=== PATIENT | female | born 1935 | race African-American/Black ===

== ENCOUNTER → 2016-07-13 | Outpatient (CLI) | payer MEDICARE, OTHER ==
[2015-10-21 19:17] VITALS: BP 141/78
[~2016-07-13] MED LIST: AMLO5TAB2 PO; AMOX1TAB61 PO; ASPI-482 PO; BUTA1CAP29 PO; CHOL100013 PO; HYDR-2672 PO; Hydrochlorothiazide PO; INFL100V IV; LOSA25TA4 PO; LOSA50TA2 PO; METO25TA9 PO; OMEG300C PO; ONDA4TAB10 PO; TRAM50TA PO
--- NOTE | 2016-07-13 15:04 | RAD ---
Renal ultrasound, 07/14/2016: History: Chronic kidney disease The right kidney measures 9.7 cm in length while the left kidney measures 9.4 cm. There is mild bilateral renal cortical scarring. The renal parenchymal echogenicity is within normal limits. There is no evidence of hydronephrosis or a renal mass. The bladder is poorly distended and well delineated. IMPRESSION: 1. Mild bilateral renal cortical scarring. 2. No evidence of renal obstruction.
[2016-07-13 15:36] LABS: ALBUMIN 3.4 g/dL (3.4-5.0); CALCIUM 9.5 mg/dL (8.5-10.1); CREATININE 1.3 mg/dL (0.6-1.0); GFR 47.5; PHOSPHORUS 3.1 mg/dL (2.6-4.7); POTASSIUM 4.2 mmol/L (3.5-5.1)
[2016-07-14 06:09] LABS: CREAT RD UR 21.5 mg/dL (Not Estab.); MICRO CREAT RATIO <55.8 mg/g creat (0.0-30.0); MICROALB RD UR <12.0 ug/mL (Not Estab.)
== END | disposition home or self-care (01) ==
LOC: US 13:24
PROVIDERS: ATTEND Internal Medicine Nephrology
DX: I12.9 Hypertensive chronic kidney disease with stage 1 through stage 4 chronic kidney disease, or unspecified chronic kidney disease (principal); N18.3 Chronic kidney disease, stage 3 (moderate); D63.1 Anemia in chronic kidney disease; R60.0 Localized edema; E21.3 Hyperparathyroidism, unspecified; N14.0 Analgesic nephropathy; E79.0 Hyperuricemia without signs of inflammatory arthritis and tophaceous disease; E55.9 Vitamin D deficiency, unspecified
CPT/HCPCS: 36415; 76770; 80069; 82043; 82570

== ENCOUNTER 2017-05-13 11:28 | Inpatient (IN) | payer MEDICARE, OTHER ==
[~2017-05-13] VITALS: Ht 157.5 cm; Wt 95.3 kg
[~2017-05-13 11:28] MED LIST changes: -HYDR-2672 PO; +HYDR-2766 PO; +METO-239 PO; -METO25TA9 PO
--- NOTE | 2017-05-13 12:06 | RAD ---
Lumbar spine, 3 views, 05/13/2017: History: Pain The lumbar vertebral heights are well-maintained. No acute fractures identified. There are moderate scattered marginal spurs. There are extensive hypertrophic degenerative changes involving the facet joints bilaterally in the lower lumbar spine. There appears to have been a previous laminectomy at the L5 level. Aortic calcific plaquing is present. IMPRESSION: Moderate multilevel degenerative change with extensive facet joint arthropathy in the lower lumbar spine.
--- NOTE | 2017-05-13 12:11 | PHYS DOC ---
General Chief Complaint: BACK PAIN OR INJURY Stated Complaint: BACK PAIN Time Seen by MD: 11:30 Source: patient, family Exam Limitations: no limitations Problems: History of Present Illness Initial Comments 81 y/o female to ED via EMS with report of 3 days low back pain. Patient states for three days she's had right flank pain and pain across her low back. Denies any falls or injury, has had urinary hesitancy no new leg weakness/incontinence/saddle anesthesia. Pain sharp, 8/10, worse with movement improved with rest. No midline or bony pain, no fever/chills/nausea/vomitting. No chest pain or shortness of breath. History of metastatic melanoma diagnosed 3 years ago follows at , PCP Dr Maldonado. She is s/p excision currently on dabrafenib. Patient is vague historian, once spouse arrives he states patient has had similar symptoms in the past. He says in past pains have been attributed to oral chemotherapy dabrafenib, and cutting that med dose in half has resolved her symptoms. Dosage adjusted yesterday, patient still hurting. He also relays that patient uses a walker at home but with the pain he's had to assist her standing from sitting/stooling, he says the pain/weakness has resolved more quickly in past with dosage adjustment, she also takes oxycodone IR 5mg prn q4hrs. Timing/Duration: other (3 days) Modifying Factors: worse with movement, improves with rest Associated Symptoms: other Allergies: Coded Allergies: No Known Drug Allergies (Unverified , 04/02/14) Past Medical History Medical History: other (metastatic melanoma, hypertension, renal insufficiency , obstructive sleep apnea uses CPAP, osteoarthritis, chronic left lower extremity lymphedema) Surgical History: cancer surgery, other (right Port-A-Cath, bilateral knees, tonsillectomy) Social History Smoker: non-smoker Alcohol: none Drugs: none Review of Systems Constitutional: denies chills, denies diaphoresis, denies fever, denies malaise Respiratory: denies cough, denies shortness of breath, denies wheezing Cardiovascular: denies chest pain, denies palpitations, denies syncope Gastrointestinal: denies abdominal pain, denies diarrhea, denies nausea, denies vomiting Genitourinary: denies dysuria, denies frequency, denies hematuria Musculoskeletal: see HPI Psychiatric/Neurological: see HPI, denies headache, denies numbness, denies paresthesia Hematologic/Lymphatic: denies blood clots, denies easy bleeding, denies easy bruising Physical Exam General Appearance: moderate distress (complaining of pain) Ear, Nose, Throat: hearing grossly normal, normal ENT inspection Neck: full range of motion, supple Respiratory: normal breath sounds, no respiratory distress Cardiovascular: normal peripheral pulses, regular rate, rhythm Gastrointestinal: non tender, soft Back: no vertebral tenderness, CVA tenderness (R) Extremities: non-tender, other (left leg swelling per HPI) 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 PHYSICIAN: TELLY APARICIO DO REASON: R hip and Lumbar spine pain no trauma PROCEDURE: LUMBAR SPINE 2-3V Lumbar spine, 3 views, 05/13/2017: History: Pain The lumbar vertebral heights are well-maintained. No acute fractures identified. There are moderate scattered marginal spurs. There are extensive hypertrophic degenerative changes involving the facet joints bilaterally in the lower lumbar spine. There appears to have been a previous laminectomy at the L5 level. Aortic calcific plaquing is present. IMPRESSION: Moderate multilevel degenerative change with extensive facet joint arthropathy in the lower lumbar spine. DICTATED AND SIGNED BY: TRACY DALY MD DATE: 05/13/17 1201 CC: NELIDA MALDONADO MD; TELLY APARICIO DO ~ PATIENT: WHITNEY FISHER ACCOUNT: [id number] : 1935 LOCATION: ER AGE: 81 SEX: F EXAM STATUS: REG ER ORD. PHYSICIAN: TELLY APARICIO DO REASON: R hip and Lumbar spine pain no trauma PROCEDURE: HIP BILATERAL WITH PELVIS Pelvis with both hips, 5 views, 05/13/2017: History: Pelvic, hip and back pain No fracture or dislocation is identified. No destructive bony lesion is seen. There is mild marginal spurring at both hip joints. Surgical clips are present at the inferior groin level on the left. IMPRESSION: 1. Mild degenerative change at both hip joints 2. No acute bony abnormality is detected. DICTATED AND SIGNED BY: TRACY DALY MD DATE: 05/13/17 1204 CC: NELIDA MALDONADO MD; TELLY APARICIO DO ~ Pain relief quickly with dilaudid 0.5mg IV x 1 on arrival, now 03/31. 1339: Time in department just over two hours, pt pain is much better but she has been unable to produce urine. With +Brandon and immunocompromise need UA, pt is drinking water no new or progressive complaints. 1431: Patient has been pain free, UA negative. Will ambulate to ensure her will be able to handle her at home. 1449: Patient requires two person assist to ambulate, is agreeable for admission. Basic labs initiated, will discuss with hospitalist. Pertinent labs: Sodium 128, BUN 22, creatinine 1.3, AST 61, creatine kinase 643 Patient discussed with transportation coordinator hospitalist Dr. Nash who accepts inpatient MedSurg admission for hydration, serial labs, and analgesia. Impressions: Adverse medication reaction with myalgia and weakness (danafrenib) Hypovolemic hyponatremia Elevated CK Departure Disposition: ADMITTED INPATIENT Condition: IMPROVED Additional Instructions: MedSurg admission Dr. Nash is accepting TELLY APARICIO DO May 13, 2017 12:11
[2017-05-13] MEDS ORDERED: HYDROmorphone PF 1 MG/ML DISP.SYRIN IV ONE (12:15)
[2017-05-13 14:12] LABS: BACTERIA,URINE FEW /HPF (0-FEW); BILIRUBIN,URINE NEG (NEG); CLARITY,URINE HAZY; COLOR,URINE AMBER; GLUCOSE,URINE NEG (NEG); NITRITE,URINE NEG (NEG); SQUAMOUS EPITHELIAL CELL,UR MOD /LPF; UROBILINOGEN,URINE 1 mg/dL (0.2 mg/dL)
[2017-05-13] MEDS ORDERED: IV NORMAL SALINE 1,000ML 1,000 ML IV SCH ×2 (14:41→16:02)
[2017-05-13 15:01] LABS: BASO % 1 % (0-3); EOS % 0 % (0-3); HEMATOCRIT 35.7 % (36.0-47.0); HEMOGLOBIN 12.3 g/dL (12.0-15.5); LYMPH # 0.9 x10^3/uL (1.0-4.8); LYMPH % 21 % (24-48); MEAN CORPUSCULAR HEMOGLOBIN 31 pg (25-35); MEAN CORPUSCULAR HGB CONC 34 g/dL (31-37); MEAN CORPUSCULAR VOLUME 91 fL (79-100); MONO # 0.1 x10^3/uL (0.0-1.1); MONO % 3 % (0-9); NEUT # 3.1 x10^3uL (1.8-7.7); NEUT % 76 % (31-73); PLATELET COUNT 151 x10^3/uL (140-400); RED BLOOD COUNT 3.94 x10^6/uL (3.50-5.40); RED CELL DISTRIBUTION WIDTH 13.1 % (11.5-14.5); WHITE BLOOD COUNT 4.1 x10^3/uL (4.0-11.0)
[2017-05-13 15:14] LABS: ALBUMIN 2.7 g/dL (3.4-5.0); ALBUMIN/GLOBULIN RATIO 0.6 (1.0-1.7); CALCIUM 8.7 mg/dL (8.5-10.1); CREATININE 1.3 mg/dL (0.6-1.0); GFR 47.5; POTASSIUM 3.9 mmol/L (3.5-5.1); TOTAL BILIRUBIN 0.4 mg/dL (0.2-1.0); TOTAL PROTEIN 6.9 g/dL (6.4-8.2)
[2017-05-13] MEDS ORDERED: MORPHINE SULFATE 4 MG/ML DISP.SYRIN. IV PRN (16:15)
[2017-05-13] MEDS ORDERED: ACET325T9 PO (17:52)
[2017-05-13] MEDS ORDERED: LEVO100T5 PO (17:52)
[2017-05-13] MEDS ORDERED: MULT1TAB52 PO (17:52)
[2017-05-13] MEDS ORDERED: POLY17PO5 PO (17:52)
[2017-05-13] MEDS ORDERED: LORA0.5T96 PO (17:52)
[2017-05-13] MEDS ORDERED: LOSA1TAB12 PO (17:52)
[2017-05-13] MEDS ORDERED: OXYC5TAB88 PO (17:52)
[2017-05-13] MEDS ORDERED: CLOT15CR3 TP (17:52)
[2017-05-13] MEDS ORDERED: CLOB15OI3 TP (17:52)
[2017-05-13 17:56] VITALS: BP 103/49
[2017-05-13] MEDS ORDERED: LORazepam 0.5 MG TABLET PO PRN (18:30)
[2017-05-13] MEDS ORDERED: POLYETHYLENE GLYCOL 3350 17 GM PACKET. PO PRN (18:30)
[2017-05-13] MEDS: ACETAMINOPHEN 325 MG TABLET PO PRN (19:01)
[2017-05-13 19:10] VITALS: BP 119/65
[2017-05-13] MEDS: ASPIRIN ENTERIC COATED 81 MG TABLET.DR. PO SCH (20:10)
[2017-05-13] MEDS: CLOBETASOL EMOLLIENT 0.05% TOPICAL CREAM 15GM TUBE. TP SCH (20:33)
[2017-05-13] MEDS: CLOTRIMAZOLE/BETAMETH 1%-0.05% TOPICAL CREAM 15GM TUBE. TP SCH (20:33)
[2017-05-13 23:04] VITALS: BP 160/78
[2017-05-14] MEDS: ACETAMINOPHEN 325 MG TABLET PO PRN ×4 (02:10→23:50)
[2017-05-14 04:29] LABS: INFLUENZA A PATIENT NEGATIVE (NEGATIVE); INFLUENZA B PATIENT NEGATIVE (NEGATIVE)
[2017-05-14 04:32] VITALS: BP 105/55
[2017-05-14 04:46] LABS: BASO % 1 % (0-3); EOS % 0 % (0-3); HEMATOCRIT 33.2 % (36.0-47.0); HEMOGLOBIN 11.5 g/dL (12.0-15.5); LYMPH # 0.3 x10^3/uL (1.0-4.8); LYMPH % 10 % (24-48); MEAN CORPUSCULAR HEMOGLOBIN 31 pg (25-35); MEAN CORPUSCULAR HGB CONC 35 g/dL (31-37); MEAN CORPUSCULAR VOLUME 90 fL (79-100); MONO # 0.1 x10^3/uL (0.0-1.1); MONO % 3 % (0-9); NEUT # 3.1 x10^3uL (1.8-7.7); NEUT % 87 % (31-73); PLATELET COUNT 127 x10^3/uL (140-400); RED BLOOD COUNT 3.67 x10^6/uL (3.50-5.40); RED CELL DISTRIBUTION WIDTH 13.2 % (11.5-14.5); WHITE BLOOD COUNT 3.5 x10^3/uL (4.0-11.0)
[2017-05-14 05:02] LABS: ALBUMIN 2.4 g/dL (3.4-5.0); ALBUMIN/GLOBULIN RATIO 0.6 (1.0-1.7); CALCIUM 8.3 mg/dL (8.5-10.1); CREATININE 1.3 mg/dL (0.6-1.0); GFR 47.5; MAGNESIUM 1.6 mg/dL (1.8-2.4); POTASSIUM 3.7 mmol/L (3.5-5.1); TOTAL BILIRUBIN 0.5 mg/dL (0.2-1.0); TOTAL PROTEIN 6.3 g/dL (6.4-8.2)
[2017-05-14 05:39] LABS: % BANDS 35 % (0-9); % LYMPHS 9 % (24-48); % METAS 1 % (0-0); % MONOS 3 % (0-10); % SEGS 52 % (35-66); PLT ESTIMATE ADEQUATE (ADEQUATE)
[2017-05-14 05:40] LABS: ANISOCYTOSIS SLIGHT; HYPOCHROMIA SLIGHT; PLATELET CLUMP PRESENT; POLYCHROMASIA SLIGHT
[2017-05-14 05:41] LABS: OVALOCYTES OCC; TOXIC GRANULATION MOD; TOXIC VACUOLATION MOD
[2017-05-14] MEDS: IV NORMAL SALINE 1,000ML 1,000 ML IV SCH ×2 (05:58→15:49)
[2017-05-14 06:20] VITALS: BP 169/81
[2017-05-14] MEDS: LEVOTHYROXINE 100 MCG TABLET PO SCH (07:05)
--- NOTE | 2017-05-14 07:07 | EKG ---
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
[2017-05-14] MEDS: CHOLECALCIFEROL (VITAMIN D3) 1,000 UNIT TABLET PO SCH ×2 (09:00→21:30)
[2017-05-14] MEDS ORDERED: METOPROLOL SUCC 24HR ER 25 MG TAB.ER.24H. PO SCH (09:00)
[2017-05-14] MEDS ORDERED: hydroCHLOROthiazide 25 MG TABLET PO SCH (09:00)
[2017-05-14] MEDS: CLOBETASOL EMOLLIENT 0.05% TOPICAL CREAM 15GM TUBE. TP SCH ×2 (09:00→21:00)
[2017-05-14] MEDS: CLOTRIMAZOLE/BETAMETH 1%-0.05% TOPICAL CREAM 15GM TUBE. TP SCH ×2 (09:00→21:00)
[2017-05-14] MEDS ORDERED: OSELTAMIVIR 75 MG CAPSULE PO SCH (09:00)
--- NOTE | 2017-05-14 09:00 | PDOC2 ---
CONSULT Date of Admission DATE: 05/14/17 TIME: 08:53 Reason for Consult: tachycardia Problem List Problems Medical Problems: (1) Weakness Status: Acute History of Present Illness Ms Langford is an 81 year old female who presented with complaints of low back and flank pain as well as weakness. She was admitted for evaluation and this am was noted to be in atrial fibrillation with a rapid ventricular response so consult was called. She was given pain medications which apparently resolved her pain and this am she is up in a chair without complaints. She did develop a fever but denies any respiratory of urinary symptoms. She denies any chest pain, dyspnea, congestive symptoms. She denies any palpitations, lightheadedness or syncope. Past Medical History hypertension, chronic kidney disease, morbid obesity, obstructive sleep apnea on CPAP, metastatic melanoma, osteoarthritis and left lower extremity lymphedema secondary to resection of melanoma, rheumatoid arthritis. Past Surgical History Port-A-Cath placement, right knee arthroscopic surgery, left total knee arthroplasty, back surgery, tonsillectomy, appendectomy Family History cancer, diabetes, CAD Social History non smoker, No significant ETOH, no illicit drugs Current Medications Current Medications Hydromorphone HCl (Dilaudid) 0.5 mg 1X ONCE IV Last administered on 05/13/17at 12:21; Start 05/13/17 at 12:15; Stop 05/13/17 at 12:16; Status DC Sodium Chloride 1,000 ml @ 1,000 mls/hr Q1H IV Last administered on 05/13/17at 14:41; Start 05/13/17 at 14:41; Stop 05/13/17 at 15:41; Status DC Morphine Sulfate (Morphine 4mg Syringe) 4 mg PRN Q2HR PRN IV PAIN; Start at 16:15; Stop 05/14/17 at 16:14 Sodium Chloride 1,000 ml @ 200 mls/hr Q5H IV Last administered on 05/13/17at 19 :02; Start 05/13/17 at 16:02; Stop 05/13/17 at 21:01; Status DC Acetaminophen (Tylenol) 650 mg PRN Q6HRS PRN PO PAIN Last administered on at 02:10; Start 05/13/17 at 18:30 Aspirin (Aspirin Enteric Coated) 81 mg HS PO Last administered on 05/13/17at 20: 10; Start 05/13/17 at 21:00 Betamethasone/ Clotrimazole (Lotrisone) 1 jaden BID TP ; Start 05/13/17 at 21:00 Levothyroxine Sodium (Synthroid) 100 mcg DAILYAC PO Last administered on at 07:05; Start 05/14/17 at 07:30 Lorazepam (Ativan) 0.5 mg PRN QHS PRN PO ANXIETY / AGITATION; Start 05/13/17 at 18:30 Metoprolol Succinate (Toprol Xl) 25 mg DAILY PO ; Start 05/14/17 at 09:00 Oxycodone HCl (Roxicodone) 5 mg PRN Q4HRS PRN PO PAIN; Start 05/13/17 at 18:30 Polyethylene Glycol (miraLAX) 17 gm PRN DAILY PRN PO CONSTIPATION; Start at 18:30 Vitamin D (Vitamin D3) 1,000 unit QHS PO ; Start 05/14/17 at 09:00 Clobetasol Propionate 1 jaden BID TP ; Start 05/13/17 at 21:00 Losartan Potassium (Cozaar) 100 mg DAILY PO ; Start 05/14/17 at 09:00 Multivitamins/ Calcium (Thera-M Plus) 1 tab DAILY PO ; Start 05/14/17 at 09:00 Fish Oil (Fish Oil) 1,000 mg BID PO ; Start 05/14/17 at 09:00 Hydrochlorothiazide (Hydrodiuril) 25 mg DAILY PO ; Start 05/14/17 at 09:00 Sodium Chloride 1,000 ml @ 75 mls/hr [id number] IV Last administered on at 05:58; Start 05/14/17 at 06:00 Oseltamivir Phosphate (Tamiflu) 75 mg DAILY PO ; Start 05/14/17 at 09:00; Stop 05/24/17 at 08:59 Active Scripts Active Reported Multivitamins (Multivitamin) 1 Each Tablet 1 Tab PO DAILY Miralax (Polyethylene Glycol 3350) 17 Gm Powd.pack 1 Packet PO DAILY PRN Roxicodone (Oxycodone HCl) 5 Mg Tablet 5 Mg PO PRN Q4HRS PRN Hyzaar 100-25 Tablet (Losartan/Hydrochlorothiazide) 1 Each Tablet 1 Tab PO DAILY Ativan (Lorazepam) 0.5 Mg Tablet 0.5 Mg PO PRN QHS PRN Levothyroxine Sodium 100 Mcg Tablet 1 Tab PO DAILYAC Lotrisone Cream (Clotrimazole/Betamethasone Dip) 15 Gm Cream..g. 1 Jaden TP BID Temovate (Clobetasol Propionate) 15 Gm Oint...g. 1 Jaden TP BID Tylenol (Acetaminophen) 325 Mg Tablet 2 Tab PO PRN Q6HRS PRN Metoprolol Succinate ( Xl ) (Metoprolol Succinate) 25 Mg Tab.er.24h 1 Tab PO DAILY Vitamin D (Cholecalciferol (Vitamin D3)) 1,000 Unit Capsule 1 Cap PO HS Aspir 81 (Aspirin) 81 Mg Tablet.dr 1 Tab PO HS Fish Oil (Jane Lew-3 Fatty Acids) 300 Mg Capsule 300 Mg PO BID Allergies: Coded Allergies: No Known Drug Allergies (Unverified , 04/02/14) Review of System as per HPI General: Alert, Oriented X3, Cooperative, No acute distress HEENT: Atraumatic, EOMI Lungs: Clear to auscultation Heart: Other (irregular rate and rhythm, no gallops, clicks or rubs) Abdomen: Normal bowel sounds, Soft Extremities: Other (1+ edema) Neuro: Normal speech, Strength at 5/5 X4 ext Psych/Mental Status: Mental status NL, Mood NL VITALS Vital Signs Date Time Temp Pulse Resp B/P (MAP) Pulse Ox O2 Delivery O2 Flow Rate FiO2 05/14/17 06:20 102.8 78 16 169/81 (110) 96 Room Air Labs Laboratory Tests Test 05/13/17 12:20 05/13/17 13:47 05/14/17 02:33 05/14/17 03:53 White Blood Count 4.1 x10^3/uL (4.0-11.0) 3.5 x10^3/uL (4.0-11.0) Red Blood Count 3.94 x10^6/uL (3.50-5.40) 3.67 x10^6/uL (3.50-5.40) Hemoglobin 12.3 g/dL (12.0-15.5) 11.5 g/dL (12.0-15.5) Hematocrit 35.7 % (36.0-47.0) 33.2 % (36.0-47.0) Mean Corpuscular Volume 91 fL (79-100) 90 fL (79-100) Mean Corpuscular Hemoglobin 31 pg (25-35) 31 pg (25-35) Mean Corpuscular Hemoglobin Concent 34 g/dL (31-37) 35 g/dL (31-37) Red Cell Distribution Width 13.1 % (11.5-14.5) 13.2 % (11.5-14.5) Platelet Count 151 x10^3/uL (140-400) 127 x10^3/uL (140-400) Neutrophils (%) (Auto) 76 % (31-73) 87 % (31-73) Lymphocytes (%) (Auto) 21 % (24-48) 10 % (24-48) Monocytes (%) (Auto) 3 % (0-9) 3 % (0-9) Eosinophils (%) (Auto) 0 % (0-3) 0 % (0-3) Basophils (%) (Auto) 1 % (0-3) 1 % (0-3) Neutrophils # (Auto) 3.1 x10^3uL (1.8-7.7) 3.1 x10^3uL (1.8-7.7) Lymphocytes # (Auto) 0.9 x10^3/uL (1.0-4.8) 0.3 x10^3/uL (1.0-4.8) Monocytes # (Auto) 0.1 x10^3/uL (0.0-1.1) 0.1 x10^3/uL (0.0-1.1) Eosinophils # (Auto) 0.0 x10^3/uL (0.0-0.7) 0.0 x10^3/uL (0.0-0.7) Basophils # (Auto) 0.0 x10^3/uL (0.0-0.2) 0.0 x10^3/uL (0.0-0.2) Sodium Level 128 mmol/L (136-145) 128 mmol/L (136-145) Potassium Level 3.9 mmol/L (3.5-5.1) 3.7 mmol/L (3.5-5.1) Chloride Level 93 mmol/L (98-107) 95 mmol/L (98-107) Carbon Dioxide Level 25 mmol/L (21-32) 24 mmol/L (21-32) Anion Gap 10 (6-14) 9 (6-14) Blood Urea Nitrogen 22 mg/dL (7-20) 19 mg/dL (7-20) Creatinine 1.3 mg/dL (0.6-1.0) 1.3 mg/dL (0.6-1.0) Estimated GFR (Cockcroft-Gault) 47.5 47.5 BUN/Creatinine Ratio 17 (6-20) 15 (6-20) Glucose Level 117 mg/dL (70-99) 127 mg/dL (70-99) Calcium Level 8.7 mg/dL (8.5-10.1) 8.3 mg/dL (8.5-10.1) Total Bilirubin 0.4 mg/dL (0.2-1.0) 0.5 mg/dL (0.2-1.0) Aspartate Amino Transf (AST/SGOT) 61 U/L (15-37) 82 U/L (15-37) Alanine Aminotransferase (ALT/SGPT) 38 U/L (14-59) 42 U/L (14-59) Alkaline Phosphatase 94 U/L (46-116) 90 U/L (46-116) Creatine Kinase 643 U/L (26-192) Troponin I Quantitative 0.040 ng/mL (0-0.055) OC-Rti-U-Type Natriuretic Peptide 132 pg/mL (0-449) Total Protein 6.9 g/dL (6.4-8.2) 6.3 g/dL (6.4-8.2) Albumin 2.7 g/dL (3.4-5.0) 2.4 g/dL (3.4-5.0) Albumin/Globulin Ratio 0.6 (1.0-1.7) 0.6 (1.0-1.7) Urine Collection Type Unknown Urine Color Nesha Urine Clarity Hazy Urine pH 5.5 Urine Specific [place] 1.020 Urine Protein Trace (NEG-TRACE) Urine Glucose (UA) Neg mg/dL (NEG) Urine Ketones (Stick) Trace mg/dL (NEG) Urine Blood Neg (NEG) Urine Nitrite Neg (NEG) Urine Bilirubin Neg (NEG) Urine Urobilinogen Dipstick 1 mg/dL (0.2 mg/dL) Urine Leukocyte Esterase Neg (NEG) Urine RBC 1-2 /HPF (0-2) Urine WBC 1-4 /HPF (0-4) Urine Squamous Epithelial Cells Mod /LPF Urine Bacteria Few /HPF (0-FEW) Urine Mucus Mod /LPF Influenza Type A (Rapid) Negative (NEGATIVE) Influenza Type B (Rapid) Negative (NEGATIVE) Segmented Neutrophils % 52 % (35-66) Band Neutrophils % 35 % (0-9) Lymphocytes % 9 % (24-48) Monocytes % 3 % (0-10) Metamyelocytes % 1 % (0-0) Toxic Granulation Mod Toxic Vacuolation Mod Dohle Bodies Few Platelet Estimate Adequate (ADEQUATE) Platelet Clumps, EDTA Present Large Platelets Occ Giant Platelets Occ Polychromasia Slight Hypochromasia Slight Anisocytosis Slight Ovalocytes Occ Lactic Acid Level 0.7 mmol/L (0.4-2.0) Magnesium Level 1.6 mg/dL (1.8-2.4) Test 05/14/17 05:43 05/14/17 06:45 Group A Streptococcus Rapid Negative (NEGATIVE) Creatine Kinase 1310 U/L (26-192) Creatine Kinase MB (Mass) 2.2 ng/mL (0.0-3.6) Creatine Kinase MB Relative Index 0.2 % (0-4) Bedside Troponin I 0.08 ng/ml (<0.08) Images Lumbar spine xray IMPRESSION: Moderate multilevel degenerative change with extensive facet joint arthropathy in the lower lumbar spine. Hip/pelvis xray IMPRESSION: 1. Mild degenerative change at both hip joints 2. No acute bony abnormality is detected. EKG atrial fibrillation with RVR, left axis deviation, no acute st/t changes Assessment/Plan 1. paroxysmal atrial fibrillation RVR - [id number] = 4. Check echocardiogram , TSH. Increase metoprolol for rate control, Cardizem PRN. Eliquis for stroke prophylaxis. 2. hypertension - increase metoprolol, PRN hydralazine. 3. HLD - check lipids 4. FUO - cx pending, per PCP 5. low back/flank pain - per PCP Problems: ELISSA CHAHAL APRN May 14, 2017 09:00
[2017-05-14] MEDS ORDERED: DEXTROSE 5% IV PRN (09:30)
[2017-05-14] MEDS ORDERED: DILTIAZEM IV PRN (09:30)
[2017-05-14] MEDS ORDERED: METOPROLOL SUCC 24HR ER 50 MG TAB.ER.24H. PO SCH (09:30)
[2017-05-14] MEDS: OMEGA-3 FATTY ACIDS/FISH OIL 1,000 MG CAPSULE. PO SCH ×2 (09:44→21:30)
[2017-05-14] MEDS: APIXABAN 5 MG TABLET. PO SCH ×2 (09:45→21:30)
[2017-05-14] MEDS: LOSARTAN 50 MG TABLET. PO SCH (09:45)
[2017-05-14] MEDS: MULTIVITAMIN with MINERAL TABLET. PO SCH (09:45)
--- NOTE | 2017-05-14 10:47 | RAD ---
Portable chest, 05/14/2017: History: Fever Comparison is made to a study from 10/25/2015. A right Port-A-Cath extends into the superior aspect of the right atrium. The heart size and pulmonary vascularity are normal. A vague opacity projected over the right upper chest is probably related to the port. No definite acute infiltrate is seen. There is no evidence of pleural fluid. IMPRESSION: No acute cardiopulmonary abnormality is detected.
[2017-05-14 11:14] VITALS: BP 100/66
--- NOTE | 2017-05-14 14:08 | HP ---
ADMIT DATE: 05/13/2017 REASON FOR ADMISSION: Back pain. HISTORY OF PRESENT ILLNESS: This is an 81-year-old female who came to the Emergency Room with reports of 3 days of low back pain, right flank pain; at that time she has had some urinary hesitancy. She got some Dilaudid in the Emergency Room and that relieved her back pain. She did have a lot of myalgias. Her mobility was severely impaired and so it was decided to admit her. Then, she did spike a temperature while on the floor. PAST MEDICAL HISTORY: Significant for malignant melanoma which she has been on a chemotherapy drug called Dabrafenib, which she has had some doses cut down and then being and where she has had some problems with pain with this. I guess it is being held at the present time. Other medical problems include hypertension, chronic kidney disease, morbid obesity, obstructive sleep apnea, osteoarthritis, lower extremity lymphedema. PAST SURGICAL HISTORY: Port-A-Cath placement in the right infraclavicular area, right knee arthroscopic surgery, total left knee arthroplasty, back surgery, tonsillectomy and resection of the melanoma on the left hip. ALLERGIES: None. MEDICATIONS: Reviewed and are available on the MAR. FAMILY HISTORY: She comes from a very large family of 2 brothers and 7 sisters, and 8 brothers apparently . 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 REVIEW OF SYSTEMS: The patient feels very weak, unable to stand, cannot move very well, chills, mild confusion. OBJECTIVE: VITAL SIGNS: Temperature this morning was 102.8 oral, blood pressure was 169/81; pulse 78, pulse also increased to 151 and was found to be in AFib with RVR, pulse ox 96% on room air. NEUROLOGIC: Her mental state is somewhat confused. She has chills. HEENT: Her eyes are clear. Throat was clear. There was no injection of the posterior pharynx. NECK: Supple. LUNGS: With some coarse breath sounds in the bases, otherwise clear. CARDIOVASCULAR: Rapid rhythm and rate consistent with an irregular rhythm consistent with AFib with rapid ventricular response. ABDOMEN: Soft, nontender. EXTREMITIES: Without gross edema, did not have back pain. LABORATORY DATA: CBC: White count decreased to 3.5 this morning, hemoglobin 11.5, hematocrit 33.2, platelet count 127. Chemistry: Sodium 128, chloride 95, creatinine 1.3. CK is 1310, albumin 2.4. Strep negative. Influenza A and B also negative. Urinalysis negative except with trace of ketones. IMAGING: Chest x-ray negative for pneumonia. Hip and pelvis x-ray with mild degeneration of both hips, otherwise negative. Lumbar spine x-ray, moderate multilevel degenerative changes. ASSESSMENT: 1. Febrile illness, suspect influenza with low white count, we will start on Tamiflu. 2. Mild rhabdomyolysis, questionable etiology, appears somewhat dehydrated and is receiving IV fluids. 3. Dehydration. 4. Extreme weakness and debility, requiring a 2-person lift to get her into bed, we will have PT and OT see. 5. History of metastatic melanoma, chemo being held currently. 6. Hypertension. 7. Paroxysmal atrial fibrillation with rapid ventricular rate, secondary to the fever. Cardiology is monitoring and has increased the metoprolol, could go along the drip and be transferred to the ICU if it becomes continuous 8. Debilitated state. PLAN: IV fluid, support, PT, OT, Tamiflu. The patient is a DNR. Monitor heart rate closely, protect from falls. MEL TARANGO DO DR: DARRICK/mina JOB#: [id number] / [id number]
[2017-05-14 14:44] LABS: THYROID STIM HORMONE (TSH) 0.143 uIU/mL (0.358-3.740)
[2017-05-14 15:05] VITALS: BP 89/56
[2017-05-14] MEDS: oxyCODONE IR 5 MG TABLET PO PRN (16:27)
[2017-05-14] MEDS: METOPROLOL TART IMMED RELEASE 25 MG TABLET PO SCH ×2 (18:00→23:49)
[2017-05-14 19:57] VITALS: BP 92/60
[2017-05-14] MEDS: OSELTAMIVIR 75 MG CAPSULE PO SCH (21:30)
[2017-05-14] MEDS: ASPIRIN ENTERIC COATED 81 MG TABLET.DR. PO SCH (21:30)
[2017-05-14 23:53] VITALS: BP 116/76
[2017-05-15] VITALS (15 sets, daily range): BP systolic 64–131; BP diastolic 46–86
[2017-05-15] MEDS: IV NORMAL SALINE 1,000ML 1,000 ML IV SCH ×4 (01:48→23:40)
[2017-05-15] MEDS: METOPROLOL TART IMMED RELEASE 25 MG TABLET PO SCH ×2 (05:50→12:25)
[2017-05-15] MEDS: LEVOTHYROXINE 100 MCG TABLET PO SCH (05:50)
[2017-05-15] MEDS: ACETAMINOPHEN 325 MG TABLET PO PRN ×3 (05:51→19:46)
--- NOTE | 2017-05-15 07:37 | PDOC ---
PROGRESS NOTES Diagnosis Problem Problems Medical Problems: (1) Weakness Status: Acute Assessment 1. Generalized weakness: Was having difficult walking prior to admission. Imaging studies negative. Pt retains strength against resistance in all extremities. CK was elevated, will repeat today. 2. Febrile illness: Rapid flu and strep negative. Pt CXR negative, UA negative. Pt is on chemotherapy for metastatic melanoma, mildly neutropenic yesterday. Continues to have high fevers, is on Tamiflu for presumed flu, respiratory viral panel pending. Pt on droplet isolation. Consider empiric abx if WBC worse today. Source unknown at this time, so still highly likely to be viral. Stools formed today. Continue PRN Tylenol for fever. 3. Hyponatremia: Pt on IVF, will repeat lytes today. 4. Moderate-severe PEM: Encourage nutritional supplements. 5. Metastatic melanoma: Pt receives treatment for [facility]. If pt becomes neutropenic, will need to d/w pt re: possible transfer to . 6. DVT proph: Pt high risk, on Eliquis for Afib. Cont SCD's. 7. Elevated transaminases: Repeat today. 8. Mild rhabdomyolysis: Pt on IVF. Weakness improving. Repeat CK today. 9. CKD, stage 2: Creat 1.3 on admit, baseline 1.1. Continue hydration, repeat BMP today. 10. Abnormal TSH: A little low. Will adjust accordingly. Decrease home Levothyroxine from 100 mcg to 88 mcg daily. Repeat TSH in 4 weeks. 11. Atrial fibrillation: Pt on Eliquis, cardiology following. Echo pending. Continue BB, PRN CCB. Problems: Plan of Care: see other orders Subjective Pt admitted after experience extreme weakness and inability to walk at home. Reports high fevers started after admission. Pt currently being treated empirically for the flu. Cultures NGTD. Pt not having diarrhea. Denies vomiting, abd pain, SOA, productive cough, or burning w/ urination. Pt reports she feels a little "confused." Denies KWON or dizziness. Per nursing, pt still spiking fevers as high as 103 overnight. Pt reports that prior to coming to hospital she was evaluated by her oncologist and they suspected that her chemo med was potentially causing some of her weakness. Objective Vital Signs Date Time Temp Pulse Resp B/P (MAP) Pulse Ox O2 Delivery O2 Flow Rate FiO2 05/15/17 05:54 101.1 96 18 109/62 (78) 91 BiPAP/CPAP Intake and Output 05/15/17 07:00 Intake Total 3223.67 ml Output Total 403 ml Balance 2820.67 ml Intake Oral 1240 ml IV Total 1983.67 ml Output Urine Total 403 ml # Voids 1 # Bowel Movements 1 Abdomen: Normal bowel sounds, Soft, No tenderness, No hepatospenomegaly, No masses Heart: Other (Irregularly irregular, no murmur) Extremities: Normal pulses, No tenderness/swelling General: Alert, Cooperative, No acute distress HEENT: Atraumatic, PERRLA, EOMI, Mucous membr. moist/pink Lungs: Clear to auscultation, Normal air movement Neck: No JVD, No thyromegaly, No LAD Neuro: Normal speech, Strength at 5/5 X4 ext, Normal tone, Cranial nerves 3-12 NL Psych/Mental Status: Mental status NL, Mood NL Skin: No rashes Review of Relevant I have reviewed the following items john (where applicable) has been applied. Labs Laboratory Tests Test 05/13/17 12:20 05/13/17 13:47 05/14/17 02:33 05/14/17 03:53 White Blood Count 4.1 x10^3/uL (4.0-11.0) 3.5 x10^3/uL (4.0-11.0) Red Blood Count 3.94 x10^6/uL (3.50-5.40) 3.67 x10^6/uL (3.50-5.40) Hemoglobin 12.3 g/dL (12.0-15.5) 11.5 g/dL (12.0-15.5) Hematocrit 35.7 % (36.0-47.0) 33.2 % (36.0-47.0) Mean Corpuscular Volume 91 fL (79-100) 90 fL (79-100) Mean Corpuscular Hemoglobin 31 pg (25-35) 31 pg (25-35) Mean Corpuscular Hemoglobin Concent 34 g/dL (31-37) 35 g/dL (31-37) Red Cell Distribution Width 13.1 % (11.5-14.5) 13.2 % (11.5-14.5) Platelet Count 151 x10^3/uL (140-400) 127 x10^3/uL (140-400) Neutrophils (%) (Auto) 76 % (31-73) 87 % (31-73) Lymphocytes (%) (Auto) 21 % (24-48) 10 % (24-48) Monocytes (%) (Auto) 3 % (0-9) 3 % (0-9) Eosinophils (%) (Auto) 0 % (0-3) 0 % (0-3) Basophils (%) (Auto) 1 % (0-3) 1 % (0-3) Neutrophils # (Auto) 3.1 x10^3uL (1.8-7.7) 3.1 x10^3uL (1.8-7.7) Lymphocytes # (Auto) 0.9 x10^3/uL (1.0-4.8) 0.3 x10^3/uL (1.0-4.8) Monocytes # (Auto) 0.1 x10^3/uL (0.0-1.1) 0.1 x10^3/uL (0.0-1.1) Eosinophils # (Auto) 0.0 x10^3/uL (0.0-0.7) 0.0 x10^3/uL (0.0-0.7) Basophils # (Auto) 0.0 x10^3/uL (0.0-0.2) 0.0 x10^3/uL (0.0-0.2) Sodium Level 128 mmol/L (136-145) 128 mmol/L (136-145) Potassium Level 3.9 mmol/L (3.5-5.1) 3.7 mmol/L (3.5-5.1) Chloride Level 93 mmol/L (98-107) 95 mmol/L (98-107) Carbon Dioxide Level 25 mmol/L (21-32) 24 mmol/L (21-32) Anion Gap 10 (6-14) 9 (6-14) Blood Urea Nitrogen 22 mg/dL (7-20) 19 mg/dL (7-20) Creatinine 1.3 mg/dL (0.6-1.0) 1.3 mg/dL (0.6-1.0) Estimated GFR (Cockcroft-Gault) 47.5 47.5 BUN/Creatinine Ratio 17 (6-20) 15 (6-20) Glucose Level 117 mg/dL (70-99) 127 mg/dL (70-99) Calcium Level 8.7 mg/dL (8.5-10.1) 8.3 mg/dL (8.5-10.1) Total Bilirubin 0.4 mg/dL (0.2-1.0) 0.5 mg/dL (0.2-1.0) Aspartate Amino Transf (AST/SGOT) 61 U/L (15-37) 82 U/L (15-37) Alanine Aminotransferase (ALT/SGPT) 38 U/L (14-59) 42 U/L (14-59) Alkaline Phosphatase 94 U/L (46-116) 90 U/L (46-116) Creatine Kinase 643 U/L (26-192) Troponin I Quantitative 0.040 ng/mL (0-0.055) HH-Rjq-I-Type Natriuretic Peptide 132 pg/mL (0-449) Total Protein 6.9 g/dL (6.4-8.2) 6.3 g/dL (6.4-8.2) Albumin 2.7 g/dL (3.4-5.0) 2.4 g/dL (3.4-5.0) Albumin/Globulin Ratio 0.6 (1.0-1.7) 0.6 (1.0-1.7) Urine Collection Type Unknown Urine Color Nesha Urine Clarity Hazy Urine pH 5.5 Urine Specific [place] 1.020 Urine Protein Trace (NEG-TRACE) Urine Glucose (UA) Neg mg/dL (NEG) Urine Ketones (Stick) Trace mg/dL (NEG) Urine Blood Neg (NEG) Urine Nitrite Neg (NEG) Urine Bilirubin Neg (NEG) Urine Urobilinogen Dipstick 1 mg/dL (0.2 mg/dL) Urine Leukocyte Esterase Neg (NEG) Urine RBC 1-2 /HPF (0-2) Urine WBC 1-4 /HPF (0-4) Urine Squamous Epithelial Cells Mod /LPF Urine Bacteria Few /HPF (0-FEW) Urine Mucus Mod /LPF Influenza Type A (Rapid) Negative (NEGATIVE) Influenza Type B (Rapid) Negative (NEGATIVE) Segmented Neutrophils % 52 % (35-66) Band Neutrophils % 35 % (0-9) Lymphocytes % 9 % (24-48) Monocytes % 3 % (0-10) Metamyelocytes % 1 % (0-0) Toxic Granulation Mod Toxic Vacuolation Mod Dohle Bodies Few Platelet Estimate Adequate (ADEQUATE) Platelet Clumps, EDTA Present Large Platelets Occ Giant Platelets Occ Polychromasia Slight Hypochromasia Slight Anisocytosis Slight Ovalocytes Occ Lactic Acid Level 0.7 mmol/L (0.4-2.0) Magnesium Level 1.6 mg/dL (1.8-2.4) Test 05/14/17 05:43 05/14/17 06:45 Group A Streptococcus Rapid Negative (NEGATIVE) Creatine Kinase 1310 U/L (26-192) Creatine Kinase MB (Mass) 2.2 ng/mL (0.0-3.6) Creatine Kinase MB Relative Index 0.2 % (0-4) Bedside Troponin I 0.08 ng/ml (<0.08) Triglycerides Level 100 mg/dL (0-150) Cholesterol Level 128 mg/dL (0-200) LDL Cholesterol, Calculated 68 mg/dL (0-100) VLDL Cholesterol, Calculated 20 mg/dL (0-40) Non-HDL Cholesterol Calculated 88 mg/dL (0-129) HDL Cholesterol 40 mg/dL (40-60) Cholesterol/HDL Ratio 3.0 Thyroid Stimulating Hormone (TSH) 0.143 uIU/mL (0.358-3.740) Microbiology 05/14/17 Blood Culture - Preliminary, Resulted NO GROWTH AFTER 1 DAY Medications Current Medications Hydromorphone HCl (Dilaudid) 0.5 mg 1X ONCE IV Last administered on 05/13/17at 12:21; Start 05/13/17 at 12:15; Stop 05/13/17 at 12:16; Status DC Sodium Chloride 1,000 ml @ 1,000 mls/hr Q1H IV Last administered on 05/13/17at 14:41; Start 05/13/17 at 14:41; Stop 05/13/17 at 15:41; Status DC Morphine Sulfate (Morphine 4mg Syringe) 4 mg PRN Q2HR PRN IV PAIN; Start at 16:15; Stop 05/14/17 at 16:14; Status DC Sodium Chloride 1,000 ml @ 200 mls/hr Q5H IV Last administered on 05/13/17at 19 :02; Start 05/13/17 at 16:02; Stop 05/13/17 at 21:01; Status DC Acetaminophen (Tylenol) 650 mg PRN Q6HRS PRN PO PAIN Last administered on at 05:51; Start 05/13/17 at 18:30 Aspirin (Aspirin Enteric Coated) 81 mg HS PO Last administered on 05/14/17at 21: 30; Start 05/13/17 at 21:00 Betamethasone/ Clotrimazole (Lotrisone) 1 jaden BID TP ; Start 05/13/17 at 21:00 Levothyroxine Sodium (Synthroid) 100 mcg DAILYAC PO Last administered on at 05:50; Start 05/14/17 at 07:30 Lorazepam (Ativan) 0.5 mg PRN QHS PRN PO ANXIETY / AGITATION Last administered on 05/14/17at 21:31; Start 05/13/17 at 18:30 Metoprolol Succinate (Toprol Xl) 25 mg DAILY PO ; Start 05/14/17 at 09:00; Stop 05/14/17 at 09:21; Status DC Oxycodone HCl (Roxicodone) 5 mg PRN Q4HRS PRN PO PAIN Last administered on 05/14at 16:27; Start 05/13/17 at 18:30 Polyethylene Glycol (miraLAX) 17 gm PRN DAILY PRN PO CONSTIPATION; Start at 18:30 Vitamin D (Vitamin D3) 1,000 unit QHS PO Last administered on 05/14/17at 21:30; Start 05/14/17 at 09:00 Clobetasol Propionate 1 jaden BID TP ; Start 05/13/17 at 21:00 Losartan Potassium (Cozaar) 100 mg DAILY PO Last administered on 05/14/17at 09: 45; Start 05/14/17 at 09:00 Multivitamins/ Calcium (Thera-M Plus) 1 tab DAILY PO Last administered on at 09:45; Start 05/14/17 at 09:00 Fish Oil (Fish Oil) 1,000 mg BID PO Last administered on 05/14/17at 21:30; Start 05/14/17 at 09:00 Hydrochlorothiazide (Hydrodiuril) 25 mg DAILY PO ; Start 05/14/17 at 09:00; Stop 05/14/17 at 09:24; Status DC Sodium Chloride 1,000 ml @ 75 mls/hr [id number] IV Last administered on at 01:48; Start 05/14/17 at 06:00 Oseltamivir Phosphate (Tamiflu) 75 mg DAILY PO Last administered on 05/14/17at 09:45; Start 05/14/17 at 09:00; Stop 05/14/17 at 09:53; Status DC Metoprolol Succinate (Toprol Xl) 50 mg DAILY PO Last administered on 05/14/17at 09:45; Start 05/14/17 at 09:30; Stop 05/14/17 at 16:14; Status DC Diltiazem HCl 100 mg/Dextrose 100 ml @ 0 mls/hr CONT PRN IV SEE I/O RECORD; Start 05/14/17 at 09:30 Apixaban (Eliquis) 5 mg BID PO Last administered on 05/14/17at 21:30; Start at 09:30 Oseltamivir Phosphate (Tamiflu) 75 mg BID PO Last administered on 05/14/17at 21: 30; Start 05/14/17 at 21:00; Stop 05/19/17 at 20:59 Metoprolol Tartrate (Lopressor) 25 mg Q6HRS PO Last administered on 05/15/17at 05:50; Start 05/14/17 at 18:00 Active Scripts Active Reported Multivitamins (Multivitamin) 1 Each Tablet 1 Tab PO DAILY Miralax (Polyethylene Glycol 3350) 17 Gm Powd.pack 1 Packet PO DAILY PRN Roxicodone (Oxycodone HCl) 5 Mg Tablet 5 Mg PO PRN Q4HRS PRN Hyzaar 100-25 Tablet (Losartan/Hydrochlorothiazide) 1 Each Tablet 1 Tab PO DAILY Ativan (Lorazepam) 0.5 Mg Tablet 0.5 Mg PO PRN QHS PRN Levothyroxine Sodium 100 Mcg Tablet 1 Tab PO DAILYAC Lotrisone Cream (Clotrimazole/Betamethasone Dip) 15 Gm Cream..g. 1 Jaden TP BID Temovate (Clobetasol Propionate) 15 Gm Oint...g. 1 Jaden TP BID Tylenol (Acetaminophen) 325 Mg Tablet 2 Tab PO PRN Q6HRS PRN Metoprolol Succinate ( Xl ) (Metoprolol Succinate) 25 Mg Tab.er.24h 1 Tab PO DAILY Vitamin D (Cholecalciferol (Vitamin D3)) 1,000 Unit Capsule 1 Cap PO HS Aspir 81 (Aspirin) 81 Mg Tablet.dr 1 Tab PO HS Fish Oil (Inlet-3 Fatty Acids) 300 Mg Capsule 300 Mg PO BID Vitals/I & O Vital Sign - Last 24 Hours 05/14/17 05/14/17 05/14/17 05/14/17 08:00 09:45 09:45 11:14 Temp 101.1 Pulse 151 151 90 Resp 20 B/P (MAP) 169/81 169/81 100/66 (77) Pulse Ox 97 O2 Delivery Room Air Room Air 05/14/17 05/14/17 05/14/17 05/14/17 15:05 18:00 19:20 19:57 Temp 99.0 100.3 Pulse 89 90 99 Resp 24 18 B/P (MAP) 89/56 (67) 127/86 92/60 (71) Pulse Ox 93 96 O2 Delivery Room Air Room Air 05/14/17 05/14/17 05/15/17 05/15/17 23:49 23:53 05:50 05:54 Temp 98.8 101.1 Pulse 120 120 96 96 Resp 18 18 B/P (MAP) 116/76 116/76 (89) 109/62 109/62 (78) Pulse Ox 96 91 O2 Delivery BiPAP/CPAP BiPAP/CPAP Intake and Output 05/14/17 05/14/17 05/15/17 15:00 23:00 07:00 Intake Total 480 ml 1726.29 ml 1017.38 ml Output Total 400 ml 2 ml 1 ml Balance 80 ml 1724.29 ml 1016.38 ml NELIDA BYNUM MD May 15, 2017 07:37
[2017-05-15] MEDS: OMEGA-3 FATTY ACIDS/FISH OIL 1,000 MG CAPSULE. PO SCH ×2 (08:48→19:47)
[2017-05-15] MEDS: CLOBETASOL EMOLLIENT 0.05% TOPICAL CREAM 15GM TUBE. TP SCH ×2 (08:48→21:00)
[2017-05-15] MEDS: CLOTRIMAZOLE/BETAMETH 1%-0.05% TOPICAL CREAM 15GM TUBE. TP SCH ×2 (08:48→21:00)
[2017-05-15] MEDS: LOSARTAN 50 MG TABLET. PO SCH (08:49)
[2017-05-15] MEDS: APIXABAN 5 MG TABLET. PO SCH ×2 (08:49→19:46)
[2017-05-15] MEDS: OSELTAMIVIR 75 MG CAPSULE PO SCH ×2 (08:49→19:46)
[2017-05-15] MEDS: MULTIVITAMIN with MINERAL TABLET. PO SCH (08:49)
[2017-05-15 10:08] LABS: BASO % 1 % (0-3); EOS % 0 % (0-3); HEMATOCRIT 33.6 % (36.0-47.0); HEMOGLOBIN 11.6 g/dL (12.0-15.5); LYMPH # 0.7 x10^3/uL (1.0-4.8); LYMPH % 15 % (24-48); MEAN CORPUSCULAR HEMOGLOBIN 31 pg (25-35); MEAN CORPUSCULAR HGB CONC 35 g/dL (31-37); MEAN CORPUSCULAR VOLUME 90 fL (79-100); MONO # 0.1 x10^3/uL (0.0-1.1); MONO % 1 % (0-9); NEUT # 3.8 x10^3uL (1.8-7.7); NEUT % 83 % (31-73); PLATELET COUNT 93 x10^3/uL (140-400); RED BLOOD COUNT 3.75 x10^6/uL (3.50-5.40); RED CELL DISTRIBUTION WIDTH 13.4 % (11.5-14.5); WHITE BLOOD COUNT 4.6 x10^3/uL (4.0-11.0)
[2017-05-15 10:29] LABS: ALBUMIN 2.1 g/dL (3.4-5.0); ALBUMIN/GLOBULIN RATIO 0.6 (1.0-1.7); CALCIUM 7.8 mg/dL (8.5-10.1); CREATININE 1.7 mg/dL (0.6-1.0); GFR 34.8; PLT ESTIMATE DECREASED (ADEQUATE); POTASSIUM 3.5 mmol/L (3.5-5.1); TOTAL BILIRUBIN 0.6 mg/dL (0.2-1.0); TOTAL PROTEIN 5.7 g/dL (6.4-8.2)
[2017-05-15 10:30] LABS: TOXIC VACUOLATION SLIGHT
[2017-05-15 10:31] LABS: OVALOCYTES OCC; POLYCHROMASIA SLIGHT
[2017-05-15] MEDS ORDERED: PIP/TAZO PER PHARMACY MC PRN (11:15)
[2017-05-15] MEDS ORDERED: VANCOMYCIN PER PHARMACY MC PRN (11:15)
[2017-05-15] MEDS: PIPERACILLIN/TAZOBACTAM 3.375 GM in IV NORMAL SALINE 50ML 50 ML IV SCH ×3 (12:23→23:44)
[2017-05-15] MEDS: oxyCODONE IR 5 MG TABLET PO PRN (12:24)
[2017-05-15] MEDS ORDERED: VANCOMYCIN 2 GM in IV NORMAL SALINE 500ML 500 ML IV ONE (12:30)
--- NOTE | 2017-05-15 12:52 | CARD ---
MR#: [id number] Date of Study: 05/14/2017 Ordering Physician: ELISSA CHAHAL, Referring Physician: MEL TARANGO Tech: JANAY Eugene APPROVED REPORT EXAM: Two-dimensional and M-mode echocardiogram with Doppler and color Doppler. Other Information Quality : PoorHR: 93bpm Technically limited study due to body habitus. Patient had very bad leg pain and couldn't stop maritza vering. INDICATION Atrial Fibrillation RISK FACTORS Obesity 2D DIMENSIONS Left Atrium(2D)3.3 (1.6-4.0cm)IVSd1.2 (0.7-1.1cm) Aortic Root(2D)2.6 (2.0-3.7cm)LVDd4.4 (3.9-5.9cm) LVOT Diameter2.0 (1.8-2.4cm)PWd1.2 (0.7-1.1cm) LVDs3.2 (2.5-4.0cm)FS (%) 27.2 % SV45.4 mlLVEF(%)53.2 (>50%) Aortic Valve AoV Peak Jonel.188.1cm/sAoV VTI34.5cm AO Peak GR.14.2mmHgLVOT Peak Jonel.108.1cm/s LVOT VTI 19.84cmAO Mean GR.9mmHg RISSA (VMAX)1.05kl0BPS (VTI)1.73cm2 Mitral Valve MV E Sjrcdrsk034.8cm/sMV DECEL [id number] MV A Uigmtypb15.8cm/sE/A Ratio3.5 Tricuspid Valve TR P. [id number]/sTR Peak Gr.22mmHg LEFT VENTRICLE The left ventricle is normal size. There is mild concentric left ventricular hypertrophy. The left ve ntricular systolic function is normal and the ejection fraction is within normal range. EF 65% There is normal LV segmental wall motion. The left ventricular diastolic function and filling is normal for age. RIGHT VENTRICLE The right ventricle is normal size. The right ventricular systolic function is normal. ATRIA The left atrium size is normal. The right atrium size is normal. The interatrial septum is intact wit h no evidence for an atrial septal defect or patent foramen ovale as noted on 2-D or Doppler imaging. AORTIC VALVE The aortic valve is not well visualized. It is possible the aortic valve is mildly sclerotic. Doppler and Color Flow revealed no significant aortic regurgitation. Hemodynamically significant valvular ao rtic stenosis cannot be excluded but grossly no evidence of stenosis. There is no aortic valvular veg etation. MITRAL VALVE The mitral valve is thickened but opens well. There is no evidence of mitral valve prolapse. There is no mitral valve stenosis. Doppler and Color-flow revealed trace mitral regurgitation. TRICUSPID VALVE The tricuspid valve is normal in structure and function. Doppler and Color Flow revealed trace to mil d tricuspid regurgitation. There is no tricuspid valve prolapse or vegetation. There is no tricuspid valve stenosis. PULMONIC VALVE The pulmonic valve is not well visualized. Doppler and Color Flow revealed no pulmonic valvular regur gitation. There is no pulmonic valvular stenosis. GREAT VESSELS The aortic root is normal in size. The IVC is normal in size and collapses >50% with inspiration. PERICARDIAL EFFUSION There is no pleural effusion. There is no evidence of significant pericardial effusion. Critical Notification Critical Value: No <Conclusion> There is mild concentric left ventricular hypertrophy. The left ventricular systolic function is normal and the ejection fraction is within normal range. EF 65% There is normal LV segmental wall motion. Signed by : Robby Hendricks, Electronically Approved : 05/15/2017 12:51:47
[2017-05-15] MEDS ORDERED: IV NORMAL SALINE 1,000ML 1,000 ML IV SCH (15:14)
[2017-05-15] MEDS ORDERED: IV NORMAL SALINE 500ML 500 ML IV PRN (15:15)
[2017-05-15 15:18] LABS: CALCIUM 7.6 mg/dL (8.5-10.1); CREATININE 1.8 mg/dL (0.6-1.0); GFR 32.6; POTASSIUM 3.6 mmol/L (3.5-5.1)
[2017-05-15] MEDS ORDERED: NOREPINEPHRINE BITARTRATE 16 MG in IV NORMAL SALINE 250ML 250 ML IV PRN (15:30)
[2017-05-15] MEDS: CHOLECALCIFEROL (VITAMIN D3) 1,000 UNIT TABLET PO SCH (19:46)
[2017-05-15] MEDS: ASPIRIN ENTERIC COATED 81 MG TABLET.DR. PO SCH (19:46)
[2017-05-15] MEDS ORDERED: ACETAMINOPHEN 325 MG TABLET PO ONE (21:45)
[2017-05-15] MEDS ORDERED: IBUPROFEN 600 MG TABLET. PO PRN (21:45)
[2017-05-15] MEDS ORDERED: ACETAMINOPHEN 500 MG TABLET PO PRN (21:45)
[2017-05-16] VITALS (12 sets, daily range): BP systolic 80–111; BP diastolic 51–71
[2017-05-16] MEDS: IV NORMAL SALINE 1,000ML 1,000 ML IV SCH ×2 (05:23→11:48)
[2017-05-16] MEDS: PIPERACILLIN/TAZOBACTAM 3.375 GM in IV NORMAL SALINE 50ML 50 ML IV SCH (05:23)
[2017-05-16] MEDS ORDERED: LEVOTHYROXINE 88 MCG TABLET PO SCH (07:30)
[2017-05-16 07:37] LABS: BASO % 0 % (0-3); EOS % 0 % (0-3); HEMOGLOBIN 10.8 g/dL (12.0-15.5); LYMPH # 0.4 x10^3/uL (1.0-4.8); LYMPH % 13 % (24-48); MEAN CORPUSCULAR HEMOGLOBIN 31 pg (25-35); MEAN CORPUSCULAR HGB CONC 35 g/dL (31-37); MEAN CORPUSCULAR VOLUME 90 fL (79-100); MONO % 1 % (0-9); NEUT # 2.5 x10^3uL (1.8-7.7); NEUT % 85 % (31-73); PLATELET COUNT 85 x10^3/uL (140-400); RED BLOOD COUNT 3.46 x10^6/uL (3.50-5.40); RED CELL DISTRIBUTION WIDTH 13.6 % (11.5-14.5); WHITE BLOOD COUNT 2.9 x10^3/uL (4.0-11.0)
[2017-05-16 08:28] LABS: ALBUMIN 1.9 g/dL (3.4-5.0); ALBUMIN/GLOBULIN RATIO 0.6 (1.0-1.7); CALCIUM 7.3 mg/dL (8.5-10.1); CREATININE 1.7 mg/dL (0.6-1.0); GFR 34.8; POTASSIUM 3.4 mmol/L (3.5-5.1); TOTAL BILIRUBIN 0.7 mg/dL (0.2-1.0); TOTAL PROTEIN 5.1 g/dL (6.4-8.2)
[2017-05-16] MEDS: CLOBETASOL EMOLLIENT 0.05% TOPICAL CREAM 15GM TUBE. TP SCH (09:00)
[2017-05-16] MEDS ORDERED: LOSARTAN 50 MG TABLET. PO SCH (09:00)
[2017-05-16] MEDS: CLOTRIMAZOLE/BETAMETH 1%-0.05% TOPICAL CREAM 15GM TUBE. TP SCH (09:00)
[2017-05-16] MEDS: OMEGA-3 FATTY ACIDS/FISH OIL 1,000 MG CAPSULE. PO SCH (09:16)
[2017-05-16] MEDS: OSELTAMIVIR 75 MG CAPSULE PO SCH (09:16)
[2017-05-16] MEDS: MULTIVITAMIN with MINERAL TABLET. PO SCH (09:16)
[2017-05-16] MEDS: APIXABAN 5 MG TABLET. PO SCH (09:16)
[2017-05-16] MEDS ORDERED: POTASSIUM CHLORIDE 20 MEQ/15 ML ORAL LIQUID. PO SCH (09:30)
--- NOTE | 2017-05-16 10:36 | DISCH ---
DISCHARGE INSTRUCTIONS-DC Condition on Discharge Condition on Discharge: Guarded Problems: Activity after Discharge Activity Instructions for Disc: Bedrest today Diet after Discharge Diet after Discharge: Cardiac Follow-Up Follow up with: PCP after discharge NELIDA BYNUM MD May 16, 2017 10:36
--- NOTE | 2017-05-16 10:46 | PDOC3 ---
Discharge Summary Discharge Summary Date of Admission Date of Admission: May 13, 2017 at 17:06 Admitting Diagnosis Weakness Presumed influenza Fever Metastatic melanoma Date of Discharge: May 16, 2017 Discharge Diagnosis Rhabdomyolysis (etiology unclear, presumed to be 2nd to influenza) Pancytopenia Atrial fibrillation, new onset Acute on chronic renal failure Hypokalemia Sepsis syndrome with negative cultures Metastatic melanoma Abnormal liver function tests Hypotension (no pressors required) Laboratory Findings Laboratory Tests Test 05/13/17 12:20 05/13/17 13:47 05/14/17 02:33 05/14/17 03:53 White Blood Count 4.1 x10^3/uL (4.0-11.0) 3.5 x10^3/uL (4.0-11.0) Red Blood Count 3.94 x10^6/uL (3.50-5.40) 3.67 x10^6/uL (3.50-5.40) Hemoglobin 12.3 g/dL (12.0-15.5) 11.5 g/dL (12.0-15.5) Hematocrit 35.7 % (36.0-47.0) 33.2 % (36.0-47.0) Mean Corpuscular Volume 91 fL (79-100) 90 fL (79-100) Mean Corpuscular Hemoglobin 31 pg (25-35) 31 pg (25-35) Mean Corpuscular Hemoglobin Concent 34 g/dL (31-37) 35 g/dL (31-37) Red Cell Distribution Width 13.1 % (11.5-14.5) 13.2 % (11.5-14.5) Platelet Count 151 x10^3/uL (140-400) 127 x10^3/uL (140-400) Neutrophils (%) (Auto) 76 % (31-73) 87 % (31-73) Lymphocytes (%) (Auto) 21 % (24-48) 10 % (24-48) Monocytes (%) (Auto) 3 % (0-9) 3 % (0-9) Eosinophils (%) (Auto) 0 % (0-3) 0 % (0-3) Basophils (%) (Auto) 1 % (0-3) 1 % (0-3) Neutrophils # (Auto) 3.1 x10^3uL (1.8-7.7) 3.1 x10^3uL (1.8-7.7) Lymphocytes # (Auto) 0.9 x10^3/uL (1.0-4.8) 0.3 x10^3/uL (1.0-4.8) Monocytes # (Auto) 0.1 x10^3/uL (0.0-1.1) 0.1 x10^3/uL (0.0-1.1) Eosinophils # (Auto) 0.0 x10^3/uL (0.0-0.7) 0.0 x10^3/uL (0.0-0.7) Basophils # (Auto) 0.0 x10^3/uL (0.0-0.2) 0.0 x10^3/uL (0.0-0.2) Sodium Level 128 mmol/L (136-145) 128 mmol/L (136-145) Potassium Level 3.9 mmol/L (3.5-5.1) 3.7 mmol/L (3.5-5.1) Chloride Level 93 mmol/L (98-107) 95 mmol/L (98-107) Carbon Dioxide Level 25 mmol/L (21-32) 24 mmol/L (21-32) Anion Gap 10 (6-14) 9 (6-14) Blood Urea Nitrogen 22 mg/dL (7-20) 19 mg/dL (7-20) Creatinine 1.3 mg/dL (0.6-1.0) 1.3 mg/dL (0.6-1.0) Estimated GFR (Cockcroft-Gault) 47.5 47.5 BUN/Creatinine Ratio 17 (6-20) 15 (6-20) Glucose Level 117 mg/dL (70-99) 127 mg/dL (70-99) Calcium Level 8.7 mg/dL (8.5-10.1) 8.3 mg/dL (8.5-10.1) Total Bilirubin 0.4 mg/dL (0.2-1.0) 0.5 mg/dL (0.2-1.0) Aspartate Amino Transf (AST/SGOT) 61 U/L (15-37) 82 U/L (15-37) Alanine Aminotransferase (ALT/SGPT) 38 U/L (14-59) 42 U/L (14-59) Alkaline Phosphatase 94 U/L (46-116) 90 U/L (46-116) Creatine Kinase 643 U/L (26-192) Troponin I Quantitative 0.040 ng/mL (0-0.055) IU-Gzz-B-Type Natriuretic Peptide 132 pg/mL (0-449) Total Protein 6.9 g/dL (6.4-8.2) 6.3 g/dL (6.4-8.2) Albumin 2.7 g/dL (3.4-5.0) 2.4 g/dL (3.4-5.0) Albumin/Globulin Ratio 0.6 (1.0-1.7) 0.6 (1.0-1.7) Urine Collection Type Unknown Urine Color Nesha Urine Clarity Hazy Urine pH 5.5 Urine Specific Romayor 1.020 Urine Protein Trace (NEG-TRACE) Urine Glucose (UA) Neg mg/dL (NEG) Urine Ketones (Stick) Trace mg/dL (NEG) Urine Blood Neg (NEG) Urine Nitrite Neg (NEG) Urine Bilirubin Neg (NEG) Urine Urobilinogen Dipstick 1 mg/dL (0.2 mg/dL) Urine Leukocyte Esterase Neg (NEG) Urine RBC 1-2 /HPF (0-2) Urine WBC 1-4 /HPF (0-4) Urine Squamous Epithelial Cells Mod /LPF Urine Bacteria Few /HPF (0-FEW) Urine Mucus Mod /LPF Influenza Type A (Rapid) Negative (NEGATIVE) Influenza Type B (Rapid) Negative (NEGATIVE) Segmented Neutrophils % 52 % (35-66) Band Neutrophils % 35 % (0-9) Lymphocytes % 9 % (24-48) Monocytes % 3 % (0-10) Metamyelocytes % 1 % (0-0) Toxic Granulation Mod Toxic Vacuolation Mod Dohle Bodies Few Platelet Estimate Adequate (ADEQUATE) Platelet Clumps, EDTA Present Large Platelets Occ Giant Platelets Occ Polychromasia Slight Hypochromasia Slight Anisocytosis Slight Ovalocytes Occ Lactic Acid Level 0.7 mmol/L (0.4-2.0) Magnesium Level 1.6 mg/dL (1.8-2.4) Test 05/14/17 05:43 05/14/17 06:45 05/15/17 09:55 05/15/17 14:50 Group A Streptococcus Rapid Negative (NEGATIVE) Creatine Kinase 1310 U/L (26-192) 2643 U/L (26-192) 2891 U/L (26-192) Creatine Kinase MB (Mass) 2.2 ng/mL (0.0-3.6) Creatine Kinase MB Relative Index 0.2 % (0-4) Bedside Troponin I 0.08 ng/ml (<0.08) Triglycerides Level 100 mg/dL (0-150) Cholesterol Level 128 mg/dL (0-200) LDL Cholesterol, Calculated 68 mg/dL (0-100) VLDL Cholesterol, Calculated 20 mg/dL (0-40) Non-HDL Cholesterol Calculated 88 mg/dL (0-129) HDL Cholesterol 40 mg/dL (40-60) Cholesterol/HDL Ratio 3.0 Thyroid Stimulating Hormone (TSH) 0.143 uIU/mL (0.358-3.740) White Blood Count 4.6 x10^3/uL (4.0-11.0) Red Blood Count 3.75 x10^6/uL (3.50-5.40) Hemoglobin 11.6 g/dL (12.0-15.5) Hematocrit 33.6 % (36.0-47.0) Mean Corpuscular Volume 90 fL (79-100) Mean Corpuscular Hemoglobin 31 pg (25-35) Mean Corpuscular Hemoglobin Concent 35 g/dL (31-37) Red Cell Distribution Width 13.4 % (11.5-14.5) Platelet Count 93 x10^3/uL (140-400) Neutrophils (%) (Auto) 83 % (31-73) Lymphocytes (%) (Auto) 15 % (24-48) Monocytes (%) (Auto) 1 % (0-9) Eosinophils (%) (Auto) 0 % (0-3) Basophils (%) (Auto) 1 % (0-3) Neutrophils # (Auto) 3.8 x10^3uL (1.8-7.7) Lymphocytes # (Auto) 0.7 x10^3/uL (1.0-4.8) Monocytes # (Auto) 0.1 x10^3/uL (0.0-1.1) Eosinophils # (Auto) 0.0 x10^3/uL (0.0-0.7) Basophils # (Auto) 0.0 x10^3/uL (0.0-0.2) Toxic Vacuolation Slight Dohle Bodies Present Platelet Estimate Decreased (ADEQUATE) Large Platelets Occ Polychromasia Slight Ovalocytes Occ Sodium Level 130 mmol/L (136-145) 129 mmol/L (136-145) Potassium Level 3.5 mmol/L (3.5-5.1) 3.6 mmol/L (3.5-5.1) Chloride Level 98 mmol/L (98-107) 98 mmol/L (98-107) Carbon Dioxide Level 20 mmol/L (21-32) 20 mmol/L (21-32) Anion Gap 12 (6-14) 11 (6-14) Blood Urea Nitrogen 26 mg/dL (7-20) 29 mg/dL (7-20) Creatinine 1.7 mg/dL (0.6-1.0) 1.8 mg/dL (0.6-1.0) Estimated GFR (Cockcroft-Gault) 34.8 32.6 BUN/Creatinine Ratio 15 (6-20) Glucose Level 126 mg/dL (70-99) 137 mg/dL (70-99) Calcium Level 7.8 mg/dL (8.5-10.1) 7.6 mg/dL (8.5-10.1) Total Bilirubin 0.6 mg/dL (0.2-1.0) Aspartate Amino Transf (AST/SGOT) 210 U/L (15-37) Alanine Aminotransferase (ALT/SGPT) 64 U/L (14-59) Alkaline Phosphatase 110 U/L (46-116) Total Protein 5.7 g/dL (6.4-8.2) Albumin 2.1 g/dL (3.4-5.0) Albumin/Globulin Ratio 0.6 (1.0-1.7) Lactic Acid Level 1.3 mmol/L (0.4-2.0) Test 05/16/17 07:25 White Blood Count 2.9 x10^3/uL (4.0-11.0) Red Blood Count 3.46 x10^6/uL (3.50-5.40) Hemoglobin 10.8 g/dL (12.0-15.5) Hematocrit 31.0 % (36.0-47.0) Mean Corpuscular Volume 90 fL (79-100) Mean Corpuscular Hemoglobin 31 pg (25-35) Mean Corpuscular Hemoglobin Concent 35 g/dL (31-37) Red Cell Distribution Width 13.6 % (11.5-14.5) Platelet Count 85 x10^3/uL (140-400) Neutrophils (%) (Auto) 85 % (31-73) Lymphocytes (%) (Auto) 13 % (24-48) Monocytes (%) (Auto) 1 % (0-9) Eosinophils (%) (Auto) 0 % (0-3) Basophils (%) (Auto) 0 % (0-3) Neutrophils # (Auto) 2.5 x10^3uL (1.8-7.7) Lymphocytes # (Auto) 0.4 x10^3/uL (1.0-4.8) Monocytes # (Auto) 0.0 x10^3/uL (0.0-1.1) Eosinophils # (Auto) 0.0 x10^3/uL (0.0-0.7) Basophils # (Auto) 0.0 x10^3/uL (0.0-0.2) Sodium Level 133 mmol/L (136-145) Potassium Level 3.4 mmol/L (3.5-5.1) Chloride Level 103 mmol/L (98-107) Carbon Dioxide Level 18 mmol/L (21-32) Anion Gap 12 (6-14) Blood Urea Nitrogen 30 mg/dL (7-20) Creatinine 1.7 mg/dL (0.6-1.0) Estimated GFR (Cockcroft-Gault) 34.8 BUN/Creatinine Ratio 18 (6-20) Glucose Level 93 mg/dL (70-99) Calcium Level 7.3 mg/dL (8.5-10.1) Total Bilirubin 0.7 mg/dL (0.2-1.0) Aspartate Amino Transf (AST/SGOT) 289 U/L (15-37) Alanine Aminotransferase (ALT/SGPT) 75 U/L (14-59) Alkaline Phosphatase 99 U/L (46-116) Creatine Kinase 3233 U/L (26-192) Total Protein 5.1 g/dL (6.4-8.2) Albumin 1.9 g/dL (3.4-5.0) Albumin/Globulin Ratio 0.6 (1.0-1.7) Hospital Course Pt states she had been feeling progressively weaker since restarting her new chemo medication for metastatic melanoma. Says she felt the same way when she first started on it, and they stopped it and she got better. This time they tried a lower dose. Pt developed a high fever not long after admission but has tested negative for the flu. Respiratory viral panel is pending, but pt has been treated presumptively for the flu with Tamiflu. She was admitted on 05/13 mid-day, and since that time her CK level, transaminases, and creatinine have steadily worsened. She developed new onset afib while here as well and was started on diltiazem which did help control her rate. She was started on Eliquis due to high risk of stroke. Today she is pancytopenic with a platelet count of 85, WBC of 2.7, and low but stable hemoglobin. Transaminases have risen slowly but steadily. Creat is stable at 1.7 today, was 1.8 yesterday. Pt has had more than 1 liter urine output since yesterday afternoon, though total fluid balance is + 2 liters. CK level at 3300, worse than yesterday. Pt is not requiring O2 and in general appears slightly improved since yesterday. She was started on Vanc and Zosyn yesterday as 03/25 blood cultures came back positive for staph, but the result this morning is coag neg staph, a likely contaminant, so Vanc was stopped. We have had to hold her losartan and metoprolol as her BP was as low as 60/40 yesterday. She has stayed above a MAP of 65 since then with IVF only. Chavez cath is in place to accurately monitor her urine output. Pt and her are agreeable to transfer to for further evaluation by specialty care not available in this hospital. Pt is considered stable for transport, will go by EMS. Dr. Andrade is the accepting physician. Condition at Discharge: Guarded Home Meds Reported Medications Multivitamin (MULTIVITAMINS) 1 Each Tablet, 1 TAB PO DAILY, #90 TAB 3 Refills 05/13/17 Polyethylene Glycol 3350 (MIRALAX) 17 Gm Powd.pack, 1 PACKET PO DAILY Y for CONSTIPATION, #30 PACKET 3 Refills 05/13/17 Oxycodone HCl (Roxicodone) 5 Mg Tablet, 5 MG PO PRN Q4HRS Y for PAIN, TAB 05/13/17 Losartan/Hydrochlorothiazide (HYZAAR 100-25 TABLET) 1 Each Tablet, 1 TAB PO DAILY, #30 TAB 5 Refills 05/13/17 Lorazepam (ATIVAN) 0.5 Mg Tablet, 0.5 MG PO PRN QHS Y for ANXIETY / AGITATION, TAB 05/13/17 Levothyroxine Sodium (LEVOTHYROXINE SODIUM) 100 Mcg Tablet, 1 TAB PO DAILYAC, # 30 TAB 5 Refills 05/13/17 Clotrimazole/Betamethasone Dip (LOTRISONE CREAM) 15 Gm Cream..g., 1 JADEN TP BID, #45 GM 05/13/17 Clobetasol Propionate (TEMOVATE) 15 Gm Oint...g., 1 JADEN TP BID, #60 GM 3 Refills 05/13/17 Acetaminophen (TYLENOL) 325 Mg Tablet, 2 TAB PO PRN Q6HRS Y for PAIN, #60 TAB 2 Refills 05/13/17 Metoprolol Succinate (METOPROLOL SUCCINATE ( XL )) 25 Mg Tab.er.24h, 1 TAB PO DAILY, #30 TAB 5 Refills 10/14/15 Cholecalciferol (Vitamin D3) (VITAMIN D) 1,000 Unit Capsule, 1 CAP PO HS, #30 CAP 3 Refills 10/24/14 Aspirin (ASPIR 81) 81 Mg Tablet.dr, 1 TAB PO HS, #30 TAB 5 Refills 04/02/14 Earth-3 Fatty Acids (FISH OIL) 300 Mg Capsule, 300 MG PO BID 04/02/14 Discontinued Reported Medications Hydrocodone Bit/Acetaminophen (HYDROCODONE-APAP 10325 ) 1 Each Tablet, 1 TAB PO PRN Q6HRS Y for PAIN, TAB 0 Refills 10/14/15 Inpatient Meds Current Medications Hydromorphone HCl (Dilaudid) 0.5 mg 1X ONCE IV Last administered on 05/13/17at 12:21; Start 05/13/17 at 12:15; Stop 05/13/17 at 12:16; Status DC Sodium Chloride 1,000 ml @ 1,000 mls/hr Q1H IV Last administered on 05/13/17at 14:41; Start 05/13/17 at 14:41; Stop 05/13/17 at 15:41; Status DC Morphine Sulfate (Morphine 4mg Syringe) 4 mg PRN Q2HR PRN IV PAIN; Start at 16:15; Stop 05/14/17 at 16:14; Status DC Sodium Chloride 1,000 ml @ 200 mls/hr Q5H IV Last administered on 05/13/17at 19 :02; Start 05/13/17 at 16:02; Stop 05/13/17 at 21:01; Status DC Acetaminophen (Tylenol) 650 mg PRN Q6HRS PRN PO PAIN Last administered on 19:46; Start 05/13/17 at 18:30; Stop 05/15/17 at 21:36; Status DC Aspirin (Aspirin Enteric Coated) 81 mg HS PO Last administered on 05/15/17at 19: 46; Start 05/13/17 at 21:00 Betamethasone/ Clotrimazole (Lotrisone) 1 jaden BID TP Last administered on at 21:00; Start 05/13/17 at 21:00 Levothyroxine Sodium (Synthroid) 100 mcg DAILYAC PO Last administered on at 05:50; Start 05/14/17 at 07:30; Stop 05/15/17 at 07:34; Status DC Lorazepam (Ativan) 0.5 mg PRN QHS PRN PO ANXIETY / AGITATION Last administered on 05/14/17at 21:31; Start 05/13/17 at 18:30 Metoprolol Succinate (Toprol Xl) 25 mg DAILY PO ; Start 05/14/17 at 09:00; Stop 05/14/17 at 09:21; Status DC Oxycodone HCl (Roxicodone) 5 mg PRN Q4HRS PRN PO PAIN Last administered on 05/15at 12:24; Start 05/13/17 at 18:30 Polyethylene Glycol (miraLAX) 17 gm PRN DAILY PRN PO CONSTIPATION; Start at 18:30 Vitamin D (Vitamin D3) 1,000 unit QHS PO Last administered on 05/15/17at 19:46; Start 05/14/17 at 09:00 Clobetasol Propionate 1 jaden BID TP Last administered on 05/15/17at 21:00; Start 05/13/17 at 21:00 Losartan Potassium (Cozaar) 100 mg DAILY PO Last administered on 05/15/17at 08: 49; Start 05/14/17 at 09:00; Stop 05/15/17 at 11:08; Status DC Multivitamins/ Calcium (Thera-M Plus) 1 tab DAILY PO Last administered on 09:16; Start 05/14/17 at 09:00 Fish Oil (Fish Oil) 1,000 mg BID PO Last administered on 05/16/17 09:16; Start 05/14/17 at 09:00 Hydrochlorothiazide (Hydrodiuril) 25 mg DAILY PO ; Start 05/14/17 at 09:00; Stop 05/14/17 at 09:24; Status DC Sodium Chloride 1,000 ml @ 200 mls/hr Q5H IV Last administered on 05/16/17at 05 :23; Start 05/14/17 at 06:00 Oseltamivir Phosphate (Tamiflu) 75 mg DAILY PO Last administered on 05/14/17at 09:45; Start 05/14/17 at 09:00; Stop 05/14/17 at 09:53; Status DC Metoprolol Succinate (Toprol Xl) 50 mg DAILY PO Last administered on 05/14/17at 09:45; Start 05/14/17 at 09:30; Stop 05/14/17 at 16:14; Status DC Diltiazem HCl 100 mg/Dextrose 100 ml @ 0 mls/hr CONT PRN IV SEE I/O RECORD; Start 05/14/17 at 09:30 Apixaban (Eliquis) 5 mg BID PO Last administered on 05/16/17at 09:16; Start at 09:30 Oseltamivir Phosphate (Tamiflu) 75 mg BID PO Last administered on 05/16/17 09: 16; Start 05/14/17 at 21:00; Stop 05/19/17 at 20:59 Metoprolol Tartrate (Lopressor) 25 mg Q6HRS PO Last administered on 05/15/17at 12:25; Start 05/14/17 at 18:00; Stop 05/15/17 at 15:16; Status DC Levothyroxine Sodium (Synthroid) 88 mcg DAILYAC PO Last administered on at 07:54; Start 05/16/17 at 07:30 Vancomycin HCl (Vanco Per Pharmacy) 1 each PRN DAILY PRN MC SEE COMMENTS Last administered on 05/15/17at 12:42; Start 05/15/17 at 11:15; Stop 05/16/17 at 09:23 ; Status DC Losartan Potassium (Cozaar) 50 mg DAILY PO ; Start 05/16/17 at 09:00; Stop 05/16 at 09:00; Status DC Piperacillin Sod/ Tazobactam Sod (Zosyn Per Pharmacy) 1 each PRN DAILY PRN MC SEE COMMENTS; Start 05/15/17 at 11:15 Piperacillin Sod/ Tazobactam Sod 3.375 gm/Sodium Chloride 50 ml @ 100 mls/hr Q6HRS IV Last administered on 05/16/17at 05:23; Start 05/15/17 at 12:00 Vancomycin HCl 2 gm/Sodium Chloride 500 ml @ 250 mls/hr 1X ONCE IV Last administered on 05/15/17at 12:24; Start 05/15/17 at 12:30; Stop 05/16/17 at 09:23 ; Status DC Vancomycin HCl 1.5 gm/Sodium Chloride 500 ml @ 250 mls/hr Q24H IV ; Start 05/16 at 12:30; Stop 05/16/17 at 12:30; Status DC Vancomycin HCl (Vancomycin Trough Level) 1 each 1X ONCE MC ; Start 05/17/17 at 12:00; Stop 05/17/17 at 12:00; Status DC Sodium Chloride 1,500 ml @ 1,500 mls/hr Q1H IV Last administered on 05/15/17at 16:19; Start 05/15/17 at 15:14; Stop 05/15/17 at 16:13; Status DC Sodium Chloride 500 ml @ 1,000 mls/hr PRN Q30MIN PRN IV SEE COMMENTS; Start at 15:15 Norepinephrine Bitartrate 16 mg/ Sodium Chloride 266 ml @ 0.99 mls/hr CONT PRN IV SEE I/O RECORD; Start 05/15/17 at 15:30 Acetaminophen (Tylenol) 325 mg 1X ONCE PO Last administered on 05/15/17at 21:53 ; Start 2/24/18 at 21:45; Stop 05/15/17 at 21:51; Status DC Acetaminophen (Tylenol) 1,000 mg PRN Q6HRS PRN PO FEVER; Start 05/15/17 at 21: 45 Ibuprofen (Motrin) 600 mg PRN Q8HRS PRN PO INFLAMMATION Last administered on at 21:53; Start 05/15/17 at 21:45 Potassium Chloride (KCl Oral Soln) 20 meq BID PO Last administered on at 10:29; Start 05/16/17 at 09:30 Active Scripts Active Reported Multivitamins (Multivitamin) 1 Each Tablet 1 Tab PO DAILY Miralax (Polyethylene Glycol 3350) 17 Gm Powd.pack 1 Packet PO DAILY PRN Roxicodone (Oxycodone HCl) 5 Mg Tablet 5 Mg PO PRN Q4HRS PRN Hyzaar 100-25 Tablet (Losartan/Hydrochlorothiazide) 1 Each Tablet 1 Tab PO DAILY Ativan (Lorazepam) 0.5 Mg Tablet 0.5 Mg PO PRN QHS PRN Levothyroxine Sodium 100 Mcg Tablet 1 Tab PO DAILYAC Lotrisone Cream (Clotrimazole/Betamethasone Dip) 15 Gm Cream..g. 1 Jaden TP BID Temovate (Clobetasol Propionate) 15 Gm Oint...g. 1 Jaden TP BID Tylenol (Acetaminophen) 325 Mg Tablet 2 Tab PO PRN Q6HRS PRN Metoprolol Succinate ( Xl ) (Metoprolol Succinate) 25 Mg Tab.er.24h 1 Tab PO DAILY Vitamin D (Cholecalciferol (Vitamin D3)) 1,000 Unit Capsule 1 Cap PO HS Aspir 81 (Aspirin) 81 Mg Tablet. 1 Tab PO HS Fish Oil (Earth-3 Fatty Acids) 300 Mg Capsule 300 Mg PO BID Activity: bed rest Diet: Cardiac Consulting Physician: PALMER NAVAS MD Consulting Speciality: Cardiac Follow-up Plan F/u with PCP after d/c from NELIDA BEEBE MD May 16, 2017 10:46
[2017-05-16] MEDS ORDERED: VANCOMYCIN 1.5 GM in IV NORMAL SALINE 500ML 500 ML IV SCH (12:30)
== END 2017-05-16 11:10 | disposition short-term general hospital (02) | DRG 682 ==
LOC: ER 11:28 → 1 SOUTH 17:06 → ICU 05-15 15:05
PROVIDERS: ADMIT Family Medicine; ATTEND Family Medicine
PROC: 5A09357 Assistance with Respiratory Ventilation, Less than 24 Consecutive Hours, Continuous Positive Airway Pressure (ICD-10-PCS; principal; 2017-05-13)
PROC: 5A09357 Assistance with Respiratory Ventilation, Less than 24 Consecutive Hours, Continuous Positive Airway Pressure (ICD-10-PCS; 2017-05-14)
PROC: 5A09357 Assistance with Respiratory Ventilation, Less than 24 Consecutive Hours, Continuous Positive Airway Pressure (ICD-10-PCS; 2017-05-15)
PROC: 5A09357 Assistance with Respiratory Ventilation, Less than 24 Consecutive Hours, Continuous Positive Airway Pressure (ICD-10-PCS; 2017-05-16)
DX: N17.9 Acute kidney failure, unspecified (principal); E43 Unspecified severe protein-calorie malnutrition; D61.818 Other pancytopenia; C79.9 Secondary malignant neoplasm of unspecified site; I95.9 Hypotension, unspecified; I48.0 Paroxysmal atrial fibrillation; E87.1 Hypo-osmolality and hyponatremia; E66.01 Morbid (severe) obesity due to excess calories; M62.82 Rhabdomyolysis; J10.1 Influenza due to other identified influenza virus with other respiratory manifestations; C43.9 Malignant melanoma of skin, unspecified; E86.0 Dehydration; F41.9 Anxiety disorder, unspecified; M19.90 Unspecified osteoarthritis, unspecified site; R94.5 Abnormal results of liver function studies; Z92.21 Personal history of antineoplastic chemotherapy; Z96.652 Presence of left artificial knee joint; M06.9 Rheumatoid arthritis, unspecified; E78.5 Hyperlipidemia, unspecified; E87.6 Hypokalemia; G47.33 Obstructive sleep apnea (adult) (pediatric); I12.9 Hypertensive chronic kidney disease with stage 1 through stage 4 chronic kidney disease, or unspecified chronic kidney disease; T50.995A Adverse effect of other drugs, medicaments and biological substances, initial encounter; K59.00 Constipation, unspecified; Z66 Do not resuscitate; E86.1 Hypovolemia; M46.90 Unspecified inflammatory spondylopathy, site unspecified; N18.2 Chronic kidney disease, stage 2 (mild); R94.6 Abnormal results of thyroid function studies; R74.0 Nonspecific elevation of levels of transaminase and lactic acid dehydrogenase [LDH]; Z79.01 Long term (current) use of anticoagulants; Z79.82 Long term (current) use of aspirin; Z79.899 Other long term (current) drug therapy; Z82.49 Family history of ischemic heart disease and other diseases of the circulatory system; Z83.3 Family history of diabetes mellitus; Z85.820 Personal history of malignant melanoma of skin; Z87.891 Personal history of nicotine dependence; Z90.49 Acquired absence of other specified parts of digestive tract; Y92.89 Other specified places as the place of occurrence of the external cause; Z68.38 Body mass index [BMI] 38.0-38.9, adult
CPT/HCPCS: 36415; 71045; 72100; 73521; 80048; 80053; 80061; 81001; 82550; 82553; 83605; 83735; 83880; 84443; 84484; 85007; 85025; 87040; 87070; 87205; 87804; 87880; 93005; 93306; 96361; 96374; J1170; J2543; J3370; J7040; 99285-25; J7030

== ENCOUNTER → 2017-06-09 | Outpatient (CLI) | payer MEDICARE, OTHER ==
[2017-05-16 12:00] VITALS: BP 97/69
[~2017-06-09] MED LIST changes: +ACET325T9 PO; +CLOB15OI3 TP; +CLOT15CR3 TP; +LEVO100T5 PO; +LORA0.5T96 PO; +LOSA1TAB12 PO; +MULT1TAB52 PO; +OXYC5TAB88 PO; +POLY17PO5 PO
--- NOTE | 2017-06-09 12:57 | RAD ---
EXAM: Left lower extremity venous Doppler sonogram. HISTORY: Swelling. TECHNIQUE: Mena scale and color Doppler sonographic evaluation of the left lower extremity veins with spectral waveform analysis was performed. FINDINGS: There is normal color flow, normal compressibility and there are normal spectral waveforms in the common femoral, superficial femoral, popliteal, posterior tibial and greater saphenous veins. IMPRESSION: No Doppler evidence of lower extremity deep venous thrombosis. Electronically signed by: Prachi Shelby MD (06/09/2017 12:55 PM) [place] [id number]
== END | disposition home or self-care (01) ==
LOC: US 12:07
PROVIDERS: ATTEND Family Medicine
DX: R60.0 Localized edema (principal)
CPT/HCPCS: 93971

== ENCOUNTER → 2017-07-29 | Outpatient (CLI) | payer MEDICARE, OTHER ==
[2017-05-16 12:00] VITALS: BP 97/69
[2017-07-29 15:25] LABS: BASO % 1 % (0-3); EOS # 0.8 x10^3/uL (0.0-0.7); EOS % 12 % (0-3); HEMATOCRIT 36.3 % (36.0-47.0); HEMOGLOBIN 12.2 g/dL (12.0-15.5); LYMPH # 1.8 x10^3/uL (1.0-4.8); LYMPH % 27 % (24-48); MEAN CORPUSCULAR HEMOGLOBIN 33 pg (25-35); MEAN CORPUSCULAR HGB CONC 34 g/dL (31-37); MEAN CORPUSCULAR VOLUME 97 fL (79-100); MONO # 0.2 x10^3/uL (0.0-1.1); MONO % 4 % (0-9); NEUT # 3.8 x10^3uL (1.8-7.7); NEUT % 57 % (31-73); PLATELET COUNT 214 x10^3/uL (140-400); RED BLOOD COUNT 3.76 x10^6/uL (3.50-5.40); RED CELL DISTRIBUTION WIDTH 16.1 % (11.5-14.5); WHITE BLOOD COUNT 6.8 x10^3/uL (4.0-11.0)
[2017-07-29 15:29] LABS: ALBUMIN 3.5 g/dL (3.4-5.0); CALCIUM 9.4 mg/dL (8.5-10.1); CREATININE 1.4 mg/dL (0.6-1.0); GFR 43.5; MAGNESIUM 1.8 mg/dL (1.8-2.4); PHOSPHORUS 3.3 mg/dL (2.6-4.7); POTASSIUM 4.1 mmol/L (3.5-5.1)
[2017-07-30 09:14] LABS: CALCIUM PTH 9.8 mg/dL (8.7-10.3); CREATININE PTH 1.23 mg/dL (0.57-1.00); PTH INTACT 65 pg/mL (15-65)
[2017-07-30 13:10] LABS: MICRO CREAT RATIO 40.4 mg/g creat (0.0-30.0); MICROALB RD UR 53.9 ug/mL (Not Estab.)
[2017-08-02 14:04] LABS: UR CREATININE RD 142.4
== END | disposition home or self-care (01) ==
LOC: LAB 14:07
PROVIDERS: ATTEND Internal Medicine Nephrology
DX: I12.9 Hypertensive chronic kidney disease with stage 1 through stage 4 chronic kidney disease, or unspecified chronic kidney disease (principal); N18.3 Chronic kidney disease, stage 3 (moderate); E21.3 Hyperparathyroidism, unspecified; E66.01 Morbid (severe) obesity due to excess calories; R60.9 Edema, unspecified; Z68.36 Body mass index [BMI] 36.0-36.9, adult
CPT/HCPCS: 36415; 80069; 82043; 82570; 83735; 83970; 84156; 85025

== ENCOUNTER → 2017-10-20 | Outpatient (CLI) | payer MEDICARE, OTHER ==
[2017-05-16 12:00] VITALS: BP 97/69
[2017-10-20 12:03] LABS: CALCIUM 9.5 mg/dL (8.5-10.1); CREATININE 1.2 mg/dL (0.6-1.0); GFR 51.9; POTASSIUM 4.2 mmol/L (3.5-5.1)
== END | disposition home or self-care (01) ==
LOC: LAB 11:28
PROVIDERS: ATTEND Internal Medicine Cardiovascular Disease
DX: I48.0 Paroxysmal atrial fibrillation (principal); E55.9 Vitamin D deficiency, unspecified; I12.9 Hypertensive chronic kidney disease with stage 1 through stage 4 chronic kidney disease, or unspecified chronic kidney disease; I13.0 Hypertensive heart and chronic kidney disease with heart failure and stage 1 through stage 4 chronic kidney disease, or unspecified chronic kidney disease; I50.9 Heart failure, unspecified; N18.3 Chronic kidney disease, stage 3 (moderate); I95.9 Hypotension, unspecified; E21.3 Hyperparathyroidism, unspecified; E87.6 Hypokalemia; E86.1 Hypovolemia; Z87.891 Personal history of nicotine dependence; Z85.820 Personal history of malignant melanoma of skin; Z92.21 Personal history of antineoplastic chemotherapy; Z96.652 Presence of left artificial knee joint; Z83.3 Family history of diabetes mellitus; Z82.49 Family history of ischemic heart disease and other diseases of the circulatory system
CPT/HCPCS: 36415; 80048

== ENCOUNTER 2018-03-17 12:46 | Emergency (ER) | payer MEDICARE, OTHER ==
[~2018-03-17] VITALS: Ht 167.6 cm; Wt 81.6 kg
[~2018-03-17 12:46] MED LIST changes: -AMLO5TAB2 PO; +AMLO5TAB7 PO; -HYDR-2766 PO; +HYDR-2769 PO; +LOSA25TA11 PO; -LOSA25TA4 PO; -LOSA50TA2 PO; +LOSA50TA86 PO
[2018-03-17] MEDS ORDERED: IV NORMAL SALINE 1,000ML 1,000 ML IV SCH (13:00)
--- NOTE | 2018-03-17 13:05 | PHYS DOC ---
Past History Past Medical History: A-Fib (paroxysmal, currently on Eliquis), Cancer, Hypertension, Other Additional Past Medical Histor: melanoma Past Surgical History: Appendectomy, Cancer Surgery, Knee Replacement, Other Alcohol Use: None Drug Use: None Adult General Chief Complaint Chief Complaint: ABDOMINAL PAIN HPI HPI Patient is an 82-year-old female who presents to the emergency department for evaluation. She states that for the past several days, she has felt generally weak. She states that anytime she tries to eat or drink, it will cause her to have some upper abdominal discomfort and stomach "upset", although she has not had any vomiting or diarrhea. She has not had any fevers or chills, nasal congestion, cough, headache, chest pain, or shortness of breath. She has not had any black or bloody stools. There are no alleviating or exacerbating factors to the patient's symptoms otherwise. Review of Systems Review of Systems Constitutional: Denies fever or Chills. Reports generalized weakness.[] Eyes: Denies change in visual acuity, redness, or eye pain [] HENT: Denies nasal congestion or sore throat [] Respiratory: Denies cough or shortness of breath [] Cardiovascular: The patient denies any shortness of breath, chest pain, palpitations, or orthopnea [] GI: No additional information not addressed in HPI [] : Denies dysuria or hematuria [] Musculoskeletal: Denies back pain or joint pain [] Integument: Denies rash or skin lesions [] Neurologic: Denies headache, focal weakness or sensory changes [] Endocrine: Denies polyuria or polydipsia [] All other systems were reviewed and found to be within normal limits, except as documented in this note. Allergies Allergies Allergies Coded Allergies Type Severity Reaction Last Updated Verified No Known Drug Allergies 04/02/14 No Physical Exam Physical Exam PHYSICAL EXAM: CONSTITUTIONAL: Well developed, well nourished HEAD: normocephalic, atraumatic EENT: PERRL, EOMI. Conjunctivae normal color, sclerae non-icteric; moist mucous membranes. NECK: Supple, non-tender; no meningismus. LUNGS: Lungs CTA, breathing even and unlabored. Normal air movement. HEART: Regular rate and rhythm, no murmur CHEST: No deformity; non-tender ABDOMEN: The abdomen is soft, normal bowel sounds are present. There is diffuse tenderness to palpation of the upper abdomen, without focal tenderness, rebound , or guarding, the right upper quadrant itself is relatively nontender, Mckinnon sign is absent, the lower abdomen is soft and non-tender, no masses or bruits. EXTREM: Normal ROM; no deformity, no calf tenderness. Normal pulses palpable in all extremities. There is no pedal edema. SKIN: No rash; no diaphoresis NEURO: Alert; normal speech and cognition; CN's grossly intact; strength grossly intact without focal deficit. BACK: No CVA TTP. Current Patient Data Lab Results Laboratory Tests Test 03/17/18 13:13 03/17/18 15:30 White Blood Count 6.2 x10^3/uL Red Blood Count 4.43 x10^6/uL Hemoglobin 14.5 g/dL Hematocrit 42.5 % Mean Corpuscular Volume 96 fL Mean Corpuscular Hemoglobin 33 pg Mean Corpuscular Hemoglobin Concent 34 g/dL Red Cell Distribution Width 13.8 % Platelet Count 216 x10^3/uL Neutrophils (%) (Auto) 91 % Lymphocytes (%) (Auto) 4 % Monocytes (%) (Auto) 4 % Eosinophils (%) (Auto) 1 % Basophils (%) (Auto) 0 % Neutrophils # (Auto) 5.6 x10^3uL Lymphocytes # (Auto) 0.3 x10^3/uL Monocytes # (Auto) 0.3 x10^3/uL Eosinophils # (Auto) 0.1 x10^3/uL Basophils # (Auto) 0.0 x10^3/uL Sodium Level 137 mmol/L Potassium Level 4.3 mmol/L Chloride Level 101 mmol/L Carbon Dioxide Level 22 mmol/L Anion Gap 14 Blood Urea Nitrogen 22 mg/dL Creatinine 1.3 mg/dL Estimated GFR (Cockcroft-Gault) 47.3 BUN/Creatinine Ratio 17 Glucose Level 118 mg/dL Lactic Acid Level 1.2 mmol/L Calcium Level 9.8 mg/dL Total Bilirubin 0.4 mg/dL Aspartate Amino Transf (AST/SGOT) 18 U/L Alanine Aminotransferase (ALT/SGPT) 19 U/L Alkaline Phosphatase 89 U/L Troponin I Quantitative 0.021 ng/mL Total Protein 8.3 g/dL Albumin 3.3 g/dL Albumin/Globulin Ratio 0.7 Lipase 65 U/L Urine Collection Type Unknown Urine Color Yellow Urine Clarity Clear Urine pH 5.5 Urine Specific Williams 1.010 Urine Protein Neg Urine Glucose (UA) Neg mg/dL Urine Ketones (Stick) Neg mg/dL Urine Blood Neg Urine Nitrite Neg Urine Bilirubin Neg Urine Urobilinogen Dipstick 0.2 mg/dL Urine Leukocyte Esterase Neg Urine RBC 1-2 /HPF Urine WBC 1-4 /HPF Urine Squamous Epithelial Cells Many /LPF Urine Bacteria Few /HPF Urine Hyaline Casts Mod /HPF Urine Mucus Mod /LPF Current Medications Medications (Trade) Dose Ordered Sig/Johana Route PRN Reason Start Time Stop Time Status Last Admin Dose Admin Sodium Chloride 1,000 ml @ 1,000 mls/hr Q1H IV 03/17/18 13:00 03/17/18 13:59 DC 03/17/18 13:25 Fentanyl Citrate (Fentanyl 2ml Vial) 25 mcg 1X ONCE IV 03/17/18 13:15 03/17/18 13:16 DC 03/17/18 13:26 Ondansetron HCl (Zofran) 4 mg 1X ONCE IV 03/17/18 13:15 03/17/18 13:16 DC 03/17/18 13:25 Iohexol (Omnipaque 300 Mg/ml) 75 ml 1X ONCE IV 03/17/18 13:15 03/17/18 13:16 DC 03/17/18 13:47 EKG EKG [Normal sinus rhythm at a rate of 61 bpm, left axis deviation, normal intervals , nonspecific ST/T changes.] Radiology/Procedures Radiology/Procedures [PROCEDURE: CT ABD PELV W/ IV CONTRST ONLY ADDENDUM The body of the report states that there is a mass lateral to the left kidney. The mass is actually lateral to the right kidney. Electronically signed by: Alcon Taylor MD (03/17/2018 3:40 PM) [id number] DICTATED AND SIGNED BY: ALCON TAYLOR MD DATE: 03/17/18 1539 CC: NELIDA BYNUM MD; SHLOMO HODGES MD ~ Examination: CT ABD PELV W/ IV CONTRST ONLY History: Generalized abdominal pain with Nausea,Appdx removed,Melanoma. OMNI 300 60ml Reduced dose per department protocol. GFR 44, Creat 1.3 Comparison/Correlation: None Findings: Axial images of the abdomen and pelvis were obtained following IV contrast. Sagittal and coronal reformatted images provided. Catheter is noted within the right atrium. A 0.5 cm transverse by 5.2 cm anteroposterior by 7.6 cm longitudinal irregularly lobulated mass is noted involving the distal thoracic esophagus and gastroesophageal junction. Gallbladder fossa is unremarkable. Liver, spleen, pancreas, and right adrenal gland are normal. There is a left adrenal gland low-attenuation lesion measuring 2 cm x 1.6 cm. Kidneys are normal. Moderate quantity of stool in the colon noted. Diverticulosis of the colon is present. There is a mass lesion lateral to the left renal inferior pole which extends to abut the ascending colon. This is a lobulated soft tissue density mass which measures 4.6 cm x 3.6 cm. No ascites or pelvic free fluid. Fibroid uterus noted. Facet joint degenerative changes of the lumbar spine are present. Impression: Large mass involves the distal thoracic esophagus which is of concern for primary esophageal carcinoma. Metastatic etiology not excluded. Mass is noted lateral to the right renal inferior pole. Left adrenal gland low-attenuation nodule present. Patient has reported history of melanoma. Underlying metastases may account for these findings.] Course & Med Decision Making Course & Med Decision Making 4:35 PM: The patient's condition remains stable. She has not had any vomiting in the emergency department. She states that she has a known history of melanoma , and has been getting radiation treatments . She states her last treatment was this past Wednesday. She is scheduled to see her oncologist in another week. She states that the radiation treatment is for a mass in her esophagus/stomach area, which I suspect is redemonstrated on CT today. The patient's son states he was also aware of some marc-nephric masses well. I do not think the findings on today's CT scan are new. The patient states her last imaging tests at was about a month ago. The patient feels well enough to go home and would like to do so. I stressed importance of close follow-up with her oncologist tomorrow, for further evaluation and treatment. We discussed return precautions. Pertinent Labs and Imaging studies reviewed. (See chart for details) [] Dragon Disclaimer Dragon Disclaimer This electronic medical record was generated, in whole or in part, using a voice recognition dictation system. Departure Departure: Impression: Primary Impression: Nausea Additional Impression: Metastatic melanoma Disposition: HOME, SELF-CARE Condition: STABLE Referrals: NELIDA BYNUM MD (PCP) Patient Instructions: Melanoma Recurrence, Nausea, Adult Additional Instructions: Call your oncologist's office tomorrow, discussed the abnormal findings on CT today, to ensure that they are compared with other recent imaging that had, and follow-up with your oncologist in the office to determine further treatment. Return to medical care for any new or worsening symptoms, development of worsening pain, fever, vomiting, or any other new or concerning symptoms. Scripts Ondansetron Hcl (ZOFRAN) 4 Mg Tablet 1 TAB PO Q6HRS for nausea, #20 TAB Prov: SHLOMO HODGES MD 03/17/18 Problem Qualifiers SHLOMO HODGES MD Mar 17, 2018 13:05
[2018-03-17] MEDS ORDERED: IOHEXOL 300 MG/ML 75 ML VIAL. IV ONE (13:15)
[2018-03-17] MEDS ORDERED: ONDANSETRON PF 4 MG/2 ML VIAL. IV ONE (13:15)
[2018-03-17 13:29] LABS: BASO % 0 % (0-3); EOS # 0.1 x10^3/uL (0.0-0.7); EOS % 1 % (0-3); HEMATOCRIT 42.5 % (36.0-47.0); HEMOGLOBIN 14.5 g/dL (12.0-15.5); LYMPH # 0.3 x10^3/uL (1.0-4.8); LYMPH % 4 % (24-48); MEAN CORPUSCULAR HEMOGLOBIN 33 pg (25-35); MEAN CORPUSCULAR HGB CONC 34 g/dL (31-37); MEAN CORPUSCULAR VOLUME 96 fL (79-100); MONO # 0.3 x10^3/uL (0.0-1.1); MONO % 4 % (0-9); NEUT # 5.6 x10^3uL (1.8-7.7); NEUT % 91 % (31-73); PLATELET COUNT 216 x10^3/uL (140-400); RED BLOOD COUNT 4.43 x10^6/uL (3.50-5.40); RED CELL DISTRIBUTION WIDTH 13.8 % (11.5-14.5); WHITE BLOOD COUNT 6.2 x10^3/uL (4.0-11.0)
[2018-03-17 13:42] LABS: ALBUMIN 3.3 g/dL (3.4-5.0); ALBUMIN/GLOBULIN RATIO 0.7 (1.0-1.7); CALCIUM 9.8 mg/dL (8.5-10.1); CREATININE 1.3 mg/dL (0.6-1.0); GFR 47.3; POTASSIUM 4.3 mmol/L (3.5-5.1); TOTAL BILIRUBIN 0.4 mg/dL (0.2-1.0); TOTAL PROTEIN 8.3 g/dL (6.4-8.2)
[2018-03-17 16:01] VITALS: BP 119/68
[2018-03-17 16:01] LABS: BACTERIA,URINE FEW /HPF (0-FEW); BILIRUBIN,URINE NEG (NEG); CLARITY,URINE CLEAR; COLOR,URINE YELLOW; GLUCOSE,URINE NEG (NEG); NITRITE,URINE NEG (NEG); SQUAMOUS EPITHELIAL CELL,UR MANY /LPF; UROBILINOGEN,URINE 0.2 mg/dL (0.2 mg/dL)
[2018-03-17 16:04] LABS: HYALINE CASTS, URINE MOD /HPF
--- NOTE | 2018-03-17 16:17 | RAD ---
Examination: CT ABD PELV W/ IV CONTRST ONLY History: Generalized abdominal pain with Nausea,Appdx removed,Melanoma. OMNI 300 60ml Reduced dose per department protocol. GFR 44, Creat 1.3 Comparison/Correlation: None Findings: Axial images of the abdomen and pelvis were obtained following IV contrast. Sagittal and coronal reformatted images provided. Catheter is noted within the right atrium. A 0.5 cm transverse by 5.2 cm anteroposterior by 7.6 cm longitudinal irregularly lobulated mass is noted involving the distal thoracic esophagus and gastroesophageal junction. Gallbladder fossa is unremarkable. Liver, spleen, pancreas, and right adrenal gland are normal. There is a left adrenal gland low-attenuation lesion measuring 2 cm x 1.6 cm. Kidneys are normal. Moderate quantity of stool in the colon noted. Diverticulosis of the colon is present. There is a mass lesion lateral to the left renal inferior pole which extends to abut the ascending colon. This is a lobulated soft tissue density mass which measures 4.6 cm x 3.6 cm. No ascites or pelvic free fluid. Fibroid uterus noted. Facet joint degenerative changes of the lumbar spine are present. Impression: Large mass involves the distal thoracic esophagus which is of concern for primary esophageal carcinoma. Metastatic etiology not excluded. Mass is noted lateral to the right renal inferior pole. Left adrenal gland low-attenuation nodule present. Patient has reported history of melanoma. Underlying metastases may account for these findings. Electronically signed by: Alcon Chen MD (03/17/2018 2:20 PM) [id number]
[2018-03-17] MEDS ORDERED: ONDA4TAB7 PO (16:37)
--- NOTE | 2018-03-18 19:36 | EKG ---
[address] [address] Test Date: 2018-03-17 Test Time: 13:20:41 Pat Name: WHITNEY FISHER Department: Room: Gender: F [employer]al: : 1935 Requested By: SHLOMO HODGES Order Number: [id number] Reading MD: Measurements Intervals [place] Rate: 61 P: 24 ID: [id number] QRS: -18 QRSD: 82 T: 44 QT: 394 QTc: 398 Interpretive Statements SINUS RHYTHM ATRIAL PREMATURE COMPLEX(ES) LEFTWARD AXIS R-S TRANSITION ZONE IN V LEADS DISPLACED TO THE LEFT QRS(T) CONTOUR ABNORMALITY CONSIDER ANTEROSEPTAL MYOCARDIAL DAMAGE POSSIBLY ABNORMAL ECG RI6.01 Unconfirmed report No previous ECG available for comparison
== END 2018-03-17 16:46 | disposition home or self-care (01) ==
LOC: ER 12:46
DX: C79.9 Secondary malignant neoplasm of unspecified site (principal); N28.89 Other specified disorders of kidney and ureter; R11.0 Nausea
CPT/HCPCS: 36415; 74177; 80053; 81001; 83605; 83690; 84484; 85025; 93005; 96374; 96375; 99284; J2405; J3010; Q9967; J7030

== ENCOUNTER 2018-07-09 08:07 | Emergency (ER) | payer MEDICARE, OTHER ==
[~2018-07-09] VITALS: Ht 167.6 cm; Wt 93.5 kg
[2018-07-09 08:07] VITALS: BP 141/66
[~2018-07-09 08:07] MED LIST changes: +AMLO5TAB10 PO; -AMLO5TAB7 PO; +ONDA4TAB7 PO
[2018-07-09] MEDS ORDERED: LIDOCAINE 2% TOPICAL JELLY 5GM TUBE. TP ONE ×2 (08:59→09:15)
[2018-07-09] MEDS ORDERED: IV NORMAL SALINE 1,000ML 1,000 ML IV ONE (09:00)
[2018-07-09] MEDS ORDERED: ONDANSETRON PF 4 MG/2 ML VIAL. IV ONE (09:00)
--- NOTE | 2018-07-09 09:09 | PHYS DOC ---
Past History Past Medical History: A-Fib, Cancer, Hypertension, Other Additional Past Medical Histor: melanoma Past Surgical History: Appendectomy, Cancer Surgery, Knee Replacement, Other Alcohol Use: Occasionally Drug Use: None Adult General Chief Complaint Chief Complaint: NAUSEA/VOMITING/DIARRHEA HPI HPI 83-year-old female presents with nausea and vomiting for the last 2 days. The patient has melanoma of the esophagus. Her only complaint right now is that she has been vomiting. She states it is nonbilious, nonbloody. Generalized abdominal pains started after the vomiting, but she states it is "not bad." She does not have antiemetics at home. She denies diarrhea. In fact, she has not had stool in 5 days. She is also not been eating due to pain with swallowing. She has had flatulence. She denies fever or chills. Review of Systems Review of Systems Constitutional: Denies fever or chills [] Eyes: Denies change in visual acuity, redness, or eye pain [] HENT: Denies nasal congestion or sore throat [] Respiratory: Denies cough or shortness of breath [] Cardiovascular: No additional information not addressed in HPI [] GI: Mild abdominal pain, nausea, vomiting. Denies bloody stools or diarrhea [] : Denies dysuria or hematuria [] Musculoskeletal: Denies back pain or joint pain [] Integument: Denies rash or skin lesions [] Neurologic: Denies headache, focal weakness or sensory changes [] Endocrine: Denies polyuria or polydipsia [] All other systems were reviewed and found to be within normal limits, except as documented in this note. Current Medications Current Medications Current Medications Medications (Trade) Dose Ordered Sig/Johana Start Time Stop Time Status Last Admin Dose Admin Lidocaine HCl (Xylocaine 2% Topical 5gm Tube) 5 augustus STK-MED ONCE 07/09/18 08:59 07/09/18 09:00 DC Ondansetron HCl (Zofran) 4 mg 1X ONCE 07/09/18 09:00 07/09/18 09:01 DC Sodium Chloride 1,000 ml @ 1,000 mls/hr 1X ONCE 07/09/18 09:00 07/09/18 09:59 Allergies Allergies Allergies Coded Allergies Type Severity Reaction Last Updated Verified No Known Drug Allergies 04/02/14 No Physical Exam Physical Exam Constitutional: Well developed, well nourished, no acute distress, non-toxic appearance. [] HENT: Normocephalic, atraumatic, bilateral external ears normal, oropharynx moist, no oral exudates, nose normal. [] Eyes: PERRLA, EOMI, conjunctiva normal, no discharge. [] Neck: Normal range of motion, no tenderness, supple, no stridor. [] Cardiovascular: Heart rate regular rhythm, no murmur [] Lungs & Thorax: Bilateral breath sounds clear to auscultation [] Abdomen: Bowel sounds normal, soft, mild epigastric tenderness, no masses, no pulsatile masses. [] Skin: Warm, dry, no erythema, no rash. [] Back: No tenderness, no CVA tenderness. [] Extremities: No tenderness, no cyanosis, no clubbing, ROM intact, no edema. [] Neurologic: Alert and oriented X 3, normal motor function, normal sensory function, no focal deficits noted. [] Psychologic: Affect normal, judgement normal, mood normal. [] EKG EKG [] Radiology/Procedures Radiology/Procedures [] Impressions: Exam performed: X-ray abdomen KUB. Clinical Indication: Abdominal pain for one day with vomiting, history of melanoma Date of Service: 07/09/2018 Comparison: None available FINDINGS: Supine radiograph of the abdomen and pelvis reveals no evidence of ileus or obstruction. Definite pathologic calcification or organomegaly is not identified. Scattered stool throughout the colon suggesting mild constipation. There are degenerative changes about the lumbar spine. Impression: 1. No acute abnormality seen. Mild constipation . Electronically signed by: Deaynira Tinajero MD (07/09/2018 10:16 AM) [facility] DICTATED AND SIGNED BY: DEYANIRA TINAJERO MD DATE: 07/09/18 1016 CC: NELIDA BYNUM MD; ADRIANA DENNIS DO ~ Course & Med Decision Making Course & Med Decision Making Pertinent Labs and Imaging studies reviewed. (See chart for details) The patient's labs are unremarkable. Abdominal films are needed for significant finding. She has mild constipation. I believe her vomiting is likely due to viral illness. I will discharge her with Zofran ODT. She is stable for discharge at this time. [] Dragon Disclaimer Dragon Disclaimer This electronic medical record was generated, in whole or in part, using a voice recognition dictation system. Departure Departure: Impression: Primary Impression: Vomiting Disposition: 01 HOME, SELF-CARE Condition: STABLE Referrals: NELIDA BYNUM MD (PCP) Patient Instructions: Nausea and Vomiting, [id number] Scripts Ondansetron (ONDANSETRON ODT) 4 Mg Tab.rapdis 1 TAB PO PRN Q6-8HRS PRN for VOMITING, #16 TAB Prov: ADRIANA DENNIS DO 07/09/18 Problem Qualifiers Primary Impression: Vomiting Vomiting type: unspecified Vomiting Intractability: non-intractable Nausea presence: with nausea Qualified Codes: R11.2 - Nausea with vomiting, unspecified ADRIANA DENNIS DO Jul 09, 2018 09:09
[2018-07-09 09:28] LABS: BASO % 1 % (0-3); EOS # 0.1 x10^3/uL (0.0-0.7); EOS % 3 % (0-3); HEMATOCRIT 37.5 % (36.0-47.0); HEMOGLOBIN 12.8 g/dL (12.0-15.5); LYMPH # 0.6 x10^3/uL (1.0-4.8); LYMPH % 13 % (24-48); MEAN CORPUSCULAR HEMOGLOBIN 32 pg (25-35); MEAN CORPUSCULAR HGB CONC 34 g/dL (31-37); MEAN CORPUSCULAR VOLUME 94 fL (79-100); MONO # 0.2 x10^3/uL (0.0-1.1); MONO % 5 % (0-9); NEUT # 3.7 x10^3uL (1.8-7.7); NEUT % 79 % (31-73); PLATELET COUNT 176 x10^3/uL (140-400); RED CELL DISTRIBUTION WIDTH 13.7 % (11.5-14.5); WHITE BLOOD COUNT 4.7 x10^3/uL (4.0-11.0)
[2018-07-09 09:40] LABS: ALBUMIN 2.9 g/dL (3.4-5.0); ALBUMIN/GLOBULIN RATIO 0.6 (1.0-1.7); CALCIUM 9.3 mg/dL (8.5-10.1); GFR 63.9; TOTAL BILIRUBIN 0.4 mg/dL (0.2-1.0); TOTAL PROTEIN 7.5 g/dL (6.4-8.2)
--- NOTE | 2018-07-09 10:19 | RAD ---
Exam performed: X-ray abdomen KUB. Clinical Indication: Abdominal pain for one day with vomiting, history of melanoma Date of Service: 07/09/2018 Comparison: None available FINDINGS: Supine radiograph of the abdomen and pelvis reveals no evidence of ileus or obstruction. Definite pathologic calcification or organomegaly is not identified. Scattered stool throughout the colon suggesting mild constipation. There are degenerative changes about the lumbar spine. Impression: 1. No acute abnormality seen. Mild constipation . Electronically signed by: Deyanira Tinajero MD (07/09/2018 10:16 AM) [facility]
[2018-07-09] MEDS ORDERED: ONDA4TAB12 PO (10:44)
== END 2018-07-09 10:58 | disposition home or self-care (01) ==
LOC: ER 08:07
DX: R11.2 Nausea with vomiting, unspecified (principal); R10.84 Generalized abdominal pain; R14.3 Flatulence; I48.91 Unspecified atrial fibrillation; I10 Essential (primary) hypertension; Z90.89 Acquired absence of other organs
CPT/HCPCS: 36415; 74018; 80053; 85025; 96361; 96374; 99285; J2405; J7030

== ENCOUNTER 2018-07-21 18:08 | Emergency (ER) | payer MEDICARE, OTHER ==
[~2018-07-21] VITALS: Ht 167.6 cm; Wt 93.5 kg
[~2018-07-21 18:08] MED LIST changes: +ONDA4TAB12 PO
[2018-07-21] MEDS ORDERED: IV NORMAL SALINE 1,000ML 1,000 ML IV SCH (18:22)
[2018-07-21] MEDS ORDERED: ONDANSETRON PF 4 MG/2 ML VIAL. IV ONE (18:30)
--- NOTE | 2018-07-21 18:31 | PHYS DOC ---
Past History Past Medical History: A-Fib, Cancer, Hypertension, Other Additional Past Medical Histor: melanoma (SYLWIA BAEZ Jr., DO) Past Surgical History: Appendectomy, Cancer Surgery, Knee Replacement, Other (SYLWIA BAEZ Jr., DO) Alcohol Use: Occasionally Drug Use: None (SYLWIA BAEZ Jr., DO) Adult General Chief Complaint Chief Complaint: OTHER COMPLAINTS HPI HPI Patient is an 83-year-old female who presents with complaint of abdominal pain with gagging and nausea with dry heaves that started 2 days ago. Patient petty richards had been admitted to [facility] due to dysphagia associated with esophageal mass. Patient had transabdominal feeding tube placed as they were not able to introduce scope transesophageally due to size of mass. Patient indicates that her last bowel movement was 2 days ago and she has not really been passing gas since. She states that she is very nauseated but has not been able to vomit. (SYLWIA BAEZ Jr., DO) Review of Systems Review of Systems Constitutional: Denies fever or chills [] Respiratory: Denies cough or shortness of breath [] Cardiovascular: No additional information not addressed in HPI [] GI: Positive abdominal pain with nausea. Denies vomiting or diarrhea [] Integument: Denies rash or skin lesions [] Neurologic: Denies headache, focal weakness or sensory changes [] All other systems were reviewed and found to be within normal limits, except as documented in this note. (SYLWIA BAEZ Jr., DO) Current Medications Current Medications Current Medications Medications (Trade) Dose Ordered Sig/Johana Start Time Stop Time Status Last Admin Dose Admin Ondansetron HCl (Zofran) 4 mg 1X ONCE 07/21/18 18:30 07/21/18 18:31 Sodium Chloride 1,000 ml @ 100 mls/hr Q10H 07/21/18 18:22 07/22/18 04:21 (SYLWIA BAEZ Jr., DO) Allergies Allergies Allergies Coded Allergies Type Severity Reaction Last Updated Verified No Known Drug Allergies 04/02/14 No (SYLWIA BAEZ Jr., DO) Physical Exam Physical Exam Constitutional: Well developed, well nourished, no acute distress, non-toxic appearance. [] HENT: Normocephalic, atraumatic, bilateral external ears normal, oropharynx moist, no oral exudates, nose normal. [] Eyes: PERRLA, EOMI, conjunctiva normal, no discharge. [] Neck: Normal range of motion, no tenderness, supple, no stridor. [] Cardiovascular: Regular rate and rhythm[] Lungs & Thorax: Bilateral breath sounds clear to auscultation [] Abdomen: Bowel sounds diminished, soft with diffuse tenderness, mildly distended. [] Skin: Warm, dry, no erythema, no rash. [] Extremities: No tenderness, no cyanosis, no clubbing, ROM intact. [] Neurologic: Alert and oriented X 3, no focal deficits noted. [] (SYLWIA BAEZ Jr. DO) Current Patient Data Vital Signs Vital Signs Date Time Temp Pulse Resp B/P (MAP) Pulse Ox O2 Delivery O2 Flow Rate FiO2 07/21/18 18:20 97.8 65 18 99 Room Air (SYLWIA BAEZ Jr. DO) Lab Results Laboratory Tests Test 07/21/18 18:30 White Blood Count 6.9 x10^3/uL Red Blood Count 3.75 x10^6/uL Hemoglobin 12.1 g/dL Hematocrit 35.3 % Mean Corpuscular Volume 94 fL Mean Corpuscular Hemoglobin 32 pg Mean Corpuscular Hemoglobin Concent 34 g/dL Red Cell Distribution Width 14.0 % Platelet Count 220 x10^3/uL Neutrophils (%) (Auto) 85 % Lymphocytes (%) (Auto) 8 % Monocytes (%) (Auto) 6 % Eosinophils (%) (Auto) 1 % Basophils (%) (Auto) 0 % Neutrophils # (Auto) 5.9 x10^3uL Lymphocytes # (Auto) 0.5 x10^3/uL Monocytes # (Auto) 0.4 x10^3/uL Eosinophils # (Auto) 0.0 x10^3/uL Basophils # (Auto) 0.0 x10^3/uL Sodium Level 138 mmol/L Potassium Level 4.0 mmol/L Chloride Level 103 mmol/L Carbon Dioxide Level 27 mmol/L Anion Gap 8 Blood Urea Nitrogen 18 mg/dL Creatinine 1.1 mg/dL Estimated GFR (Cockcroft-Gault) 57.3 BUN/Creatinine Ratio 16 Glucose Level 128 mg/dL Calcium Level 8.9 mg/dL Total Bilirubin 0.3 mg/dL Aspartate Amino Transf (AST/SGOT) 35 U/L Alanine Aminotransferase (ALT/SGPT) 33 U/L Alkaline Phosphatase 101 U/L Total Protein 7.4 g/dL Albumin 2.6 g/dL Albumin/Globulin Ratio 0.5 Lipase 52 U/L Current Medications Medications (Trade) Dose Ordered Sig/Johana Route PRN Reason Start Time Stop Time Status Last Admin Dose Admin Sodium Chloride 1,000 ml @ 100 mls/hr Q10H IV 07/21/18 18:22 07/22/18 04:21 07/21/18 18:38 Ondansetron HCl (Zofran) 4 mg 1X ONCE IV 07/21/18 18:30 07/21/18 18:31 DC 07/21/18 18:38 Iohexol (Omnipaque 300 Mg/ml) 75 ml 1X ONCE IV 07/21/18 19:30 07/21/18 19:31 DC 07/21/18 20:22 Iohexol (Omnipaque 240 Mg/ml) 30 ml 1X ONCE PO 07/21/18 20:00 07/21/18 20:01 DC 07/21/18 20:21 (SHLOMO HODGES MD) EKG EKG [] (SYLWIA BAEZ Jr. DO) Radiology/Procedures Radiology/Procedures [] (SYLWIA BAEZ Jr. DO) Radiology/Procedures PROCEDURE: CT ABD PELV W/ORAL&IV CONTRAST CT ABD PELV W/ORAL IV CONTRAST Indication: Omni 300 60cc: Abdomen pain, nausea, bloating, 07/17/18 feeding tube placed. Hx: Appendectomy Exposure: One or more of the following individualized dose reduction techniques were utilized for this examination: 1. Automated exposure control 2. Adjustment of the mA and/or kV according to patient size 3. Use of iterative reconstruction technique. Technique: Intravenous contrast was given. Contrast was also administered through the patient's gastrostomy tube Comparison: 03/17/2018. FINDINGS: Mild atelectasis in the lung bases. Liver and spleen unremarkable. No peripancreatic fluid or inflammatory change. Hypodense left adrenal mass is unchanged measuring 2 cm. No right adrenal mass. Kidneys demonstrate symmetric enhancement without hydronephrosis. There is mild gallbladder distention with mild wall thickening, similar to the prior study. No calcified gallstone. Aorta is mildly calcified, no aneurysm. Large mass in the lower chest, associated with the distal esophagus and GE junction is again identified measures about 7.6 x 6.1 x 8.2 cm longitudinal similar to slightly larger than prior study. Large mass immediately inferior and lateral to the lower pole of the right kidney has increased in size since the prior study now measuring 8.7 x 7.5 x 7.0 cm, as compared with 5.1 x 3.6 x 4.3 cm previously. This demonstrates broader contact upon the inferior right kidney and is inseparable from the renal margins. This is also inseparable from the anterior wall of the ascending colon. There is a percutaneous gastrostomy tube in place. The injected oral contrast appears intraluminal within the stomach. No significant small bowel distention. There is stool in the colon. Degenerative spondylosis of the spine. Transitional anatomy at the lumbosacral junction. No evidence of aggressive bone destruction. IMPRESSION: 1. Large soft tissue mass inferior to the right kidney has increased in size. 2. The large mass at the distal esophagus and GE junction is similar to slightly larger than prior study. 3. Left adrenal gland mass is stable. 4. Mild gallbladder distention and wall thickening appears similar, correlate for cholecystitis. (SHLOMO HODGES MD) Course & Med Decision Making Course & Med Decision Making Pertinent Labs and Imaging studies reviewed. (See chart for details) Patient moved to room upon arrival was evaluated by ER medical staff after which an IV was established and blood work was drawn. A CT of the abdomen and pelvis is also been ordered for this patient. At this time blood work and CT imaging are pending and patient is being signed out to the oncoming ER physician at 7:20 PM. (SYLWIA BAEZ Jr. DO) Course & Med Decision Making Patient care was assumed at shift change from Dr. Baez. The patient had a G- tube placed, secondary to esophageal obstruction from a known esophageal mass, likely thought to be a recurrence of her melanoma, per the patient's family. She also has a known right renal mass. She presented to the ER primarily for nausea and a gagging sensation. She states that she takes Zofran as needed, orally, as she is allowed to take liquids, but not solids. She is not having any significant abdominal pain. She has not had vomiting. Lab and imaging have been reviewed and the patient has been reassessed. She has mild abdominal tenderness to palpation, with a clean appearing surgical incision. There is no focal right upper quadrant tenderness to palpation. Bowel sounds are present. There is no rebound or guarding. I discussed test results with the patient and her family. She has a follow-up appointment with oncology scheduled for Wednesday. The patient feels well enough to go home. Return precautions were discussed in detail. I discussed limiting oral intake for the next 24 hours and using only the G-tube, for liquids, as well as medications. The patient does get scheduled G-tube feedings. (SHLOMO HODGES MD) Dragon Disclaimer Dragon Disclaimer This electronic medical record was generated, in whole or in part, using a voice recognition dictation system. (SYLWIA BAEZ Jr. DO) Departure Departure: Impression: Primary Impression: Nausea Additional Impression: Esophageal mass Disposition: HOME, SELF-CARE Condition: STABLE Referrals: NELIDA BYNUM MD (PCP) Patient Instructions: Nausea and Vomiting Problem Qualifiers SYLWIA BAEZ Jr., DO July 21, 2018 18:31 SHLOMO HODGES MD July 21, 2018 20:59
[2018-07-21 18:49] LABS: BASO % 0 % (0-3); EOS % 1 % (0-3); HEMATOCRIT 35.3 % (36.0-47.0); HEMOGLOBIN 12.1 g/dL (12.0-15.5); LYMPH # 0.5 x10^3/uL (1.0-4.8); LYMPH % 8 % (24-48); MEAN CORPUSCULAR HEMOGLOBIN 32 pg (25-35); MEAN CORPUSCULAR HGB CONC 34 g/dL (31-37); MEAN CORPUSCULAR VOLUME 94 fL (79-100); MONO # 0.4 x10^3/uL (0.0-1.1); MONO % 6 % (0-9); NEUT # 5.9 x10^3uL (1.8-7.7); NEUT % 85 % (31-73); PLATELET COUNT 220 x10^3/uL (140-400); RED BLOOD COUNT 3.75 x10^6/uL (3.50-5.40); WHITE BLOOD COUNT 6.9 x10^3/uL (4.0-11.0)
[2018-07-21 19:05] LABS: ALBUMIN 2.6 g/dL (3.4-5.0); ALBUMIN/GLOBULIN RATIO 0.5 (1.0-1.7); CALCIUM 8.9 mg/dL (8.5-10.1); CREATININE 1.1 mg/dL (0.6-1.0); GFR 57.3; TOTAL BILIRUBIN 0.3 mg/dL (0.2-1.0); TOTAL PROTEIN 7.4 g/dL (6.4-8.2)
[2018-07-21] MEDS ORDERED: IOHEXOL 300 MG/ML 75 ML VIAL. IV ONE (19:30)
[2018-07-21] MEDS ORDERED: IOHEXOL 240 MG/ML 50ML VIAL. PO ONE (20:00)
--- NOTE | 2018-07-21 20:48 | RAD ---
CT ABD PELV W/ORAL IV CONTRAST Indication: Omni 300 60cc: Abdomen pain, nausea, bloating, 07/17/18 feeding tube placed. Hx: Appendectomy Exposure: One or more of the following individualized dose reduction techniques were utilized for this examination: 1. Automated exposure control 2. Adjustment of the mA and/or kV according to patient size 3. Use of iterative reconstruction technique. Technique: Intravenous contrast was given. Contrast was also administered through the patient's gastrostomy tube Comparison: 03/17/2018. FINDINGS: Mild atelectasis in the lung bases. Liver and spleen unremarkable. No peripancreatic fluid or inflammatory change. Hypodense left adrenal mass is unchanged measuring 2 cm. No right adrenal mass. Kidneys demonstrate symmetric enhancement without hydronephrosis. There is mild gallbladder distention with mild wall thickening, similar to the prior study. No calcified gallstone. Aorta is mildly calcified, no aneurysm. Large mass in the lower chest, associated with the distal esophagus and GE junction is again identified measures about 7.6 x 6.1 x 8.2 cm longitudinal similar to slightly larger than prior study. Large mass immediately inferior and lateral to the lower pole of the right kidney has increased in size since the prior study now measuring 8.7 x 7.5 x 7.0 cm, as compared with 5.1 x 3.6 x 4.3 cm previously. This demonstrates broader contact upon the inferior right kidney and is inseparable from the renal margins. This is also inseparable from the anterior wall of the ascending colon. There is a percutaneous gastrostomy tube in place. The injected oral contrast appears intraluminal within the stomach. No significant small bowel distention. There is stool in the colon. Degenerative spondylosis of the spine. Transitional anatomy at the lumbosacral junction. No evidence of aggressive bone destruction. IMPRESSION: 1. Large soft tissue mass inferior to the right kidney has increased in size. 2. The large mass at the distal esophagus and GE junction is similar to slightly larger than prior study. 3. Left adrenal gland mass is stable. 4. Mild gallbladder distention and wall thickening appears similar, correlate for cholecystitis. Electronically signed by: Rodrick Maldonado MD (07/21/2018 8:46 PM) [facility]
[2018-07-21 20:52] VITALS: BP 154/89
[2018-07-21 20:58] LABS: BACTERIA,URINE FEW /HPF (0-FEW); BILIRUBIN,URINE NEG (NEG); CLARITY,URINE CLOUDY; COLOR,URINE AMBER; GLUCOSE,URINE NEG (NEG); NITRITE,URINE NEG (NEG); SQUAMOUS EPITHELIAL CELL,UR MOD /LPF; UROBILINOGEN,URINE 2 mg/dL (0.2 mg/dL)
== END 2018-07-21 21:12 | disposition home or self-care (01) ==
LOC: ER 18:08
DX: K22.8 Other specified diseases of esophagus (principal); K82.8 Other specified diseases of gallbladder; E27.8 Other specified disorders of adrenal gland; I48.91 Unspecified atrial fibrillation; I10 Essential (primary) hypertension
CPT/HCPCS: 36415; 74177; 80053; 81001; 83690; 85025; 87086; 96374; 99285; J2405; Q9966; Q9967; 87186; J7030

== ENCOUNTER 2018-07-27 07:53 | Emergency (ER) | payer MEDICARE, OTHER ==
[~2018-07-27] VITALS: Ht 160 cm; Wt 93.5 kg
[2018-07-27] MEDS: ONDANSETRON PF 4 MG/2 ML VIAL. IV ONE (08:50)
[2018-07-27] MEDS: IV NORMAL SALINE 500ML 500 ML IV ONE (08:51)
[2018-07-27 08:55] LABS: BASO % 0 % (0-3); EOS # 0.1 x10^3/uL (0.0-0.7); EOS % 1 % (0-3); HEMATOCRIT 34.6 % (36.0-47.0); HEMOGLOBIN 11.9 g/dL (12.0-15.5); LYMPH # 0.7 x10^3/uL (1.0-4.8); LYMPH % 8 % (24-48); MEAN CORPUSCULAR HEMOGLOBIN 32 pg (25-35); MEAN CORPUSCULAR HGB CONC 34 g/dL (31-37); MEAN CORPUSCULAR VOLUME 93 fL (79-100); MONO # 0.3 x10^3/uL (0.0-1.1); MONO % 4 % (0-9); NEUT # 6.8 x10^3uL (1.8-7.7); NEUT % 86 % (31-73); PLATELET COUNT 309 x10^3/uL (140-400); RED BLOOD COUNT 3.71 x10^6/uL (3.50-5.40); RED CELL DISTRIBUTION WIDTH 14.3 % (11.5-14.5); WHITE BLOOD COUNT 7.9 x10^3/uL (4.0-11.0)
[2018-07-27 09:08] LABS: ALBUMIN 2.5 g/dL (3.4-5.0); ALBUMIN/GLOBULIN RATIO 0.6 (1.0-1.7); CALCIUM 9.1 mg/dL (8.5-10.1); GFR 63.9; POTASSIUM 4.2 mmol/L (3.5-5.1); TOTAL BILIRUBIN 0.4 mg/dL (0.2-1.0); TOTAL PROTEIN 6.9 g/dL (6.4-8.2)
--- NOTE | 2018-07-27 09:55 | PHYS DOC ---
Past History Past Medical History: A-Fib, Cancer, Hypertension, Other Additional Past Medical Histor: melanoma Past Surgical History: Appendectomy, Cancer Surgery, Knee Replacement, Other Alcohol Use: Occasionally Drug Use: None Adult General Chief Complaint Chief Complaint: OTHER COMPLAINTS HPI HPI Patient is a 83-year-old female with a prior history of esophageal cancer large mass the GE junction on Noelle Leisa hypertension etc. who is presenting with G- tube fell out sometime this morning she noticed when she got out of bed. No abdominal pain no fever she does have mild nausea which is unchanged she had this G-tube put in about 10 days ago at [facility] apparently was an open procedure due to complicated GE anatomy Review of Systems Review of Systems Constitutional: Denies fever or chills [] Eyes: Denies change in visual acuity, redness, or eye pain [] HENT: Denies nasal congestion or sore throat [] Respiratory: Denies cough or shortness of breath [] Musculoskeletal: Denies back pain or joint pain [] Integument: Denies rash or skin lesions [] Neurologic: Denies headache, focal weakness or sensory changes [] Endocrine: Denies polyuria or polydipsia [] All other systems were reviewed and found to be within normal limits, except as documented in this note. Current Medications Current Medications Current Medications Medications (Trade) Dose Ordered Sig/Jhoana Start Time Stop Time Status Last Admin Dose Admin Fentanyl Citrate (Fentanyl 2ml Vial) 50 mcg 1X ONCE 07/27/18 08:45 07/27/18 08:46 DC Ondansetron HCl (Zofran) 4 mg 1X ONCE 07/27/18 08:45 07/27/18 08:46 DC 07/27/18 08:50 4 MG Sodium Chloride 500 ml @ 0 mls/hr 1X ONCE 07/27/18 08:30 07/27/18 08:31 DC 07/27/18 08:51 500 MLS/HR Allergies Allergies Allergies Coded Allergies Type Severity Reaction Last Updated Verified No Known Drug Allergies 07/27/18 No Physical Exam Physical Exam Constitutional: Well developed, well nourished, no acute distress, non-toxic appearance. [] HENT: Normocephalic, atraumatic, bilateral external ears normal, oropharynx moist, no oral exudates, nose normal. [] Eyes: PERRLA, EOMI, conjunctiva normal, no discharge. [] Neck: Normal range of motion, no tenderness, supple, no stridor. [] Cardiovascular irregular no definite murmurs Lungs & Thorax: Bilateral breath sounds clear to auscultation [] Abdomen: Bowel sounds normal, soft, there is a well-healing surgical incision and niece epigastric area there is a small hole where the G-tube recently was no active bleeding no signs of cellulitis Skin: Warm, dry, no erythema, no rash. [] Back: No tenderness, no CVA tenderness. [] Extremities: No tenderness, no cyanosis, no clubbing, ROM intact, trace edema Neurologic: Alert and oriented X 3, normal motor function, normal sensory function, no focal deficits noted. [] Psychologic: Affect normal, judgement normal, mood normal. [] Current Patient Data Vital Signs Vital Signs Date Time Temp Pulse Resp B/P (MAP) Pulse Ox O2 Delivery O2 Flow Rate FiO2 07/27/18 08:22 97.0 62 20 97 Room Air Lab Results Laboratory Tests Test 07/27/18 08:38 White Blood Count 7.9 x10^3/uL (4.0-11.0) Red Blood Count 3.71 x10^6/uL (3.50-5.40) Hemoglobin 11.9 g/dL (12.0-15.5) L Hematocrit 34.6 % (36.0-47.0) L Mean Corpuscular Volume 93 fL (79-100) Mean Corpuscular Hemoglobin 32 pg (25-35) Mean Corpuscular Hemoglobin Concent 34 g/dL (31-37) Red Cell Distribution Width 14.3 % (11.5-14.5) Platelet Count 309 x10^3/uL (140-400) Neutrophils (%) (Auto) 86 % (31-73) H Lymphocytes (%) (Auto) 8 % (24-48) L Monocytes (%) (Auto) 4 % (0-9) Eosinophils (%) (Auto) 1 % (0-3) Basophils (%) (Auto) 0 % (0-3) Neutrophils # (Auto) 6.8 x10^3uL (1.8-7.7) Lymphocytes # (Auto) 0.7 x10^3/uL (1.0-4.8) L Monocytes # (Auto) 0.3 x10^3/uL (0.0-1.1) Eosinophils # (Auto) 0.1 x10^3/uL (0.0-0.7) Basophils # (Auto) 0.0 x10^3/uL (0.0-0.2) Prothrombin Time 10.5 SEC (9.4-11.4) Prothrombin Time INR 1.1 (0.9-1.1) Sodium Level 133 mmol/L (136-145) L Potassium Level 4.2 mmol/L (3.5-5.1) Chloride Level 98 mmol/L (98-107) Carbon Dioxide Level 30 mmol/L (21-32) Anion Gap 5 (6-14) L Blood Urea Nitrogen 21 mg/dL (7-20) H Creatinine 1.0 mg/dL (0.6-1.0) Estimated GFR (Cockcroft-Gault) 63.9 BUN/Creatinine Ratio 21 (6-20) H Glucose Level 84 mg/dL (70-99) Calcium Level 9.1 mg/dL (8.5-10.1) Total Bilirubin 0.4 mg/dL (0.2-1.0) Aspartate Amino Transferase (AST) 29 U/L (15-37) Alanine Aminotransferase (ALT) 38 U/L (14-59) Alkaline Phosphatase 87 U/L (46-116) Total Protein 6.9 g/dL (6.4-8.2) Albumin 2.5 g/dL (3.4-5.0) L Albumin/Globulin Ratio 0.6 (1.0-1.7) L EKG EKG [] Radiology/Procedures Radiology/Procedures [] Course & Med Decision Making Course & Med Decision Making Pertinent Labs and Imaging studies reviewed. (See chart for details) []Labs look stable overall. I spoke with the transfer team at [facility] I talked to the transfer nurse. Excepting doctor Dr. Kelton Romero transfer to the emergency room for evaluation. Of note the transfer triage nurse did tell me that Dr. Romero had asked me to try to put a Chavez catheter in. At this point I do not feel comfortable with that it is a new G-tube site and complicated by an open procedure technique. In my usual practice I have not placed a Chavez catheter or G-tube in a new G-tube site like this. I would be concerned about a perforation and I don't feel comfortable with this. I did request over the phone line that I could speak with Dr. Romero and talk about the risks and benefits I would consider it however Dr. Romero is scrubbed into surgery at this time so the plan will be to take the patient to the emergency room as soon as possible as of this dictation 9:54 AM the patient stable for transfer. Dragon Disclaimer Dragon Disclaimer This electronic medical record was generated, in whole or in part, using a voice recognition dictation system. Departure Departure: Impression: Primary Impression: Complaint associated with gastric tube Disposition: XFER SHT-TRM HOSP Condition: STABLE Referrals: NELIDA BYNUM MD (PCP) OLGA BUSTILLOS MD July 27, 2018 09:55
[2018-07-27 10:00] VITALS: BP 163/87
== END 2018-07-27 10:46 | disposition short-term general hospital (02) ==
LOC: ER 07:53
DX: Z43.1 Encounter for attention to gastrostomy (principal); R11.0 Nausea; I48.91 Unspecified atrial fibrillation; I10 Essential (primary) hypertension; Z90.89 Acquired absence of other organs
CPT/HCPCS: 36415; 80053; 85025; 85610; 96374; 99285; J2405; J7040

== ENCOUNTER 2018-07-31 22:59 | Inpatient (IN) | payer MEDICARE, OTHER ==
[~2018-07-31] VITALS: Ht 160 cm; Wt 83.9 kg
--- NOTE | 2018-07-31 23:02 | ED.ADGEN ---
Past History Past Medical History: A-Fib, Cancer, Hypertension, Other Additional Past Medical Histor: melanoma Past Surgical History: Appendectomy, Cancer Surgery, Knee Replacement, Other Alcohol Use: Occasionally Drug Use: None Adult General Chief Complaint Chief Complaint ".. I ve been coughing a lot more.. more short of breath.. It was a lot worse tonight..." Pt. " She a coughing spell yesterday.. but got over it.. but tonight it started and she could not quit.." HPI HPI Patient is a 83 year old female who presents with above hx and complaints of coughing incessantly tonight. Vomiting and Coughing increased after attempting to take pain meds by mouth. Patient has extensive medical history with metastatic melanoma after resection of left hip mass. Patient has been on multiple chemotherapies including 4-5 courses of radiation of her chest for a melanoma mass on the right. Patient's melanoma treatment was stopped appro ximate 4-5 months ago. Patient does on occasion have dysphagia problems and received gastric tube for this problems. Pt. has know esophageal scarring and narrowing. Attempts to dilated esophageal and stint placement unsuccessful. Patient has a follow-up this coming Wednesday for removal of alejandro for the open gastric tube placement. Patient occasionally attempts to take pills that are crushed up and liquids by mouth. Patient has history of urinary retention, UTIs, hypertension, hyponatremia, acute on chronic renal failure, pancytopenia, nausea and vomiting, and deconditioning. Patient normally treat at for her metastatic melanoma by . reports they have discussed advanced directives but have not established any parameters. She has not had any recent travel. No specific recent ill contacts. Patient in the past has followed with Dr. Nash and Dr. Maldonado. Pt. does take a Eliquis twice a day, Review of Systems Review of Systems Constitutional: Denies fever or chills [] Eyes: Denies change in visual acuity, redness, or eye pain [] HENT: Denies nasal congestion or sore throat [] Respiratory: Complains of cough and shortness of breath [] Cardiovascular: No additional information not addressed in HPI [] GI: Denies abdominal pain, nausea, vomiting, bloody stools or diarrhea [] : Denies dysuria or hematuria [] Musculoskeletal: Complains of generalized weakness Integument: Denies rash or skin lesions [] Neurologic: Denies headache, focal weakness or sensory changes [] Endocrine: Denies polyuria or polydipsia [] All other systems were reviewed and found to be within normal limits, except as documented in this note. Family History Family History Noncontributory Current Medications Current Medications Current Medications Medications (Trade) Dose Ordered Sig/Johana Start Time Stop Time Status Last Admin Dose Admin Albuterol/ Ipratropium (Duoneb) 3 ml 1X ONCE 08/01/18 00:30 08/01/18 00:32 DC 08/01/18 00:05 3 ML Aspirin (Children'S Aspirin) 324 mg 1X ONCE 07/31/18 23:30 07/31/18 23:31 DC Info (Anti-Coagulation Monitoring By Pharmacy) 1 each PRN DAILY PRN 08/01/18 01:00 Lactated Ringer's 1,000 ml @ 200 mls/hr Q5H 08/01/18 01:00 Methylprednisolone Sodium Succinate (SOLU-Medrol 125MG VIAL) 125 mg 1X ONCE 07/31/18 23:30 07/31/18 23:31 DC 08/01/18 00:13 125 MG Morphine Sulfate (Morphine 2mg Syringe) 2 mg PRN Q2HR PRN 08/01/18 01:00 08/02/18 00:59 Ondansetron HCl (Zofran) 8 mg PRN Q4HRS PRN 08/01/18 01:00 08/02/18 00:59 Sodium Bicarbonate (Sodium Bicarb Adult 8.4% Syr) 50 meq 1X ONCE 08/01/18 01:00 08/01/18 01:01 DC 08/01/18 00:59 50 MEQ Allergies Allergies Allergies Coded Allergies Type Severity Reaction Last Updated Verified No Known Drug Allergies 07/27/18 No Physical Exam Physical Exam Constitutional: Moderately acute distress, chronically ill in appearance. [] HENT: Normocephalic, atraumatic, bilateral external ears normal, oropharynx moist, no oral exudates, nose normal. [] Eyes: PERRLA, EOMI, conjunctiva normal, no discharge. [] Neck: Normal range of motion, no tenderness, supple, no stridor. [] Cardiovascular:Heart rate regular rhythm, no murmur []PMI to the left Lungs & Thorax: Bilateral breath sounds rhonchi and wheezing on auscultation []port right chest wall Abdomen: Bowel sounds decreased,, soft, no tenderness, no masses, no pulsatile masses. [] Old surgical scars. Gastric port Skin: Warm, dry, no erythema, no rash. [Poor turgor Back: No tenderness, no CVA tenderness. [] Extremities: No tenderness, no cyanosis, no clubbing, ROM intact, no edema. [] Bilateral knee scars and left hip scar Neurologic: Alert and oriented X 3, moves all extremities on request, has distal sensory function, no gross focal deficits noted from base line per pt. and . Psychologic: Affect anxious, judgement normal, mood depressed Current Patient Data Vital Signs Vital Signs Date Time Temp Pulse Resp B/P (MAP) Pulse Ox O2 Delivery O2 Flow Rate FiO2 08/01/18 01:00 65 16 143/61 (88) 95 Room Air 07/31/18 23:09 99.4 Lab Results Laboratory Tests Test 07/31/18 23:17 White Blood Count 9.8 x10^3/uL (4.0-11.0) Red Blood Count 3.92 x10^6/uL (3.50-5.40) Hemoglobin 12.3 g/dL (12.0-15.5) Hematocrit 36.5 % (36.0-47.0) Mean Corpuscular Volume 93 fL (79-100) Mean Corpuscular Hemoglobin 31 pg (25-35) Mean Corpuscular Hemoglobin Concent 34 g/dL (31-37) Red Cell Distribution Width 14.0 % (11.5-14.5) Platelet Count 360 x10^3/uL (140-400) Neutrophils (%) (Auto) 87 % (31-73) H Lymphocytes (%) (Auto) 7 % (24-48) L Monocytes (%) (Auto) 5 % (0-9) Eosinophils (%) (Auto) 1 % (0-3) Basophils (%) (Auto) 0 % (0-3) Neutrophils # (Auto) 8.5 x10^3uL (1.8-7.7) H Lymphocytes # (Auto) 0.7 x10^3/uL (1.0-4.8) L Monocytes # (Auto) 0.5 x10^3/uL (0.0-1.1) Eosinophils # (Auto) 0.0 x10^3/uL (0.0-0.7) Basophils # (Auto) 0.0 x10^3/uL (0.0-0.2) Prothrombin Time 10.3 SEC (9.4-11.4) Prothrombin Time INR 1.0 (0.9-1.1) PTT 41 SEC (23-33) H D-Dimer (Alina) 1.58 mg/L (0.00-0.50) H Sodium Level 129 mmol/L (136-145) L Potassium Level 5.1 mmol/L (3.5-5.1) Chloride Level 95 mmol/L (98-107) L Carbon Dioxide Level 28 mmol/L (21-32) Anion Gap 6 (6-14) Blood Urea Nitrogen 38 mg/dL (7-20) H Creatinine 1.1 mg/dL (0.6-1.0) H Estimated GFR (Cockcroft-Gault) 57.3 Glucose Level 114 mg/dL (70-99) H Lactic Acid Level 1.1 mmol/L (0.4-2.0) Calcium Level 9.3 mg/dL (8.5-10.1) Magnesium Level 2.1 mg/dL (1.8-2.4) Total Bilirubin 0.3 mg/dL (0.2-1.0) Direct Bilirubin 0.1 mg/dL (0.0-0.2) Aspartate Amino Transferase (AST) 87 U/L (15-37) H Alanine Aminotransferase (ALT) 50 U/L (14-59) Alkaline Phosphatase 106 U/L (46-116) Creatine Kinase 43 U/L (26-192) Troponin I Quantitative 0.020 ng/mL (0-0.055) ZD-Jow-U-Type Natriuretic Peptide 178 pg/mL (0-449) Total Protein 7.4 g/dL (6.4-8.2) Albumin 2.7 g/dL (3.4-5.0) L Lipase 72 U/L (73-393) L EKG EKG My interpretation EKG shows a sinus rhythm at 70 bpm. Has leftward axis and some nonspecific anterior lateral changes. No findings acute STEMI of contralateral changes[] Radiology/Procedures Radiology/Procedures My interpretation of chest x-ray shows cardiomegaly. Hilar fullness. Port on right. Similar to x-ray on 05/14.[] Course & Med Decision Making Course & Med Decision Making Pertinent Labs and Imaging studies reviewed. (See chart for details) Pt. and requested admit here to remain locally if possible tonight and avoid transfer to . They do have follow up at GI[facility]gery [facility] for removal sutures and a follow up later in week or next week in Oncology clinic. Admit to Dr. Robles- for hydration and hyponatremia. Hopefully short admit and pt can keep apt. s at Surgery- GI clinic on and follow up with oncology later in week. [] Final Impression Final Impression 1. Coughing- Suspect possible aspiration pneumonitis 2. Metastatic melanoma 3. Hyponatremia-129 4. Dehydration- elevated BUN and creatinine 38/1.1 5. Malnutrition Albumin 2.7 6. Elevated D-dimer 1.58 Dragon Disclaimer Dragon Disclaimer This electronic medical record was generated, in whole or in part, using a voice recognition dictation system. ERIN PARRISH MD July 31, 2018 23:02
[2018-07-31] MEDS ORDERED: ASPIRIN 81 MG TAB.CHEW PO ONE (23:30)
[2018-07-31] MEDS ORDERED: methylPREDNISolone SOD SUCC PF 125 MG/2 ML VIAL. IV ONE (23:30)
[2018-07-31 23:43] LABS: BASO % 0 % (0-3); EOS % 1 % (0-3); HEMATOCRIT 36.5 % (36.0-47.0); HEMOGLOBIN 12.3 g/dL (12.0-15.5); LYMPH # 0.7 x10^3/uL (1.0-4.8); LYMPH % 7 % (24-48); MEAN CORPUSCULAR HEMOGLOBIN 31 pg (25-35); MEAN CORPUSCULAR HGB CONC 34 g/dL (31-37); MEAN CORPUSCULAR VOLUME 93 fL (79-100); MONO # 0.5 x10^3/uL (0.0-1.1); MONO % 5 % (0-9); NEUT # 8.5 x10^3uL (1.8-7.7); NEUT % 87 % (31-73); PLATELET COUNT 360 x10^3/uL (140-400); RED BLOOD COUNT 3.92 x10^6/uL (3.50-5.40); WHITE BLOOD COUNT 9.8 x10^3/uL (4.0-11.0)
[2018-07-31] MEDS ORDERED: IPRATRPIUM/ALBUTEROL 0.5/2.5MG 3 ML NEBU. ONE (23:56)
[2018-07-31 23:57] LABS: ALBUMIN 2.7 g/dL (3.4-5.0); CALCIUM 9.3 mg/dL (8.5-10.1); CREATININE 1.1 mg/dL (0.6-1.0); DIRECT BILIRUBIN 0.1 mg/dL (0.0-0.2); GFR 57.3; MAGNESIUM 2.1 mg/dL (1.8-2.4); POTASSIUM 5.1 mmol/L (3.5-5.1); TOTAL BILIRUBIN 0.3 mg/dL (0.2-1.0); TOTAL PROTEIN 7.4 g/dL (6.4-8.2)
[2018-08-01] MEDS ORDERED: IPRATRPIUM/ALBUTEROL 0.5/2.5MG 3 ML NEBU. NEB ONE (00:30)
[2018-08-01] MEDS ORDERED: MORPHINE SULFATE 2 MG/ML DISP.SYRIN. IV PRN (01:00)
[2018-08-01] MEDS ORDERED: SODIUM BICARB ADULT 8.4% 50 MEQ/50 ML DISP.SYRIN. IV ONE ×2 (01:00→06:00)
[2018-08-01] MEDS ORDERED: IV RINGERS SOLUTION,LACTATED 1,000 ML IV ONE (01:00)
[2018-08-01] MEDS ORDERED: ONDANSETRON PF 4 MG/2 ML VIAL. IV PRN (01:00)
[2018-08-01] MEDS ORDERED: ANTI-COAG MONITOR BY PHARMACY. MC PRN (01:00)
[2018-08-01] MEDS ORDERED: PROCHLORPERAZINE 10 MG/2 ML VIAL. IV ONE (01:30)
[2018-08-01] MEDS ORDERED: diphenhydrAMINE 50 MG/ML VIAL IVP ONE (01:30)
[2018-08-01] MEDS: APIXABAN 5 MG TABLET. PO SCH ×2 (01:43→08:04)
[2018-08-01] MEDS: IV RINGERS SOLUTION,LACTATED 1,000 ML IV SCH ×3 (01:44→11:00)
[2018-08-01 01:55] VITALS: BP 128/75
[2018-08-01] MEDS ORDERED: APIX5TAB3 PO (02:51)
[2018-08-01] MEDS ORDERED: DULO30CA2 PO (02:51)
[2018-08-01] MEDS ORDERED: PROC10TA2 PO (02:51)
[2018-08-01] MEDS ORDERED: AMIO200T4 PO (02:51)
--- NOTE | 2018-08-01 04:15 | EKG ---
[address] [address] Test Date: 2018-07-31 Test Time: 23:12:28 Pat Name: WHITNEY FISHER Department: Room: 119 A Gender: F [employer]: : [id number] Requested By: ERIN PARRISH Order Number: [id number] Reading MD: Case Garvey Measurements Intervals [place] Rate: 70 P: 24 [place]: 176 QRS: -21 QRSD: 86 T: 6 QT: 384 QTc: 417 Interpretive Statements SINUS RHYTHM LEFTWARD AXIS Electronically Signed On 08-26-2018 11:36:15 CDT by Case Garvey
[2018-08-01 04:57] VITALS: BP 154/77
[2018-08-01] MEDS: IPRATRPIUM/ALBUTEROL 0.5/2.5MG 3 ML NEBU. NEB SCH ×2 (08:00→09:31)
[2018-08-01 08:11] VITALS: BP 129/68
--- NOTE | 2018-08-01 08:30 | RAD ---
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 Right-sided infusion port catheter tip overlying the right atrium is present. Heart size is normal. No infiltrate or pleural effusion. Minimal linear discoid atelectasis is questioned overlying the left lower lung field. Alternatively this may be artifactual. No acute bony process. Degenerative changes of glenohumeral joints especially left noted. Impression: No active disease. Electronically signed by: Alcon Chen MD (08/01/2018 8:27 AM) [facility]
--- NOTE | 2018-08-01 09:55 | RAD ---
Bilateral lower extremity venous Doppler dated 08/01/2018. No comparison available. Clinical data indication: Edema. Elevated d-dimer. FINDINGS: Grayscale, color-flow and spectral waveform analysis performed to include the deep venous system of both lower extremity. Normal compressibility, phasicity and augmentation of flow throughout. No filling defects are seen. IMPRESSION: No evidence of lower extremity deep vein thrombosis. Electronically signed by: Rodrick Stockton MD (08/01/2018 9:52 AM) [id number]
--- NOTE | 2018-08-01 09:56 | RAD ---
Bilateral upper extremity venous Doppler dated 08/01/2018. No comparison available. Clinical data indication: Elevated d-dimer and edema. FINDINGS: Grayscale, color-flow and spectral waveform analysis performed to include the deep venous system of both upper extremity. Normal compressibility, phasicity and augmentation of flow throughout. No filling defects are seen. IMPRESSION: No evidence of upper extremity deep vein thrombosis. Electronically signed by: Rodrick Stockton MD (08/01/2018 9:53 AM) [id number]
[2018-08-01 10:45] VITALS: BP 139/69
[2018-08-01 11:29] LABS: BACTERIA,URINE FEW /HPF (0-FEW); BILIRUBIN,URINE NEG (NEG); CLARITY,URINE CLEAR; COLOR,URINE YELLOW; GLUCOSE,URINE 250 mg/dL (NEG); NITRITE,URINE NEG (NEG); RBC,URINE RARE /HPF (0-2); SQUAMOUS EPITHELIAL CELL,UR FEW /LPF; UROBILINOGEN,URINE 0.2 mg/dL (0.2 mg/dL); WBC,URINE OCC /HPF (0-4)
[2018-08-01] MEDS ORDERED: ACET325T9 PO (14:22)
[2018-08-01 14:29] LABS: CALCIUM 8.9 mg/dL (8.5-10.1); CREATININE 1.1 mg/dL (0.6-1.0); GFR 57.3; POTASSIUM 4.6 mmol/L (3.5-5.1)
--- NOTE | 2018-08-01 15:06 | HP ---
ADMIT DATE: 08/01/2018 HISTORY OF PRESENT ILLNESS: The patient is an 83-year-old -[place] female patient, who came to the Emergency Room complaining of recurrent bouts of cough, shortness of breath that has worsened last night. She apparently tried to take her medication by mouth, which she should not be. She has mass that is obstructing her esophagus and in fact she has had percutaneous endoscopic gastrostomy tube placed by surgeon about 3 weeks ago at [facility]. She was extensively investigated in the Emergency Room and was found to have hyponatremia, mild hyperkalemia, acute and chronic kidney disease. Her D-dimer was found to be high also at 1.58 and she has had venous Doppler ultrasound of both upper and lower extremities, which were both negative for DVT. She was admitted and was started on IV fluid and started on apixaban as well as morphine and ondansetron. PAST MEDICAL HISTORY: Significant for hypertension, chronic kidney disease, hypothyroidism, morbid obesity, obstructive sleep apnea, on CPAP. She has also severe osteoarthritis. She has had also metastatic melanoma that apparently was diagnosed about in 2013 on the outer aspect of the left thigh surgically resected. She has been complaining of dysphagia that became extremely worse about 2 months ago. She has been on liquid diet for almost a month and then she ended up with percutaneous endoscopic gastrostomy tube 3 weeks ago. It could not be done by the hospice care transitions coordinator as he was unable to pass the gastroscope and was done surgically. PAST SURGICAL HISTORY: Significant for left total knee arthroplasty. She has a feeding PEG tube placement, appendectomy, back surgery, tonsillectomy and Port-A-Cath placement to her left subclavian vein. ALLERGIES: She has no known drug allergies. MEDICATIONS: She is currently on following medications: She is on apixaban 5 mg twice a day, amiodarone 200 mg daily, Roxicodone 5 mg per feeding tube every 4 hours as needed, Tylenol 650 mg 4 times a day, lorazepam 0.5 mg every 8 hours, polyethylene glycol 17 grams daily, prochlorperazine maleate 10 mg every 6 hours, ondansetron 4 mg every 6-8 hours, and levothyroxine sodium 100 mcg daily. FAMILY HISTORY: She had 8 brothers, all , except 1 and she has 7 sisters, 2 of them are . She has a very strong family history of hypertension, diabetes and chronic kidney disease. Her father at age of 84 because of aneurysm and mother at the age of 72 because of complication of diabetes. SOCIAL HISTORY: She is and lives with her . She apparently does not smoke, drink alcohol or use any recreational drugs. She is fairly independent. She is able to have a shower on her own, dress and undress. Her helps her with feeding tube and she walks with a walker. PHYSICAL EXAMINATION: GENERAL: On arrival to the Emergency Room, she looked pale, but no jaundice, cyanosis, or thyromegaly. No jugular venous distension. No lower limb edema. VITAL SIGNS: Her heart rate was 77, blood pressure 154/77, temperature was 97.4, respiratory rate 20, and oxygen saturation was 97% on 2 liters of oxygen. HEAD, EYES, EARS, NOSE, AND THROAT: Showed normocephalic, atraumatic. NECK: Supple. HEART: Showed normal first and second heart sounds with no gallop, rub or murmur. CHEST: Clear to auscultation. No crepitation or rhonchi. ABDOMEN: Distended, soft with a midline surgical incision healing nicely. She has a gastrostomy tube in place. There is no guarding or rigidity. No organomegaly. All hernial orifice intact. Bowel sounds normal. NEUROLOGIC: She was awake, alert, responding appropriately. All cranial nerves intact. EXTREMITIES: She moves extremities without difficulty. She ambulates with a walker. LABORATORY DATA: On arrival showed a white cell count of 9800, hemoglobin 12.3, hematocrit 36.5, MCV 93, and platelet count 360,000 with normal manual differential. Her chemistry showed serum sodium of 129, potassium 5.1, chloride 95, bicarbonate 28, anion gap of 6, BUN 38, creatinine 1.1, estimated GFR was 57 mL per minute. Her glucose 114, calcium was 9.3, magnesium 2.1. Total bilirubin, AST, ALT, alkaline phosphatase were normal. Her CK was only 43. Beta natriuretic peptide 178. Total protein was 7.4, albumin 2.7. Lipase was 72. Her TSH was 1.552. Urinalysis showed the urine was yellow, clear with a pH of 8.5, specific gravity 1.015. The urine was negative for protein, large amount of glucose, negative for ketones, blood, nitrite and leukocyte esterase. There are rare rbc's, occasional wbc's, and very few bacteria. Her prothrombin time was 10.3, INR of 1, aPTT was 41 and D-dimer is 1.58. Her chest x-ray showed that she has right-sided effusion Port-A-Cath. Tip overlying the right atrium is present. Her heart size is normal, no infiltrate or pleural effusion, minimal linear discoid atelectasis question overlying the left lower lung field alternating there may be artifactual. No acute bony process. Degenerative changes of the glenohumeral joint especially left is noted. She has venous Doppler ultrasound of both upper and lower extremities, which was negative for deep vein thrombosis. IMPRESSION: In summary, this is an 83-year-old female patient with metastatic melanoma with a mass in her chest that is causing dysphagia, who came with recurrent bouts of cough and hypoxia. She was found to have hyponatremia, hyperkalemia and acute on chronic kidney injury. She was started on IV fluid. PLAN: My plan is to repeat her labs again this morning and she can be discharged back home to keep her appointment with her oncologist tomorrow. PHILOMENA CORONA MD DR: NATALY/mina JOB#: [id number] / [id number]
--- NOTE | 2018-08-01 21:55 | DS ---
DATE OF DISCHARGE: 08/01/2018 ADDENDUM The patient has had no further episode of cough or phlegm. Her lab work showed that her serum sodium has improved to 133, potassium 4.6, chloride 99, bicarbonate 30, anion gap of 4, BUN 30, creatinine 1.1, estimated GFR was 57 mL per minute and glucose was 205, calcium was 8.9. Her lactic acid was only 11.1. As she has been stable and would like to keep her appointment for tomorrow with her oncologist at [facility], the patient was discharged to continue on her tube feeding as before. Continue with all her medications that include acetaminophen 650 mg 4 times a day, amiodarone 200 mg once a day, apixaban 5 mg twice a day, levothyroxine sodium 100 mcg daily, lorazepam 0.5 mg every 8 hours, ondansetron 4 mg every 6-8 hours, oxycodone 5 mg every 4 hours as needed, polyethylene glycol 17 grams daily p.r.n. for constipation, prochlorperazine 10 mg every 6 hours as needed. FINAL DISCHARGE DIAGNOSES: 1. Metastatic melanoma, massive causing esophageal obstruction and dysphagia. 2. Dysphagia, status post PEG tube placement about 3 weeks ago. 3. Hypertension. 4. Chronic kidney disease. 5. Hypothyroidism. 6. Obesity with obstructive sleep apnea, on CPAP. 7. Osteoarthritis. PHILOMENA CORONA MD DR: NATALY/mina JOB#: [id number] / [id number]
== END 2018-08-01 15:25 | disposition home or self-care (01) | DRG 683 ==
LOC: ER 23:01 → 1 SOUTH 08-01 01:22
PROVIDERS: ADMIT Internal Medicine; ATTEND Internal Medicine
DX: N17.9 Acute kidney failure, unspecified (principal); E87.1 Hypo-osmolality and hyponatremia; I48.91 Unspecified atrial fibrillation; Z85.820 Personal history of malignant melanoma of skin; Z90.49 Acquired absence of other specified parts of digestive tract; Z96.652 Presence of left artificial knee joint; I12.9 Hypertensive chronic kidney disease with stage 1 through stage 4 chronic kidney disease, or unspecified chronic kidney disease; N18.9 Chronic kidney disease, unspecified; E87.5 Hyperkalemia; E03.9 Hypothyroidism, unspecified; G47.33 Obstructive sleep apnea (adult) (pediatric); M19.90 Unspecified osteoarthritis, unspecified site; K22.2 Esophageal obstruction; E66.9 Obesity, unspecified; Z68.32 Body mass index [BMI] 32.0-32.9, adult; R09.02 Hypoxemia; Z82.49 Family history of ischemic heart disease and other diseases of the circulatory system; Z93.1 Gastrostomy status; Z83.3 Family history of diabetes mellitus
CPT/HCPCS: 36415; 71045; 80048; 80076; 81001; 82550; 83605; 83690; 83735; 83880; 84443; 84484; 85025; 85379; 85610; 85730; 87040; 93005; 93970; 94640; 94760; 96361; 96374; 96375; J0780; J1200; J2930; J7120; J7620; 99285-25

== ENCOUNTER 2018-10-05 17:44 | Inpatient (IN) | payer MEDICARE, OTHER ==
[~2018-10-05] VITALS: Ht 160 cm; Wt 85.1 kg
[~2018-10-05 17:44] MED LIST changes: +ACET325T9 PEG; +AMIO200T4 PEG; +APIX5TAB3 PO; +DULO30CA2 PO; +LEVO100T5 PEG; -LEVO100T5 PO; +LORA0.5T96 PEG; -LORA0.5T96 PO; +POLY17PO5 PEG; -POLY17PO5 PO; +PROC10TA2 PO
[2018-10-05 20:51] LABS: BASO % 0 % (0-3); EOS % 0 % (0-3); HEMATOCRIT 23.8 % (36.0-47.0); HEMOGLOBIN 7.5 g/dL (12.0-15.5); LYMPH # 0.7 x10^3/uL (1.0-4.8); LYMPH % 4 % (24-48); MEAN CORPUSCULAR HEMOGLOBIN 29 pg (25-35); MEAN CORPUSCULAR HGB CONC 31 g/dL (31-37); MEAN CORPUSCULAR VOLUME 93 fL (79-100); MONO # 0.2 x10^3/uL (0.0-1.1); MONO % 1 % (0-9); NEUT # 14.3 x10^3uL (1.8-7.7); NEUT % 94 % (31-73); PLATELET COUNT 481 x10^3/uL (140-400); RED BLOOD COUNT 2.57 x10^6/uL (3.50-5.40); RED CELL DISTRIBUTION WIDTH 15.8 % (11.5-14.5); WHITE BLOOD COUNT 15.2 x10^3/uL (4.0-11.0)
[2018-10-05 21:09] LABS: BILIRUBIN,URINE NEG (NEG); CLARITY,URINE CLEAR; COLOR,URINE STRAW; GLUCOSE,URINE NEG (NEG); NITRITE,URINE NEG (NEG); RBC,URINE RARE /HPF (0-2); UROBILINOGEN,URINE 1 mg/dL (0.2 mg/dL)
[2018-10-05 21:10] LABS: BACTERIA,URINE MANY /HPF (0-FEW); HYALINE CASTS, URINE OCC /HPF; SQUAMOUS EPITHELIAL CELL,UR OCC /LPF
[2018-10-05 21:13] LABS: FECAL OB PT POSITIVE (NEG)
[2018-10-05 21:17] LABS: ALBUMIN 2.2 g/dL (3.4-5.0); ALBUMIN/GLOBULIN RATIO 0.5 (1.0-1.7); CALCIUM 8.7 mg/dL (8.5-10.1); CREATININE 0.9 mg/dL (0.6-1.0); GFR 72.2; POTASSIUM 4.8 mmol/L (3.5-5.1); TOTAL BILIRUBIN 0.2 mg/dL (0.2-1.0); TOTAL PROTEIN 6.9 g/dL (6.4-8.2)
[2018-10-05 21:44] LABS: % BANDS 5 % (0-9); % BASOS 0 % (0-3); % EOS 0 % (0-5); % LYMPHS 5 % (24-48); % MONOS 1 % (0-10); % SEGS 89 % (35-66); ANISOCYTOSIS PRESENT; HYPOCHROMIA PRESENT; PLATELET CLUMP PRESENT; PLT ESTIMATE INCREASED (ADEQUATE)
[2018-10-05] MEDS ORDERED: IV NORMAL SALINE 50ML 50 ML ONE (22:59)
[2018-10-05] MEDS ORDERED: FUROSEMIDE 40 MG/4 ML VIAL IVP ONE (23:00)
[2018-10-05] MEDS ORDERED: cefTRIAXone SODIUM 1 GM VIAL ONE (23:00)
[2018-10-05] MEDS ORDERED: PANTOPRAZOLE IV 40 MG VIAL. IVP ONE (23:00)
--- NOTE | 2018-10-05 23:33 | PHYS DOC ---
Past History Past Medical History: Anxiety, Cancer, Hypertension, Hypotension, Other Additional Past Medical Histor: melanoma Past Surgical History: Other Additional Past Surgical Histo: PEG tube placed on July 17 Additional Smoking Information: Nonsmoker Alcohol Use: None Drug Use: None Adult General Chief Complaint Chief Complaint: GI PROBLEM HPI HPI Patient is an 83-year-old female who presents with dark fluid leaking around her PEG tube. Her PEG tube was placed on July 17 for melanoma that spread causing her to not be able to swallow. On Wednesday he was having black fluid leaking from around her PEG tube so she went to [facility] for evaluation. At they did something to fix her, and she ended up having to blood transfusion, and was treated for a urinary tract infection. She was discharged on Wednesday with no additional fluid leaking from her PEG tube. Since her discharge on Wednesday if she has had increased swelling to her bilateral lower extremities. She normally does not swelling in her leg but occasionally her left leg will mildly swell. The swelling has gotten worse to the point that she cannot walk. Yesterday she noticed that black liquid started draining from around the PEG tube again. She is currently complaining of nausea but has no pain. Denies lightheadedness or dizziness. Denies fever and chills. Review of Systems Review of Systems Constitutional: Denies fever or chills Eyes: Denies redness or eye pain HENT: Denies nasal congestion or sore throat Respiratory: Reports cough, denies shortness of breath Cardiovascular: Denies chest pain or palpitations GI: Denies abdominal pain and vomiting, reports nausea and leakage around PEG tube : Denies dysuria or hematuria Musculoskeletal: Denies back pain or joint pain Integument: Denies rash or skin lesions Neurologic: Denies headache, focal weakness or sensory changes Complete systems were reviewed and found to be within normal limits, except as documented in this note. Current Medications Current Medications Current Medications Medications (Trade) Dose Ordered Sig/Johana Start Time Stop Time Status Last Admin Dose Admin Ceftriaxone Sodium 1 gm/ Sodium Chloride 50 ml @ 100 mls/hr 1X ONCE 10/05/18 23:00 10/05/18 23:29 Furosemide (Lasix) 40 mg 1X ONCE 10/05/18 23:00 10/05/18 23:01 Pantoprazole Sodium (Protonix Vial) 80 mg 1X ONCE 10/05/18 23:00 10/05/18 23:01 Allergies Allergies Allergies Coded Allergies Type Severity Reaction Last Updated Verified No Known Drug Allergies 07/27/18 No Physical Exam Physical Exam Constitutional: Well developed, well nourished, no acute distress, weakness HENT: Normocephalic, atraumatic, oropharynx moist Eyes: PERRL, conjunctiva normal, no discharge Neck: Normal range of motion, no tenderness, supple Cardiovascular: Heart rate normal, regular rhythm Lungs & Thorax: Bilateral breath sounds clear to auscultation, no wheezing Abdomen: Soft, no tenderness, PEG tube in place with buttress loose and dark liquid discharge covering 4x4. Smell suggestive of acute melena.. Skin: Warm, dry, no erythema, no rash Back: No tenderness, no CVA tenderness Extremities: No tenderness, ROM intact, bilateral 4+ pitting edema without erythema, warmth, or pain. Neurologic: Alert and oriented X 3, normal motor function, normal sensory function, no focal deficits noted Psychologic: Affect normal, judgement normal, mood normal Current Patient Data Vital Signs Vital Signs Date Time Temp Pulse Resp B/P (MAP) Pulse Ox O2 Delivery O2 Flow Rate FiO2 10/05/18 18:31 98.4 64 20 96 Room Air Lab Results Laboratory Tests Test 10/05/18 19:30 10/05/18 20:07 Stool Occult Blood Positive (NEG) White Blood Count 15.2 x10^3/uL (4.0-11.0) H Red Blood Count 2.57 x10^6/uL (3.50-5.40) L Hemoglobin 7.5 g/dL (12.0-15.5) L Hematocrit 23.8 % (36.0-47.0) L Mean Corpuscular Volume 93 fL (79-100) Mean Corpuscular Hemoglobin 29 pg (25-35) Mean Corpuscular Hemoglobin Concent 31 g/dL (31-37) Red Cell Distribution Width 15.8 % (11.5-14.5) H Platelet Count 481 x10^3/uL (140-400) H Neutrophils (%) (Auto) 94 % (31-73) H Lymphocytes (%) (Auto) 4 % (24-48) L Monocytes (%) (Auto) 1 % (0-9) Eosinophils (%) (Auto) 0 % (0-3) Basophils (%) (Auto) 0 % (0-3) Neutrophils # (Auto) 14.3 x10^3uL (1.8-7.7) H Lymphocytes # (Auto) 0.7 x10^3/uL (1.0-4.8) L Monocytes # (Auto) 0.2 x10^3/uL (0.0-1.1) Eosinophils # (Auto) 0.0 x10^3/uL (0.0-0.7) Basophils # (Auto) 0.0 x10^3/uL (0.0-0.2) Segmented Neutrophils % 89 % (35-66) H Band Neutrophils % 5 % (0-9) Lymphocytes % 5 % (24-48) L Monocytes % 1 % (0-10) Eosinophils % 0 % (0-5) Basophils % 0 % (0-3) Platelet Estimate Increased (ADEQUATE) Platelet Clumps, EDTA Present Hypochromasia Present Anisocytosis Present Prothrombin Time 10.6 SEC (9.4-11.4) Prothrombin Time INR 1.0 (0.9-1.1) PTT 26 SEC (23-33) Urine Collection Type U cath Urine Color Straw Urine Clarity Clear Urine pH 7.5 Urine Specific [place] 1.015 Urine Protein Neg (NEG-TRACE) Urine Glucose (UA) Neg mg/dL (NEG) Urine Ketones (Stick) Neg mg/dL (NEG) Urine Blood Trace (NEG) Urine Nitrite Neg (NEG) Urine Bilirubin Neg (NEG) Urine Urobilinogen Dipstick 1 mg/dL (0.2 mg/dL) Urine Leukocyte Esterase Trace (NEG) Urine RBC Rare /HPF (0-2) Urine WBC 11-20 /HPF (0-4) Urine Squamous Epithelial Cells Occ /LPF Urine Transitional Epithelial Cells Mod /LPF Urine Renal Epithelial Cells Occ /LPF Urine Bacteria Many /HPF (0-FEW) Urine Hyaline Casts Occ /HPF Sodium Level 132 mmol/L (136-145) L Potassium Level 4.8 mmol/L (3.5-5.1) Chloride Level 98 mmol/L (98-107) Carbon Dioxide Level 26 mmol/L (21-32) Anion Gap 8 (6-14) Blood Urea Nitrogen 21 mg/dL (7-20) H Creatinine 0.9 mg/dL (0.6-1.0) Estimated GFR (Cockcroft-Gault) 72.2 BUN/Creatinine Ratio 23 (6-20) H Glucose Level 125 mg/dL (70-99) H Lactic Acid Level 1.2 mmol/L (0.4-2.0) Calcium Level 8.7 mg/dL (8.5-10.1) Total Bilirubin 0.2 mg/dL (0.2-1.0) Aspartate Amino Transferase (AST) 27 U/L (15-37) Alanine Aminotransferase (ALT) 50 U/L (14-59) Alkaline Phosphatase 114 U/L (46-116) Creatine Kinase 28 U/L (26-192) Creatine Kinase MB (Mass) 0.5 ng/mL (0.0-3.6) Creatine Kinase MB Relative Index 1.8 % (0-4) Troponin I Quantitative < 0.017 ng/mL (0-0.055) HE-Wnc-I-Type Natriuretic Peptide 976 pg/mL (0-449) H Total Protein 6.9 g/dL (6.4-8.2) Albumin 2.2 g/dL (3.4-5.0) L Albumin/Globulin Ratio 0.5 (1.0-1.7) L Lipase 43 U/L (73-393) L EKG EKG 10/05/18 at 1915: Normal sinus rhythm at [address] segment elevation. Leftward axis. [] Radiology/Procedures Radiology/Procedures Chest X-Ray AP Only Preliminary Read by ED physician: Atelectasis in lower lung beltrán. [] Course & Med Decision Making Course & Med Decision Making Pertinent Labs and Imaging studies reviewed. (See chart for details) Patient is a 83-year-old female with a past medical history of metastatic melanoma who presents with dark fluid leaking from PEG tube and lower extremity swelling. On Wednesday black fluid started leaking from around her PEG tube. She was admitted to where they fixed her PEG tube and upon further evaluation she was found to have a UTI. Per family, she was treated with two blood transfusions and antibiotics. She is a poor historian about any additional work up that was completed. On physical exam, her bilateral lower extremities have 4+ pitting edema without erythema, warmth, or pain. Her abdomen is soft and nontender with black fluid leaking from around the PEG tube and soaking the 4 x 4's. The buttress is loose, so it was tightened so that minimal to no gastric fluid is leaking. Heme occult testing of the leaking gastric fluid is positive. Laboratory evaluation indicates she is anemic and has a urinary tract infection. She is treated with ceftriaxone. Chest X-ray is negative for pulmonary edema. BNP is mildly elevated. She is given the diagnosis of peripheral edema and treated with lasix in anticipation that after admission to the hospital she may require a blood transfusion. Due to her GI bleed, and because we do not have a broadcast maintenance engineer at [facility] we decided to discuss with to see if they would be available for transfer. After talking with the transfer team they accepted her as a patient but were able to provide us with additional information from her last visit to . They told us that gastroenterology has already evaluated her GI bleed and found that the blood is coming from her me tastatic esophageal cancer and they have signed off. They told us that she is currently on palliative care, and received 2 blood transfusions during her last admission for symptomatic care. Since the source of her GI bleed is known, she is no longer requiring gastroenterology evaluation. We asked the patient if she would like to be transferred to or be admitted to [place]. Patient preferred to come to stay at [facility] for symptomatic treatment because she is closer to home. Patient requiring admission for further evaluation and treatment. Discussed with Dr. Lindsey (hospitalist) who is in agreement with admission. Discussed findings and plan with patient and family, who acknowledge understanding and agreement. Dragon Disclaimer Dragon Disclaimer This electronic medical record was generated, in whole or in part, using a voice recognition dictation system. Departure Departure: Impression: Primary Impression: Metastatic melanoma Additional Impressions: GI bleed Peripheral edema Anemia UTI (urinary tract infection) Disposition: ADMITTED INPATIENT Admitting Physician: Glen Lindsey Condition: STABLE Referrals: NELIDA BYNUM MD (PCP) Problem Qualifiers Additional Impressions: GI bleed GI bleed type/associated pathology: melena Qualified Codes: K92.1 - Melena Anemia Anemia type: unspecified type Qualified Codes: D64.9 - Anemia, unspecified UTI (urinary tract infection) Urinary tract infection type: acute cystitis Hematuria presence: without hematuria Qualified Codes: N30.00 - Acute cystitis without hematuria FAMILIA THOMPSON DO Oct 05, 2018 23:33
[2018-10-05] MEDS ORDERED: ONDANSETRON PF 4 MG/2 ML VIAL. IV PRN (23:45)
[2018-10-06] VITALS (7 sets, daily range): BP systolic 106–139; BP diastolic 53–73
--- NOTE | 2018-10-06 02:19 | RAD ---
AP portable chest radiograph 10/05/2018 Clinical History: Cough and congestion. An AP erect portable digital radiograph of the chest was obtained. Comparison study is dated 07/31/2018. A right internal jugular Bmnxel-b-Tool type catheter is unchanged in position. The cardiac silhouette is mildly enlarged. The thoracic aorta is mildly tortuous. Left lower lobe atelectasis and/or infiltrate is seen, medially. There is a small left pleural effusion. No pneumothorax is seen. The osseous structures are unchanged. Impression: Left lower lobe atelectasis and/or infiltrate with small left pleural effusion. Electronically signed by: Hilton Barlow MD (10/06/2018 2:16 AM) [facility]
[2018-10-06] MEDS ORDERED: OXYB5TAB7 PEG (04:00)
[2018-10-06] MEDS ORDERED: HYOS0.1265 SL (04:00)
[2018-10-06] MEDS ORDERED: PANT40TA5 PEG (04:00)
[2018-10-06] MEDS ORDERED: DEXA4TAB PEG (04:00)
[2018-10-06] MEDS ORDERED: ONDA8TAB15 PO (04:00)
[2018-10-06] MEDS ORDERED: METO-239 PEG (04:00)
[2018-10-06] MEDS ORDERED: LORA0.5T PEG (04:00)
[2018-10-06] MEDS ORDERED: OXYC5TAB2 PEG (04:00)
[2018-10-06] MEDS ORDERED: GLYC1TAB PEG (04:00)
[2018-10-06] MEDS ORDERED: GUAI118L20 PEG (04:00)
[2018-10-06 06:44] LABS: BASO % 0 % (0-3); EOS % 0 % (0-3); HEMATOCRIT 24.9 % (36.0-47.0); LYMPH # 0.9 x10^3/uL (1.0-4.8); LYMPH % 5 % (24-48); MEAN CORPUSCULAR HEMOGLOBIN 30 pg (25-35); MEAN CORPUSCULAR HGB CONC 32 g/dL (31-37); MEAN CORPUSCULAR VOLUME 92 fL (79-100); MONO # 0.6 x10^3/uL (0.0-1.1); MONO % 3 % (0-9); NEUT # 16.2 x10^3uL (1.8-7.7); NEUT % 92 % (31-73); PLATELET COUNT 478 x10^3/uL (140-400); RED BLOOD COUNT 2.71 x10^6/uL (3.50-5.40); RED CELL DISTRIBUTION WIDTH 15.6 % (11.5-14.5); WHITE BLOOD COUNT 17.7 x10^3/uL (4.0-11.0)
[2018-10-06] MEDS ORDERED: FUROSEMIDE 40 MG/4 ML VIAL IVP ONE ×2 (08:45)
--- NOTE | 2018-10-06 09:28 | HP ---
ADMIT DATE: 10/05/2018 ATTENDING PHYSICIAN: Dr. Louie. CHIEF COMPLAINT: Swelling and leakage from her PEG site. HISTORY OF PRESENT ILLNESS: The patient is 83. She has a terminal diagnosis. She has advanced stage IV metastatic esophageal cancer. She has been treated before at [facility]. She is already sent home with hospice care. Her prognosis is terminal. does most of the care. She does not eat because of blockage; therefore, she has a PEG tube placed. She was administered 4 cans of Isosource daily for her nutrition. There is some brownish liquid and drainage from the site, it does not appear infected. The small amount of blood is related to the esophageal tumor proximal to this. She has also had some leg swelling. She is to the point that she cannot walk. She also has fluid retention from her Decadron dose. PAST MEDICAL HISTORY: Significant for esophageal cancer with metastatic disease, previous history of metastatic melanoma, anemia of chronic disease, peripheral edema, and urinary tract infection. CURRENT MEDICATIONS: Reviewed, she was taking amiodarone, Decadron 8 mg 3 times a day, guaifenesin, Levsin, Synthroid, lorazepam, metoprolol, oxybutynin, oxycodone, Protonix and MiraLax. She is a DNR per advanced directive, nonsmoker, nondrinker. ALLERGIES: She has no known drug allergies. FAMILY HISTORY: Noncontributory. REVIEW OF SYSTEMS: Significant for the terminal condition, she has been a hospice patient. She gets around with wheelchair. She had been ambulatory with assistance. She denied any pain. She is not short of breath. She has adequate saturation on room air. All other systems reviewed and found to be negative. PHYSICAL EXAMINATION: VITAL SIGNS: Showed a blood pressure of 139/69, temperature 97.2, pulse rate 98 and regular. HEENT: Head is without trauma. Pupils are reactive. She has alopecia. NECK: Supple. No bruits identified. LUNGS: Otherwise clear. She has a Port-A-Cath in the right supraclavicular fossa. CARDIOVASCULAR: Distant heart tones. No obvious gallops. Peripheral pulses are palpable and full. ABDOMEN: Soft. There is no guarding. There is a functional PEG tube from the left upper quadrant. There was minimal amount of brown drainage emanating from this. SKIN: There is no inflammation or irritation of the skin. The PEG is functional and patent. EXTREMITIES: Showed 4+ edema, pitting all the way up to her thighs. NEUROLOGIC: Focally intact. No deficits. PERTINENT LABORATORY DATA: Her hemoglobin on admission was 7.5 g/dL with the diuresis up to 8.0 mg/dL. Chemistry panel showed normal electrolytes, BUN and creatinine, creatinine 0.9 mg percent. ASSESSMENT: 1. An 83-year-old female has end-stage terminal esophageal cancer. 2. Slight oozing from her PEG tube, which is manageable. 3. Peripheral edema secondary to the mineralocorticoid effect of Decadron. 4. Dysphagia. 5. Anemia of chronic disease. PLAN: 1. Admit to the inpatient unit. 2. IV diuretics. 3. We shall stop her Decadron. 4. Continue home meds as the PEG tube is functioning. 5. Pain control as needed. 6. I will have our nurse case manager discuss with the patient and our hospice team as to further evaluation of what to do should any issues arise. I am under the impression she already is a hospice patient. TOMY LOUIE MD DR: KRISTIE/mina JOB#: [id number] / [id number] NELIDA Chambers MD
[2018-10-07 06:05] VITALS: BP 136/65
[2018-10-07 09:00] VITALS: BP 115/54
[2018-10-07] MEDS ORDERED: HEPARIN PF 500 UNIT/5 ML DISP.SYRIN. IV ONE (09:45)
--- NOTE | 2018-10-10 14:12 | EKG ---
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
== END 2018-10-07 10:30 | disposition home health service (06) | DRG 393 ==
LOC: ER 17:44 → ICU 23:40 → UNDODISIN 10-07 10:30
PROVIDERS: ADMIT Hospitalist; ATTEND Hospitalist
DX: K94.23 Gastrostomy malfunction (principal); I50.23 Acute on chronic systolic (congestive) heart failure; E41 Nutritional marasmus; K92.2 Gastrointestinal hemorrhage, unspecified; N39.0 Urinary tract infection, site not specified; C15.9 Malignant neoplasm of esophagus, unspecified; I11.0 Hypertensive heart disease with heart failure; F41.9 Anxiety disorder, unspecified; Z85.820 Personal history of malignant melanoma of skin; Z51.5 Encounter for palliative care; D63.8 Anemia in other chronic diseases classified elsewhere; R13.10 Dysphagia, unspecified; T38.0X5A Adverse effect of glucocorticoids and synthetic analogues, initial encounter; Y92.89 Other specified places as the place of occurrence of the external cause; Z68.33 Body mass index [BMI] 33.0-33.9, adult
CPT/HCPCS: 36415; 71045; 80053; 81001; 82274; 82553; 83605; 83690; 83880; 84484; 85007; 85025; 85610; 85730; 86850; 86900; 86901; 87086; 87186; 87641; 93005; 96365; 96375; C9113; J0696; J1940; 99285-25

== ENCOUNTER 2018-10-10 13:57 | Observation (INO) | payer MEDICARE, OTHER ==
[~2018-10-10] VITALS: Ht 160 cm; Wt 83.9 kg
[~2018-10-10 13:57] MED LIST changes: +DEXA4TAB PEG; +GLYC1TAB PEG; +GUAI118L20 PEG; +HYOS0.1265 SL; +LORA0.5T PEG; +METO-239 PEG; +ONDA8TAB15 PO; +OXYB5TAB7 PEG; +OXYC5TAB2 PEG; +PANT40TA5 PEG
[2018-10-10] MEDS ORDERED: IV NORMAL SALINE 1,000ML 1,000 ML IV SCH (14:37)
--- NOTE | 2018-10-10 14:50 | PHYS DOC ---
Past History Past Medical History: Anxiety, Cancer, Hypertension, Hypotension, Other Additional Past Medical Histor: melanoma Past Surgical History: Other Additional Past Surgical Histo: PEG tube placed on July 17 Alcohol Use: None Drug Use: None Adult General Chief Complaint Chief Complaint: MULTIPLE COMPLAINTS HPI HPI Patient is a 83-year-old female who presents with generalized weakness. This was today. Patient was too weak to get out of the bed. She has had a cough present for the past several months. Worse today. She has a history of previous reflux from her feeding tube triggering an aspiration type pneumonia according to family. No fever. Family notes that there has been drainage around her feeding tube of clear liquid. She has a history of melanoma in the esophagus. Last radiation therapy was February 2018. This is the most recent treatment for her cancer.[] Review of Systems Review of Systems Constitutional: Denies fever or chills [] Eyes: Denies change in visual acuity, redness, or eye pain [] HENT: Denies nasal congestion or sore throat [] Respiratory: Denies cough or shortness of breath [] Cardiovascular: No chest pain or palpitations[] GI: Denies abdominal pain, nausea, vomiting, bloody stools or diarrhea , see history of present illness[] : Denies dysuria or hematuria [] Musculoskeletal: Denies back pain or joint pain [] Integument: Denies rash or skin lesions [] Neurologic: Denies headache, focal weakness or sensory changes [] Endocrine: Denies polyuria or polydipsia [] All other systems were reviewed and found to be within normal limits, except as documented in this note. Current Medications Current Medications Current Medications Medications (Trade) Dose Ordered Sig/Johana Start Time Stop Time Status Last Admin Dose Admin Sodium Chloride 1,000 ml @ 100 mls/hr Q10H 10/10/18 14:37 10/11/18 00:36 UNV Allergies Allergies Allergies Coded Allergies Type Severity Reaction Last Updated Verified No Known Drug Allergies 07/27/18 No Physical Exam Physical Exam Constitutional: Well developed, well nourished, no acute distress, non-toxic appearance. [] HENT: Normocephalic, atraumatic, bilateral external ears normal, oropharynx dry, no oral exudates, nose normal. [] Eyes: PERRLA, EOMI, conjunctiva normal, no discharge. [] Neck: Normal range of motion, no tenderness, supple, no stridor. [] Cardiovascular:Heart rate regular rhythm, no murmur [] Lungs & Thorax: Bilateral breath sounds clear to auscultation [] Abdomen: Bowel sounds normal, soft, no tenderness, no masses, no pulsatile masses. Feeding tube appears to be in good position. No erythema. [] Skin: Warm, dry, no erythema, no rash. [] Back: No tenderness, no CVA tenderness. [] Extremities: No tenderness, no cyanosis, no clubbing, ROM intact, no edema. [] Neurologic: Alert and oriented X 3, normal motor function, normal sensory function, no focal deficits noted. [] Psychologic: Affect normal, judgement normal, mood normal. [] EKG EKG EKG shows a sinus rhythm at 85 bpm, left axis, no ST elevation. Normal QTC. No acute changes when compared with EKG of 07/31/2018.[] Radiology/Procedures Radiology/Procedures PROCEDURE: PORTABLE CHEST 1V EXAM: CHEST 1 VIEW History: Weakness, cough COMPARISON: 10/05/2018 TECHNIQUE: Single portable radiograph of the chest FINDINGS: Low lung volumes and technique accentuates heart size and pulmonary vascularity. Right-sided Port-A-Cath is identified. There is development of focal airspace opacity identified in the right upper lobe of the lung likely pneumonia or atelectasis. IMPRESSION: New focal airspace opacity identified in the right upper lobe of the lung likely pneumonia or atelectasis. Follow-up to resolution.[] Course & Med Decision Making Course & Med Decision Making Pertinent Labs and Imaging studies reviewed. (See chart for details) ED course: Patient arrived, was placed in bed, tolerated exam well. Patient was seen by Caridad who knows the patient from previous admission. Patient was recently on hospice. Hospice is being re-engaged given her history of esophageal cancer. Consultation was made with the hospitalist service for possibility of admission.[] Dragon Disclaimer Dragon Disclaimer This electronic medical record was generated, in whole or in part, using a voice recognition dictation system. Departure Departure: Referrals: NELIDA BYNUM MD (PCP) VENKATA FREY DO Oct 10, 2018 14:50
[2018-10-10] MEDS ORDERED: IOHEXOL 350 MG/ML 100 ML VIAL. IV ONE (15:00)
--- NOTE | 2018-10-10 15:04 | EKG ---
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
[2018-10-10 15:11] LABS: BASO % 0 % (0-3); EOS % 1 % (0-3); HEMATOCRIT 23.1 % (36.0-47.0); HEMOGLOBIN 7.5 g/dL (12.0-15.5); LYMPH # 0.2 x10^3/uL (1.0-4.8); LYMPH % 3 % (24-48); MEAN CORPUSCULAR HEMOGLOBIN 29 pg (25-35); MEAN CORPUSCULAR HGB CONC 33 g/dL (31-37); MEAN CORPUSCULAR VOLUME 90 fL (79-100); MONO # 0.2 x10^3/uL (0.0-1.1); MONO % 4 % (0-9); NEUT # 6.6 x10^3uL (1.8-7.7); NEUT % 93 % (31-73); PLATELET COUNT 394 x10^3/uL (140-400); RED BLOOD COUNT 2.57 x10^6/uL (3.50-5.40); RED CELL DISTRIBUTION WIDTH 15.7 % (11.5-14.5); WHITE BLOOD COUNT 7.1 x10^3/uL (4.0-11.0)
--- NOTE | 2018-10-10 15:18 | RAD ---
EXAM: CHEST 1 VIEW History: Weakness, cough COMPARISON: 10/05/2018 TECHNIQUE: Single portable radiograph of the chest FINDINGS: Low lung volumes and technique accentuates heart size and pulmonary vascularity. Right-sided Port-A-Cath is identified. There is development of focal airspace opacity identified in the right upper lobe of the lung likely pneumonia or atelectasis. IMPRESSION: New focal airspace opacity identified in the right upper lobe of the lung likely pneumonia or atelectasis. Follow-up to resolution. Electronically signed by: Matty Herrera MD (10/10/2018 3:15 PM) [place] [id number]
[2018-10-10 15:19] LABS: ALBUMIN 1.7 g/dL (3.4-5.0); ALBUMIN/GLOBULIN RATIO 0.4 (1.0-1.7); CALCIUM 8.4 mg/dL (8.5-10.1); CREATININE 1.2 mg/dL (0.6-1.0); GFR 51.8; MAGNESIUM 2.4 mg/dL (1.8-2.4); POTASSIUM 4.5 mmol/L (3.5-5.1); TOTAL BILIRUBIN 0.4 mg/dL (0.2-1.0); TOTAL PROTEIN 6.2 g/dL (6.4-8.2)
[2018-10-10] MEDS ORDERED: ACETAMINOPHEN 325 MG TABLET PO PRN (15:45)
[2018-10-10] MEDS ORDERED: ONDANSETRON PF 4 MG/2 ML VIAL. IV PRN ×2 (15:45→17:45)
[2018-10-10] MEDS ORDERED: AMPICILLIN/SULBACTAM 3 GM in IV NORMAL SALINE 100ML 100 ML IV SCH (16:00)
[2018-10-10 17:13] VITALS: BP 121/75
[2018-10-10] MEDS ORDERED: MORPHINE SULFATE 4 MG/ML DISP.SYRIN. IV PRN (17:15)
[2018-10-10] MEDS ORDERED: SCOPOLAMINE 1.5MG PATCH. TD SCH (17:30)
[2018-10-10 19:23] VITALS: BP 126/77
== END 2018-10-10 19:30 | disposition hospice, inpatient (51) ==
LOC: ER 13:57 → 1 SOUTH 15:35 → ER 16:27
PROVIDERS: ADMIT Internal Medicine; ATTEND Internal Medicine
DX: C15.9 Malignant neoplasm of esophagus, unspecified (principal); K21.9 Gastro-esophageal reflux disease without esophagitis; F41.9 Anxiety disorder, unspecified; I95.9 Hypotension, unspecified; E66.9 Obesity, unspecified; G47.33 Obstructive sleep apnea (adult) (pediatric); R13.10 Dysphagia, unspecified; E66.01 Morbid (severe) obesity due to excess calories; I12.9 Hypertensive chronic kidney disease with stage 1 through stage 4 chronic kidney disease, or unspecified chronic kidney disease; N18.9 Chronic kidney disease, unspecified; Z85.820 Personal history of malignant melanoma of skin; Z85.01 Personal history of malignant neoplasm of esophagus; Z98.890 Other specified postprocedural states
CPT/HCPCS: 96374; 96375; 99284; G0378; J2270; J2405; 36415; 71045; 80053; 83605; 83690; 83735; 84484; 85025; 87040; 93005; G0379

== ENCOUNTER 2018-10-10 19:56 | Inpatient (IN) | payer MEDICARE, OTHER ==
[~2018-10-10] VITALS: Ht 160 cm; Wt 84.9 kg
--- NOTE | 2018-10-10 20:15 | NUR ---
Pt was admitted to in Hospice with Jojo for hx of Esophageal CA. Pt admitted to [facility] room 119 via [facility] accompanied by EMS and nursing staff. Pt transferred from [facility] to bed x3 assist. Admission assessment completed. Health history and home medications reviewed. Pt recently DC from here and was seen at for dark PEG tube drainage. Pt reports increase in SOA and cough with leg swelling and increased weakness. Pt lives at home with and daughter and has Home Health. Pt was incont of urine and marc-care given, coccyx noted to be intact. Plan of care reviewed with pt & family, understanding verbalized but reinforcement needed. Pt was given written information regarding hospital policies, unit procedures and contact persons. Valuables were checked and all were left in room. Call light within reach. Will continue to monitor. Pt NPO. [facility]jo hospice nurse here.
[2018-10-10] MEDS ORDERED: ACETAMINOPHEN 325 MG TABLET PO PRN (20:30)
[2018-10-10] MEDS ORDERED: ONDANSETRON PF 4 MG/2 ML VIAL. IV PRN (20:30)
[2018-10-10] MEDS ORDERED: MORPHINE SULFATE 4 MG/ML DISP.SYRIN. IV PRN (20:30)
[2018-10-10 22:06] VITALS: BP 126/77
--- NOTE | 2018-10-11 08:01 | EKG ---
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
[2018-10-11] MEDS: MORPHINE SULFATE 4 MG/ML DISP.SYRIN. IV SCH ×15 (08:10→23:26)
--- NOTE | 2018-10-11 11:16 | HP ---
ADMIT DATE: 10/10/2018 HISTORY OF PRESENT ILLNESS: The patient is an 83-year-old -[place] female patient, who apparently was seen yesterday at the Emergency Room with a complaint of generalized weakness. She has also had cough at present for the past several months and that has worsened on the day of admission. She has history of previous reflux from her feeding tube triggering an aspiration-type pneumonia according to her family. 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 She was on hospice and given that she has been in and out of this hospital numerous times, the decision was made to admit her for inpatient hospice care and we consulted [facility] for comfort and end of life care. PAST MEDICAL HISTORY: Significant for hypertension, chronic kidney disease, hypothyroidism, morbid obesity, obstructive sleep apnea, on CPAP. She also has severe osteoarthritis, has had metastatic melanoma that apparently was diagnosed in 2013 on the outer aspect of her left thigh that was surgically resected. She has been complaining of dysphagia that became extremely worse about 4 months ago. She has been on liquid diet for almost a month and then she ended up with a percutaneous endoscopic gastrostomy tube. It was actually placed surgically. PAST SURGICAL HISTORY: Significant for left total knee arthroplasty. She has a feeding PEG tube placement, appendectomy, back surgery, tonsillectomy, Port-A-Cath placement in the left subclavian vein and resection of the melanoma on the outer aspect of left thigh. ALLERGIES: She has no known drug allergies. FAMILY HISTORY: She had 8 brothers, all , except 1. She has 7 sisters, 2 of them are . She has a very strong family history of hypertension, diabetes and chronic kidney disease. Her father at age of 84 because of aneurysm and mother at the age of 72 because of complication of diabetes. SOCIAL HISTORY: She is and lives with . She apparently does not smoke, drink alcohol or recreational drugs. She is fairly independent. She is able to have a shower before, but now she is dependent in her all ADL activities. MEDICATIONS: She is currently on following medications: She is on glycopyrrolate 1 mg tablet per feeding tube 3 times a day, hyoscyamine sulfate 0.125 mg sublingually daily for nausea and vomiting, amiodarone 200 mg daily, metoprolol succinate 12.5 mg twice a day, oxycodone 5 mg every 4 hours, oxycodone 10 mg every 4 hours, acetaminophen 1000 mg every 8 hours, lorazepam 0.5 mg tablet per feeding tube every 4 hours, lorazepam 1 mg every 4 hours. She is on guaifenesin/codeine phosphate 10 mL per feeding tube every 6 hours, Protonix 40 mg once a day, polyethylene glycol 17 grams daily, ondansetron 8 mg every 6 hours. She is on dexamethasone 8 mg per feeding tube every 8 hours and she is on levothyroxine 100 mcg once a day, oxybutynin chloride 5 mg twice a day. PHYSICAL EXAMINATION: GENERAL: On arrival to the Emergency Room, she was somewhat pale, but no jaundiced. No cyanosis or thyromegaly. No jugular venous distention. Mild bilateral lower limb edema. VITAL SIGNS: Her heart rate was 79, blood pressure was 126/77, temperature was 98.2, respiratory rate was 15 and oxygen saturation was 91% on room air. HEAD, EYES, EARS, NOSE AND THROAT: Normocephalic, atraumatic. NECK: Supple. HEART: Showed normal first and second heart sounds with no gallop, rub or murmur. CHEST: Clear to auscultation. No crepitation or rhonchi. ABDOMEN: Distended, soft, nontender. No guarding or rigidity. No organomegaly and gastrostomy tube in place. NEUROLOGIC: She is lethargic, but arousable with no obvious lateralizing sign. LABORATORY DATA: Showed a white cell count 7100, hemoglobin 7.5, hematocrit 23, MCV 90 and platelet count of 394,000. Her chemistry showed serum sodium of 124, potassium 4.5, chloride 88, bicarbonate 27, anion gap of 9, BUN 33, creatinine 1.2, estimated GFR was 52 mL per minute. Her glucose 166, lactic acid was 2.1. Calcium was 8.4, magnesium 2.4. Total bilirubin, AST, ALT, alkaline phosphatase were normal. Total protein was 6.2, albumin 1.7. Lipase was 21. ASSESSMENT AND PLAN: In summary, this is an 83-year-old -[place] female patient who was with basically metastatic melanoma to the esophagus with severe dysphagia. For her dysphagia, she has had percutaneous endoscopic gastrostomy tube placed and hypertension, chronic kidney disease, hypothyroidism, obesity, obstructive sleep apnea, osteoarthritis. She continued to have also hyponatremia with serum sodium 124 and the patient was admitted for inpatient hospice care. We did consult [facility] hospice to assist with the management, started her on morphine, Ativan, scopolamine and oxygen for comfort. PHILOMENA CORONA MD DR: NATALY/mian JOB#: [id number] / [id number]
[2018-10-11] MEDS: ATROPINE 1% OPHTH SOLUTION 5ML BOTTLE. SL PRN ×6 (14:11→22:18)
[2018-10-11 16:08] VITALS: BP 121/66
--- NOTE | 2018-10-11 22:39 | PN ---
DATE: 10/11/2018 SUBJECTIVE: The patient was admitted yesterday for inpatient hospice care. She has metastatic melanoma with a mass in the esophagus causing severe obstruction and dysphagia for which she has surgically placed gastrostomy tube. She has been having generalized weakness and cough that has been going on for months and she was basically started on morphine and Ativan. We started at 4 mg every 2 hours of morphine and 1 mg of Ativan every 4 hours. Nursing staff stated that she continued to be somewhat restless and tachypneic and therefore we have increased frequency and dosage. PHYSICAL EXAMINATION: GENERAL: When I saw her, she was pale, but no jaundice, cyanosis, or thyromegaly. No jugular venous distension. No limb edema. VITAL SIGNS: Her heart rate was 79, blood pressure 126/77, temperature was 98.2, respiratory rate was 20 and oxygen saturation was 91%. HEAD, EYES, EARS, NOSE AND THROAT: Normocephalic, atraumatic. NECK: Supple. HEART: Showed normal first and second heart sounds with no gallop, rub or murmur. CHEST: Showed bilateral crackles, but could not appreciate any rhonchi. ABDOMEN: Distended, soft with gastrostomy tube in place. NEUROLOGIC: She is lethargic, arousable. All her cranial nerves are intact. She moves extremities without difficulty, although she is mostly bed bound. PLAN: Plan is to basically continue with the inpatient hospice care. FINAL DIAGNOSES: 1. Metastatic carcinoma massive causing esophageal obstruction and dysphagia. 2. Chronic hyponatremia. 3. Dysphagia, status post percutaneous endoscopic gastrostomy tube placement. 4. Hypertension. 5. Chronic kidney disease. 6. Hypothyroidism. 7. Obesity with obstructive sleep apnea. 8. Osteoarthritis. PHILOMENA CORONA MD DR: NATALY/mina JOB#: [id number] / [id number]
[2018-10-12] MEDS: MORPHINE SULFATE 4 MG/ML DISP.SYRIN. IV SCH ×6 (00:18→06:00)
[2018-10-12] MEDS: ATROPINE 1% OPHTH SOLUTION 5ML BOTTLE. SL PRN (01:29)
--- NOTE | 2018-10-12 04:59 | NUR ---
At 0400 pts heart rate began dropping from 100's to 60's and pt began agonal breathing. 0405 Family called and notified of pts decline in condition. Current heart rate in the 40's. 0412 pt , pronounced by this RN and Jyotsna Malik RN. 0425 family arrived and notified of pts . At 0430 [facility] notified and [facility] notified. 5 Dr Robles notified. At this time family at bedside and grieving appropriately. Will notify home once family is ready.
--- NOTE | 2018-10-12 06:35 | NUR ---
home here to machine pecan picker body. Family at bedside. body released to home at this time.
[2018-10-13] MEDS ORDERED: SCOPOLAMINE 1.5MG PATCH. TD SCH (09:00)
--- NOTE | 2018-10-21 13:08 | DS ---
DATE OF DISCHARGE: 10/12/2018 SUMMARY HOSPITAL COURSE: This is an 83-year-old -[place] female patient who is known to have metastatic malignant melanoma that was diagnosed in 2013. Initial lesion was in the outer aspect of her left thigh that was surgically resected. She has been complaining of dysphagia that became extremely worse about 4 months ago and has been on liquid diet for almost a month, then she ended up with percutaneous endoscopic gastrostomy tube that was placed surgically. The patient continued to do poorly and the patient has been in and out of the hospital numerous times. She continued to have hyponatremia that is worsening and she was admitted for inpatient hospice care and was started on morphine, Ativan, scopolamine and oxygen for comfort. The patient's condition has gradually deteriorated and her heart rate began dropping from 100 to 60s and started having agonal breathing and the patient was pronounced at around 4:30 in the morning. The cause of is cardiopulmonary arrest, acute respiratory failure, aspiration pneumonia, dysphagia, metastatic melanoma with a tumor obstructing her esophagus. PHILOMENA CORONA MD DR: NATALY/mina JOB#: [id number] / [id number]
== END 2018-10-12 06:50 | disposition expired | DRG 374 ==
LOC: 1 SOUTH 19:56
PROVIDERS: ADMIT Internal Medicine; ATTEND Internal Medicine
DX: C78.89 Secondary malignant neoplasm of other digestive organs (principal); J69.0 Pneumonitis due to inhalation of food and vomit; J96.00 Acute respiratory failure, unspecified whether with hypoxia or hypercapnia; E87.1 Hypo-osmolality and hyponatremia; K21.9 Gastro-esophageal reflux disease without esophagitis; I46.9 Cardiac arrest, cause unspecified; Z51.5 Encounter for palliative care; I12.9 Hypertensive chronic kidney disease with stage 1 through stage 4 chronic kidney disease, or unspecified chronic kidney disease; N18.9 Chronic kidney disease, unspecified; G47.33 Obstructive sleep apnea (adult) (pediatric); M19.90 Unspecified osteoarthritis, unspecified site; R13.10 Dysphagia, unspecified; K22.2 Esophageal obstruction; E03.9 Hypothyroidism, unspecified; E66.9 Obesity, unspecified; Z96.652 Presence of left artificial knee joint; Z90.49 Acquired absence of other specified parts of digestive tract; Z83.3 Family history of diabetes mellitus; Z82.49 Family history of ischemic heart disease and other diseases of the circulatory system; Z93.1 Gastrostomy status; Z68.33 Body mass index [BMI] 33.0-33.9, adult; Z85.828 Personal history of other malignant neoplasm of skin
CPT/HCPCS: 36415; 71045; 80053; 83605; 83690; 83735; 84484; 85025; 87040; 93005; J2060; J2270; Q5005